=== PATIENT | female | born 1955 | race Caucasian/White ===

== ENCOUNTER 2017-03-05 16:22 | Inpatient (IN) | payer OTHER ==
[~2017-03-05] VITALS: Ht 157.5 cm; Wt 80.4 kg
[2017-03-05] MEDS ORDERED: KETOROLAC TROMETHAMINE 30 MG/ML VIAL IV STA (17:29)
[2017-03-05] MEDS ORDERED: SODIUM CHLORIDE 0.9% 1000ML 1,000 ML IV STA (17:29)
[2017-03-05] MEDS ORDERED: PROMETHAZINE HCL INJ 12.5 MG in SODIUM CHLORIDE 0.9% 50ML 50 ML IV STA (17:32)
[2017-03-05] MEDS ORDERED: TAPE1TAB11 PO (17:42)
[2017-03-05] MEDS ORDERED: TOPI50TA16 PO (17:42)
[2017-03-05] MEDS ORDERED: DULO60CA44 PO (17:42)
[2017-03-05] MEDS ORDERED: CLB/200 PO (17:42)
[2017-03-05] MEDS ORDERED: SIMV20TA2 PO (17:42)
[2017-03-05] MEDS ORDERED: SULF800T23 PO (17:42)
[2017-03-05] MEDS ORDERED: GABA-113 PO (17:42)
[2017-03-05] MEDS ORDERED: NAPR-1169 PO (17:42)
[2017-03-05] MEDS ORDERED: HYDR-3124 PO (17:42)
[2017-03-05] MEDS ORDERED: TAMS0.4C38 PO (17:42)
[2017-03-05] MEDS ORDERED: ZONI100C39 PO (17:42)
[2017-03-05] MEDS ORDERED: TRIATAB3 PO (17:42)
[2017-03-05] MEDS ORDERED: LEVO50TA6 PO (17:42)
[2017-03-05 18:35] LABS: BLOOD UREA NITROGEN 20 mg/dl (7-18); CALCIUM 9.5 mg/dl (8.5-10.1); CARBON DIOXIDE 26 mmol/L (21-32); CHLORIDE 105 mmol/L (98-107); GLUCOSE 139 mg/dl (70-99); POTASSIUM 2.6 mmol/L (3.5-5.1); SODIUM 142 mmol/L (136-145)
[2017-03-05 18:48] LABS: HEMATOCRIT 45.8 % (37-47); MEAN CELL VOLUME 87.9 fL (80-100); MEAN CORPUSCULAR HEMOGLOBIN 29.4 pg (25-34); MEAN CORPUSCULAR HGB CONC 33.4 g/dl (32-36); MEAN PLATELET VOLUME 10.2 fL (7.4-10.4); PLATELET COUNT 231 K/uL (130-400); RED BLOOD COUNT 5.21 M/uL (4.2-5.4); WHITE BLOOD COUNT 10.46 K/uL (4.8-10.8)
[2017-03-05 18:54] LABS: URINE APPEARANCE TURBID (CLEAR); URINE BILIRUBIN NEG (NEG); URINE COLOR DK YELLOW; URINE EPITHELIAL CELL AUTO >30 /lpf (0-5); URINE NITRITE NEG (NEG); URINE PH >= 9.0 (4.5-7.5); URINE SPECIFIC GRAVITY 1.019 (1.000-1.030); UROBILINOGEN NEG (NEG)
[2017-03-05 18:57] LABS: MANUAL MICROSCOPIC REQUIRED? NO; REVIEW REQ? NO
[2017-03-05] MEDS ORDERED: POTASSIUM CHLORIDE 10 MEQ / 100ML WTR IV STA (19:11)
[2017-03-05 19:26] LABS: BASO % 0.1 %; BASO ABS # 0.01 K/uL (0-0.2); COMPLETE YES; IG% 0.5 %; LYMPH % 6.3 %; LYMPH ABS # 0.66 K/uL (1.2-3.4); MONO % 2.5 %; NEUT % 90.6 %
[2017-03-05] MEDS ORDERED: POTASSIUM CHLR 20 MEQ / WTR 20 MEQ in PREMIXED WATER 100 ML IV STA (19:38)
[2017-03-05] MEDS ORDERED: MAGNESIUM HYDROXIDE SUSP 30 ML UDC PO PRN (19:45)
[2017-03-05] MEDS ORDERED: ALUMINUM/MAGNESIUM/SIMETH (MAALOX MAX) 30 ML UDC PO PRN (19:45)
[2017-03-05] MEDS ORDERED: POLYETHYLENE (MIRALAX) 17 GM PACK PO PRN (19:45)
[2017-03-05] MEDS ORDERED: METOCLOPRAMIDE HCL INJ 5 MG/ML 2 ML VIAL IV PRN (19:45)
--- NOTE | 2017-03-05 19:52 | History and Physical ---
History & Physical Date & Time of Service: Mar 05, 2017 at 19:51 Chief Complaint: Severe Pain, Nausea, Vomiting Primary Care Physician: Garett Jimenes DO History of Present Illness Source: patient, spouse Mrs China Santamaria is a 62 yo F with hx of previous L sided kidney stone who presents with intractable vomiting and severe L sided pain. She has a hx of a L sided kidney stone which occurred about 3 years ago and passed on its own after 3 months. She reports she drinks a lot of water and avoids caffeine and dark beverages to prevent further stone formation. She developed sudden onset, R sided lower abdominal pain suddenly yesterday while doing her usual activities. She reports it made her fall to her knees and was associated with vomiting. She called the ambulance and went to [facility]. She had a CT scan which showed the stone to be 2mm at the Right VUJ. She was given antiemetics and discharged home. She was also given IV and PO Potassium replacement for a K+ of 2.7 yesterday. She slept ok, but woke up in the morning with persistent vomiting. She reported severe pain again. She called [facility] and was told to go to a different facility which had Urology services. 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 She feels somewhat better now but has still recently vomited. 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 No pertinent FHx Social History Smoking Status: Never Smoker Smokeless Tobacco Use: No Alcohol Use: none Drug Use: none Marital Status: Housing status: lives with family Immunizations History of Influenza Vaccine: Unknown History of Tetanus Vaccine?: Unknown History of Pneumococcal: Unknown History of Hepatitis B Vaccine: Unknown Multi-Drug Resistant Organisms History of MDRO: No Allergies Coded Allergies: Acetaminophen (Unverified Allergy, Severe, VOMIT,TONGUE SWELLING, 03/05/17) Oxycodone (Unverified Allergy, Severe, VOMIT,TONGUE SWELLING, 03/05/17) Home Medications Scheduled Celecoxib (CeleBREX), 200 MG PO DAILY Duloxetine Hcl (Cymbalta), 60 MG PO DAILY Gabapentin (Neurontin), 600 MG PO QID Hydroxyzine Hcl (Atarax), 25 MG PO BID Levothyroxine Sodium (Levothyroxine Sodium), 50 MCG PO DAILY Naproxen (Naprosyn), 500 MG PO BID Simvastatin (Zocor), 20 MG PO HS Sulfa/Trimethoprim (Bactrim Ds 800MG/160MG), 1 TAB PO BID Tamsulosin Hcl (Flomax), 0.4 MG PO DAILY Tapentadol Hcl (Nucynta Er), 150 MG PO Q12 Topiramate (Topamax), 50 MG PO BID Triamterene/Hctz (Triamterene/Hctz 37.5-25MG), 1 TAB PO QAM Zonisamide (Zonegran), 100 MG PO DAILY Review of Systems See HPI for pertinent positives & negatives. Specifically, she has persistent nausea, vomiting. A total of 10 systems reviewed and were otherwise negative. Physical Exam Vital Signs Date Time Temp Pulse Resp B/P (MAP) Pulse Ox O2 Delivery O2 Flow Rate FiO2 03/05/17 18:57 86 18 130/71 93 Room Air 03/05/17 18:26 72 18 147/100 98 Room Air 03/05/17 16:29 36.8 80 22 144/80 100 Room Air GENERAL: Awake, alert, well-appearing, in mild distress HENT: Normocephalic, atraumatic. Oropharynx dry. EYES: Normal conjunctiva. Sclera non-icteric. NECK: Supple. No nuchal rigidity. FROM. No JVD. RESPIRATORY: Clear to auscultation. CARDIAC: Regular rate, normal rhythm. Extremities warm and well perfused. Pulses equal. ABDOMEN: Soft, non-distended. No tenderness to palpation. No rebound or guarding. No masses. MUSCULOSKELETAL: Chest examination reveals no tenderness. The back is symmetrical on inspection without obvious abnormality. There is no CVA tenderness to palpation. No joint edema. LOWER EXTREMITIES: Calves are equal size bilaterally and non-tender. No edema. No discoloration. NEURO: Normal sensorium. No sensory or motor deficits noted. SKIN: No rash or jaundice noted. Diagnostics Laboratory Results Results Past 24 Hours Test 03/05/17 18:00 03/05/17 18:05 Range/Units Urine Color DK YELLOW Urine Appearance TURBID CLEAR Urine pH >= 9.0 4.5-7.5 Urine Specific [place] 1.019 1.000-1.030 Urine Protein NEG NEG Urine Glucose (UA) NEG NEG Urine Ketones 2+ NEG Urine Occult Blood 2+ NEG Urine Nitrite NEG NEG Urine Bilirubin NEG NEG Urine Urobilinogen NEG NEG Urine Leukocyte Esterase TRACE NEG Urine WBC (Auto) 1-5 0-5 /hpf Urine RBC (Auto) >30 0-4 /hpf Urine Hyaline Casts (Auto) 1-5 0-5 /lpf Urine Epithelial Cells (Auto) >30 0-5 /lpf Urine Bacteria (Auto) NEG NEG White Blood Count 10.46 4.8-10.8 K/uL Red Blood Count 5.21 4.2-5.4 M/uL Hemoglobin 15.3 12.0-16.0 g/dL Hematocrit 45.8 37-47 % Mean Corpuscular Volume 87.9 80-100 fL Mean Corpuscular Hemoglobin 29.4 25-34 pg Mean Corpuscular Hemoglobin Concent 33.4 32-36 g/dl Platelet Count 231 130-400 K/uL Mean Platelet Volume 10.2 7.4-10.4 fL Neutrophils (%) (Auto) 90.6 % Lymphocytes (%) (Auto) 6.3 % Monocytes (%) (Auto) 2.5 % Eosinophils (%) (Auto) 0.0 % Basophils (%) (Auto) 0.1 % Neutrophils # (Auto) 9.48 1.4-6.5 K/uL Lymphocytes # (Auto) 0.66 1.2-3.4 K/uL Monocytes # (Auto) 0.26 0.11-0.59 K/uL Eosinophils # (Auto) 0.00 0-0.5 K/uL Basophils # (Auto) 0.01 0-0.2 K/uL RDW Standard Deviation 42.1 36.4-46.3 fL RDW Coefficient of Variation 13.0 11.5-14.5 % Immature Granulocyte % (Auto) 0.5 % Immature Granulocyte # (Auto) 0.05 0.00-0.02 K/uL Red Blood Cell Morphology Unremarkable Sodium Level 142 136-145 mmol/L Potassium Level 2.6 3.5-5.1 mmol/L Chloride Level 105 98-107 mmol/L Carbon Dioxide Level 26 21-32 mmol/L Anion Gap 11.0 3-11 mmol/L Blood Urea Nitrogen 20 7-18 mg/dl Creatinine 1.00 0.60-1.20 mg/dl Est Creatinine Clear Calc Drug Dose 57.9 ml/min Estimated GFR () 70.9 Estimated GFR (Non- 61.2 BUN/Creatinine Ratio 20.0 10-20 Random Glucose 139 70-99 mg/dl Calcium Level 9.5 8.5-10.1 mg/dl Troponin I < 0.015 0-0.045 ng/ml EKG Vent. rate 74 BPM AL interval 142 ms QRS duration 88 ms QT/QTc 458/508 ms P-R-T axes 93 -18 50 Normal sinus rhythm Prolonged QT Abnormal ECG No previous ECGs available Impression Assessment and Plan 62 yo F with intractable vomiting and moderate pain, likely from R sided kidney stone, contributing to hypokalemia Intractable vomiting - No Zofran due to prolonged QTc - Phenergan and Reglan PRN - IV Fluid rehydration - NPO except ice chips Pain from kidney stone - Toradol PRN - Continue Nucynta if tolerated PO R sided nephrolithiasis, 2mm - Flomax when can take PO - No evidence of sepsis at this time, but monitor for fevers Hypokalemia - Received further NSS in ED. Changed to 1/2 NSS with 20mEq of KCl for maintenance fluids - Further 20 mEq K Riders - Recheck BMP at 1am - Add on Magnesium / Phos Prolonged QTc - Daily EKG until closes Hypothyroidism - Convert to IV Synthroid for now - lower dose than her PO Chronic back pain - Attempt PO Nucynta if able - Hold Naproxen Neuropathy - Hold gabapentin tonight Hx of partial seizures? - Zonisamide - restart when can tolerate PO Code status: Full Dispo: Tele due to prolonged QTc VTE: SCDs Attending Addendum: I have physically seen and examined this patient, have directed the resident's medical activities, and agree with the H&P as noted above with the following exceptions as noted. The patient is awake, alert and oriented 3, well-developed and well-nourished , normocephalic and atraumatic, lying in bed and in mild distress secondary to pain. HEENT--PERRL, EOMI, mucous membranes and oropharynx dry. Neck--supple, no JVD or bruits, thyroid normal, trachea midline, no adenopathy. Heart--normal S1 and S2, no extra beats, no murmurs, rubs or gallops. Lungs--clear bilaterally with good air movement, no respiratory distress, no accessory muscle use. Abdomen--normal bowel sounds and soft, nontender and nondistended, no hernias or masses, no organomegaly. Extremities--no cyanosis, clubbing or edema. There are good distal pulses b/l. Dermatologic--normal skin turgor, normal color, warm and dry, no abnormal lymph nodes, no rash. Neurologic--cranial nerves II through XII grossly intact. Rheumatologic--normal range of motion, nontender, muscles and joints. Psychiatric--normal affect. Assessment and Plan: Intractable vomiting secondary to kidney stone pain-- Phenergan and Reglan IV when necessary. IV fluids. Serial BMP and magnesium levels. Toradol 30 mg IV every 6 hours when necessary. Nothing by mouth except ice chips and essential meds. Flomax 0.4 mg by mouth at bedtime. Consult urology. Hypokalemia-- replete both orally and IV. BMP and magnesium level in the a.m. Chronic pain syndrome-- continue gabapentin and Nucynta ER. Seizure disorder-- Zonegran. Level of Care Telemetry Advanced Directives Existing Advance Directive: No Existing Living Will: No Existing Power of Floor Polisher: No Resuscitation Status FULL RESUSCITATION VTE Prophylaxis VTE Risk Assessment Done? Y/N: Yes Risk Level: Moderate Given or contraindicated: SCD's Social Service Consult None Apply Resident Tracking Resident Involvement: Resident Care Provided Care Provided: Adult Hospital Medicine
[2017-03-05] MEDS ORDERED: METOCLOPRAMIDE HCL INJ 5 MG/ML 2 ML VIAL ONE (19:58)
[2017-03-05 19:59] LABS: MAGNESIUM 1.9 mg/dl (1.8-2.4); PHOSPHORUS 1.7 mg/dl (2.5-4.9)
[2017-03-05] MEDS ORDERED: PROMETHAZINE HCL INJ 25 MG in SODIUM CHLORIDE 0.9% 50ML 50 ML IV PRN (20:15)
[2017-03-05 20:16] VITALS: Ht 157.5 cm; Wt 80.4 kg
[2017-03-05 20:45] VITALS: BP 145/86; PULSE 74; TEMP 37.2; O2SAT 100
[2017-03-05] MEDS: SODIUM CHLOR 0.45% + 20MEQ KCL 1,000 ML IV SCH (20:57)
[2017-03-05] MEDS: POTASSIUM CHLR 10MEQ / WTR IV SCH ×2 (20:57→21:00)
[2017-03-05] MEDS: TAPENTADOL ER 50 MG TABCR PO SCH (21:00)
[2017-03-05] MEDS: ZOLPIDEM TARTRATE 5 MG TAB PO PRN (21:22)
--- NOTE | 2017-03-05 23:27 | EMERGENCY ROOM VISIT NOTE ---
History Report prepared by Jean: Siri Elaine Under the Supervision of: Dr. Ron Jacobo M.D. First contact with patient: 17:17 Chief Complaint: KIDNEY STONE Stated Complaint: SEVERE PAIN, NAUSEA, VOMITING Nursing Triage Summary: Stomach cramping since early this morning on the right side, hx kidney stones. While in triage pt starting having severe stabbing CP 10/10 radiating into her back. Pt verbalizes she was seen at [facility] yesterday for 2mm kidney stone confirmed with CT scan. History of Present Illness The patient is a 62 year old female who presents to the Emergency Room with complaints of an episode of a right sided kidney stone starting yesterday. The patient states that she has a history of kidney stones and that she went to the hospital in [place] yesterday. She states that she was diagnosed with a 2 mm stone there through a CT scan. She reports that they gave her Toradol while there and it provided relief. She states that she was sent home with Naproxen. She notes that they did give her Flomax. She reports that the pain is sharp and similar to those of past kidney stones. The patient states she called [facility] this morning and they told her to go to [facility] since they could not provide anything besides trying to comfort her. She complains of vomiting and states that she has not been able to keep any medicine down. She notes that she cannot keep a sip of water down either. The patient notes that this is the worst she has ever had before. The patient notes that she has chronic back pain and takes Nucynta for it. She notes that she is still urinating, but it is a brownish, milky color. The patient denies chest pain, but notes that she has a burning sensation in her chest from the vomiting. Source of History: patient Onset: yesterday Position: other (global) Quality: sharp, other ("similar to past kidney stones") Timing: other (episode) Modifying Factors (Relieving): other (Toradol) Associated Symptoms: + vomiting, + urinary symptoms, No chest pain Note: The patient complains of a burning sensation in her chest from vomiting. Review of Systems See HPI for pertinent positives & negatives. A total of 10 systems reviewed and were otherwise negative. Past Medical & Surgical Medical Problems: (1) Hx of renal calculi (2) Hypokalemia (3) Intractable vomiting with nausea (4) Right nephrolithiasis Family History Patient reports no known family medical history. Social History Smoking Status: Never Smoker Drug Use: none Marital Status: Housing Status: lives with significant other Current/Historical Medications Scheduled Celecoxib (CeleBREX), 200 MG PO DAILY Duloxetine Hcl (Cymbalta), 60 MG PO DAILY Gabapentin (Neurontin), 600 MG PO QID Hydroxyzine Hcl (Atarax), 25 MG PO BID Levothyroxine Sodium (Levothyroxine Sodium), 50 MCG PO DAILY Naproxen (Naprosyn), 500 MG PO BID Simvastatin (Zocor), 20 MG PO HS Sulfa/Trimethoprim (Bactrim Ds 800MG/160MG), 1 TAB PO BID Tamsulosin Hcl (Flomax), 0.4 MG PO DAILY Tapentadol Hcl (Nucynta Er), 150 MG PO Q12 Topiramate (Topamax), 50 MG PO BID Triamterene/Hctz (Triamterene/Hctz 37.5-25MG), 1 TAB PO QAM Zonisamide (Zonegran), 100 MG PO DAILY Allergies Coded Allergies: Acetaminophen (Unverified Allergy, Severe, VOMIT,TONGUE SWELLING, 03/05/17) Oxycodone (Unverified Allergy, Severe, VOMIT,TONGUE SWELLING, 03/05/17) Physical Exam Vital Signs Date Time Temp Pulse Resp B/P (MAP) Pulse Ox O2 Delivery O2 Flow Rate FiO2 03/05/17 18:57 86 18 130/71 93 Room Air 03/05/17 18:26 72 18 147/100 98 Room Air 03/05/17 16:29 36.8 80 22 144/80 100 Room Air Physical Exam Constitutional: Vital signs reviewed. Eyes: Pupils are equal round reactive to light. Conjunctiva are noninjected. ENT: Pharynx is clear without erythema or exudate. Mucous membranes are dry. Neck supple without meningeal signs. Respiratory: Clear to auscultation bilaterally. Breath sounds are equal bilaterally. Cardiovascular: Regular rate and rhythm. No rubs or gallops. GI: Soft, nondistended and nontender. Bowel sounds are present. Musculoskeletal: No peripheral edema. No CVA tenderness. Integumentary: No cyanosis. Neurological: The patient is awake and alert. No focal deficits. Psychiatric: Normal affect. Anxious. Medical Decision & Procedures Laboratory Results 03/05/17 18:05 Red Blood Count 5.21, Mean Corpuscular Volume 87.9, Mean Corpuscular Hemoglobin 29.4, Mean Corpuscular Hemoglobin Concent 33.4, Mean Platelet Volume 10.2, Neutrophils (%) (Auto) 90.6, Lymphocytes (%) (Auto) 6.3, Monocytes (%) (Auto) 2.5, Eosinophils (%) (Auto) 0.0, Basophils (%) (Auto) 0.1, Neutrophils # (Auto) 9.48, Lymphocytes # (Auto) 0.66, Monocytes # (Auto) 0.26, Eosinophils # (Auto) 0.00, Basophils # (Auto) 0.01 03/05/17 18:05 Test 03/05/17 18:00 03/05/17 18:05 Urine Color DK YELLOW Urine Appearance TURBID (CLEAR) Urine pH >= 9.0 (4.5-7.5) Urine Specific [place] 1.019 (1.000-1.030) Urine Protein NEG (NEG) Urine Glucose (UA) NEG (NEG) Urine Ketones 2+ (NEG) Urine Occult Blood 2+ (NEG) Urine Nitrite NEG (NEG) Urine Bilirubin NEG (NEG) Urine Urobilinogen NEG (NEG) Urine Leukocyte Esterase TRACE (NEG) Urine WBC (Auto) 1-5 /hpf (0-5) Urine RBC (Auto) >30 /hpf (0-4) Urine Hyaline Casts (Auto) 1-5 /lpf (0-5) Urine Epithelial Cells (Auto) >30 /lpf (0-5) Urine Bacteria (Auto) NEG (NEG) White Blood Count 10.46 K/uL (4.8-10.8) Red Blood Count 5.21 M/uL (4.2-5.4) Hemoglobin 15.3 g/dL (12.0-16.0) Hematocrit 45.8 % (37-47) Mean Corpuscular Volume 87.9 fL (80-100) Mean Corpuscular Hemoglobin 29.4 pg (25-34) Mean Corpuscular Hemoglobin Concent 33.4 g/dl (32-36) Platelet Count 231 K/uL (130-400) Mean Platelet Volume 10.2 fL (7.4-10.4) Neutrophils (%) (Auto) 90.6 % Lymphocytes (%) (Auto) 6.3 % Monocytes (%) (Auto) 2.5 % Eosinophils (%) (Auto) 0.0 % Basophils (%) (Auto) 0.1 % Neutrophils # (Auto) 9.48 K/uL (1.4-6.5) Lymphocytes # (Auto) 0.66 K/uL (1.2-3.4) Monocytes # (Auto) 0.26 K/uL (0.11-0.59) Eosinophils # (Auto) 0.00 K/uL (0-0.5) Basophils # (Auto) 0.01 K/uL (0-0.2) RDW Standard Deviation 42.1 fL (36.4-46.3) RDW Coefficient of Variation 13.0 % (11.5-14.5) Immature Granulocyte % (Auto) 0.5 % Immature Granulocyte # (Auto) 0.05 K/uL (0.00-0.02) Red Blood Cell Morphology Unremarkable Anion Gap 11.0 mmol/L (3-11) Est Creatinine Clear Calc Drug Dose 57.9 ml/min Estimated GFR () 70.9 Estimated GFR (Non- 61.2 BUN/Creatinine Ratio 20.0 (10-20) Calcium Level 9.5 mg/dl (8.5-10.1) Phosphorus Level 1.7 mg/dl (2.5-4.9) Magnesium Level 1.9 mg/dl (1.8-2.4) Troponin I < 0.015 ng/ml (0-0.045) Laboratory results as reviewed by me. Medications Administered Medications (Trade) Dose Ordered Sig/Holly Route Start Time Stop Time Status Last Admin Dose Admin Sodium Chloride 1,000 ml @ 999 mls/hr Q1H1M STAT IV 03/05/17 17:29 03/05/17 18:29 DC 03/05/17 18:06 999 MLS/HR Ketorolac Tromethamine (Toradol Inj) 10 mg NOW STAT IV 03/05/17 17:29 03/05/17 17:31 DC 03/05/17 18:07 10 MG Promethazine HCl 12.5 mg/Sodium Chloride 50.5 ml @ 204 mls/hr NOW STAT IV 03/05/17 17:32 03/05/17 17:46 DC 03/05/17 18:06 204 MLS/HR Potassium Chloride (Kcl 10 Meq / Wtr) 10 meq NOW STAT IV 03/05/17 19:11 03/05/17 19:17 DC 03/05/17 19:22 10 MEQ ECG Indication: back/shoulder pain Rate (beats per minute): 74 Rhythm: normal sinus Findings: no acute ischemic change, prolonged QT, no ectopy ED Course 1720: The patient was evaluated in room C9. A complete history and physical exam was performed. 1728: Ordered Toradol Inj 10 mg IV, NSS 1000 ml @ 999 mls/hr IV. 1731: Ordered Promethazine HCl 12.5 mg/Sodium Chloride 50.5 ml @ 204 mls/hr IV. 1910: Ordered Potassium Chloride 10 meq IV. 1915: I reevaluated the patient and she just vomited again. She notes her potassium was low yesterday and they gave her and IV and oral potassium. 1916: I spoke with Dr. Perez. We discussed the patient and her results. The patient will be further evaluated by her. Medical Decision This is a 62-year-old female presents with right-sided flank pain. I did perform a limited focused review of portions of the patient's old chart on the electronic medical record. The patient has had no recent pertinent visits to this hospital. The patient is hypertensive. The report from [facility] states that the patient was found to have mild hydronephrosis with a 2 mm calculus at the right UJV. The patient's urine showed signs of infection. The patient's potassium levels were 2.7 yesterday. I did evaluate the patient as noted above. IV access was established. I did treat the patient with IV Toradol and normal saline. She was also given Phenergan IV. I did order and personally review the patient's urinalysis as described above. Twelve-lead EKG was performed which shows a prolonged QT interval per my interpretation. I did order and review the patient's blood work as noted in the electronic medical record. Her potassium is 2.6. This is decreased from 2.7 yesterday. I did reassess the patient. She is still nauseated. She states that she was given IV potassium and oral potassium yesterday. Her prolonged QT is likely secondary to her hypokalemia. I did treat her with IV KCl. She was nauseated and was given Benadryl IV. I could not give her many antirheumatic agents because of the prolonged QT. She still had a vomiting episode here and so will be admitted to the hospital for further treatment of her nausea and hypokalemia. She states her pain is under control at this time. I did discuss case with the hospitalist and case management assistant. Medication Reconcilliation Current Medication List: was personally reviewed by me Blood Pressure Screening Patient's blood pressure: Elevated blood pressure Will be further monitored by hospitalist. Consults Time Called: 1912 Consulting Physician: Dr. Perez Returned Call: [address] Perez. We discussed the patient and her results. The patient will be further evaluated by her. Impression Primary Impression: Hypokalemia Additional Impressions: Prolonged Q-T interval on ECG Renal colic Intractable vomiting Scribe Attestation The scribe's documentation has been prepared under my direct and personally reviewed by me in its entirety. I confirm that the note above accurately reflects all work, treatment, procedures, and medical decision making performed by me. Departure Information Dispostion Being Evaluated By Hospitalist Referrals Garett Jimenes DO (PCP) Patient Instructions My [facility] Health Problem Qualifiers Additional Impressions: Intractable vomiting Vomiting type: unspecified Nausea presence: with nausea Qualified Codes: R11.2 - Nausea with vomiting, unspecified
[2017-03-06] VITALS (9 sets, daily range): BP systolic 111–140; BP diastolic 64–83; PULSE 69–76; TEMP 36.7–37; O2SAT 96–99
[2017-03-06 03:36] LABS: BUN/CREATININE RATIO 23.1 (10-20); CALCIUM 7.9 mg/dl (8.5-10.1); CREATININE 0.66 mg/dl (0.60-1.20); POTASSIUM 3.2 mmol/L (3.5-5.1)
[2017-03-06] MEDS ORDERED: NURSING VERBAL MED ORDER ONE (03:45)
[2017-03-06] MEDS: SODIUM CHLOR 0.45% + 20MEQ KCL 1,000 ML IV SCH ×2 (03:54→10:37)
[2017-03-06] MEDS: POTASSIUM CHLR 10MEQ / WTR IV SCH ×2 (04:40→05:30)
[2017-03-06 08:10] LABS: BASO % 0.1 %; BASO ABS # 0.01 K/uL (0-0.2); COMPLETE YES; EOS % 0.3 %; HEMATOCRIT 41.4 % (37-47); IG% 0.1 %; LYMPH % 23.2 %; LYMPH ABS # 1.73 K/uL (1.2-3.4); MEAN CELL VOLUME 88.8 fL (80-100); MEAN CORPUSCULAR HEMOGLOBIN 29.2 pg (25-34); MEAN CORPUSCULAR HGB CONC 32.9 g/dl (32-36); MEAN PLATELET VOLUME 9.7 fL (7.4-10.4); MONO % 6.7 %; NEUT % 69.6 %; PLATELET COUNT 212 K/uL (130-400); RED BLOOD COUNT 4.66 M/uL (4.2-5.4); WHITE BLOOD COUNT 7.46 K/uL (4.8-10.8)
[2017-03-06 08:35] LABS: BUN/CREATININE RATIO 17.8 (10-20); CREATININE 0.77 mg/dl (0.60-1.20); MAGNESIUM 1.8 mg/dl (1.8-2.4); POTASSIUM 2.9 mmol/L (3.5-5.1)
[2017-03-06 08:38] LABS: ALB/GLOB RATIO 1.1 (0.9-2)
[2017-03-06] MEDS: TAPENTADOL ER 50 MG TABCR PO SCH ×2 (08:45→20:55)
[2017-03-06] MEDS ORDERED: LEVOTHYROXINE SODIUM INJ 25 MCG in SYRINGE 0 ML IV SCH (09:00)
[2017-03-06] MEDS: KETOROLAC TROMETHAMINE 30 MG/ML VIAL IV PRN (10:38)
[2017-03-06] MEDS ORDERED: POTASSIUM CHLORIDE 10 MEQ TABCR PO STA (10:59)
--- NOTE | 2017-03-06 11:25 | Hospitalist Progress Note ---
Hospitalist Progress Note Date of Service Mar 06, 2017. (Devika Wood ., IVON) Subjective Ms. Santamaria is feeling better today, she has not had vomiting since last night and her right flank pain is under control. She is still experiencing some nausea. She does have some hesitancy with urination but no pain or burning. Constitutional: No fever, No chills Respiratory: No cough, No shortness of breath Abdomen: + see HPI All Other Systems: Reviewed and Negative (Devika Wood CRNP) Medications Medications (Trade) Dose Ordered Sig/Holly Route Start Time Stop Time Status Last Admin Dose Admin Sodium Chloride 1,000 ml @ 999 mls/hr Q1H1M STAT IV 03/05/17 17:29 03/05/17 18:29 DC 03/05/17 18:06 999 MLS/HR Ketorolac Tromethamine (Toradol Inj) 10 mg NOW STAT IV 03/05/17 17:29 03/05/17 17:31 DC 03/05/17 18:07 10 MG Promethazine HCl 12.5 mg/Sodium Chloride 50.5 ml @ 204 mls/hr NOW STAT IV 03/05/17 17:32 03/05/17 17:46 DC 03/05/17 18:06 204 MLS/HR Potassium Chloride (Kcl 10 Meq / Wtr) 10 meq NOW STAT IV 03/05/17 19:11 03/05/17 19:17 DC 03/05/17 19:22 10 MEQ Zolpidem Tartrate (Ambien Tab) 5 mg HSZ PRN PO 03/05/17 19:45 04/04/17 19:44 03/05/17 21:22 5 MG Tapentadol (Nucynta Er Tab) 150 mg Q12H PO 03/05/17 21:00 04/04/17 20:59 03/06/17 08:45 150 MG Ketorolac Tromethamine (Toradol Inj) 30 mg Q6H PRN IV 03/05/17 19:45 03/10/17 19:44 03/06/17 10:38 30 MG Potassium Chloride/Sodium Chloride 1,000 ml @ 150 mls/hr Q6H40M IV 03/05/17 19:45 03/06/17 15:44 03/06/17 10:37 150 MLS/HR Metoclopramide HCl (Reglan Inj) 10 mg STK-MED ONCE .ROUTE 03/05/17 19:58 03/05/17 19:59 DC 03/05/17 20:02 10 MG Potassium Chloride 10 meq/ Prmx 100 ml @ 100 mls/hr 2000,2100 IV 03/05/17 20:00 03/05/17 23:59 DC 03/05/17 21:00 100 MLS/HR Promethazine HCl 25 mg/Sodium Chloride 51 ml @ 204 mls/hr Q6H PRN IV 03/05/17 20:15 04/04/17 20:14 03/05/17 22:00 204 MLS/HR Levothyroxine Sodium 25 mcg/ Syringe 1.25 ml @ 0.625 mls/ min DAILY@09 IV 03/06/17 09:00 04/05/17 08:59 03/06/17 08:45 0.625 MLS/MIN Potassium Chloride 10 meq/ Prmx 100 ml @ 100 mls/hr Q1H IV 03/06/17 04:30 03/06/17 06:29 DC 03/06/17 05:30 100 MLS/HR (Devika Wood, IVON) Objective Vital Signs Date Time Temp Pulse Resp B/P (MAP) Pulse Ox O2 Delivery O2 Flow Rate FiO2 03/06/17 10:53 36.9 75 18 124/75 (91) 99 Room Air 03/06/17 08:00 Room Air 03/06/17 07:38 36.8 72 18 132/71 (91) 98 Room Air 03/06/17 04:00 Room Air 03/06/17 03:55 36.9 73 18 111/64 (80) 96 Room Air 03/06/17 00:17 37.0 76 17 122/68 (86) 98 Room Air 03/05/17 23:59 Room Air 03/05/17 20:45 37.2 74 18 145/86 (105) 100 Room Air 03/05/17 20:34 36.8 72 18 165/79 97 03/05/17 20:30 72 18 165/79 97 Room Air 03/05/17 20:16 Room Air 03/05/17 18:57 86 18 130/71 93 Room Air 03/05/17 18:26 72 18 147/100 98 Room Air 03/05/17 16:29 36.8 80 22 144/80 100 Room Air (Devika Wood CRNP) Physical Exam Notes: General: no distress Eyes: normal inspection, PERLL Respiratory: chest non tender, clear to auscultation, normal breath sounds, no respiratory distress, no accessory muscle use Cardiac: regular rate and rhythm, no rub or gallop, no murmur, no edema, no jvd GI/: active bowel sounds, lower abdominal tenderness, soft, non distended, costovertebral tenderness Extremities: normal range of motion, normal strength, non tender Neuro/Psych: alert and oriented x 3, normal mood and affect Skin: normal color, dry (Devika Wood CRNP) Laboratory Results Last 24 Hours Test 03/05/17 18:00 03/05/17 18:05 03/06/17 02:10 03/06/17 07:43 Urine Color DK YELLOW Urine Appearance TURBID Urine pH >= 9.0 Urine Specific [place] 1.019 Urine Protein NEG Urine Glucose (UA) NEG Urine Ketones 2+ Urine Occult Blood 2+ Urine Nitrite NEG Urine Bilirubin NEG Urine Urobilinogen NEG Urine Leukocyte Esterase TRACE Urine WBC (Auto) 1-5 /hpf Urine RBC (Auto) >30 /hpf Urine Hyaline Casts (Auto) 1-5 /lpf Urine Epithelial Cells (Auto) >30 /lpf Urine Bacteria (Auto) NEG White Blood Count 10.46 K/uL 7.46 K/uL Red Blood Count 5.21 M/uL 4.66 M/uL Hemoglobin 15.3 g/dL 13.6 g/dL Hematocrit 45.8 % 41.4 % Mean Corpuscular Volume 87.9 fL 88.8 fL Mean Corpuscular Hemoglobin 29.4 pg 29.2 pg Mean Corpuscular Hemoglobin Concent 33.4 g/dl 32.9 g/dl Platelet Count 231 K/uL 212 K/uL Mean Platelet Volume 10.2 fL 9.7 fL Neutrophils (%) (Auto) 90.6 % 69.6 % Lymphocytes (%) (Auto) 6.3 % 23.2 % Monocytes (%) (Auto) 2.5 % 6.7 % Eosinophils (%) (Auto) 0.0 % 0.3 % Basophils (%) (Auto) 0.1 % 0.1 % Neutrophils # (Auto) 9.48 K/uL 5.19 K/uL Lymphocytes # (Auto) 0.66 K/uL 1.73 K/uL Monocytes # (Auto) 0.26 K/uL 0.50 K/uL Eosinophils # (Auto) 0.00 K/uL 0.02 K/uL Basophils # (Auto) 0.01 K/uL 0.01 K/uL RDW Standard Deviation 42.1 fL 43.9 fL RDW Coefficient of Variation 13.0 % 13.5 % Immature Granulocyte % (Auto) 0.5 % 0.1 % Immature Granulocyte # (Auto) 0.05 K/uL 0.01 K/uL Red Blood Cell Morphology Unremarkable Sodium Level 142 mmol/L 145 mmol/L 142 mmol/L Potassium Level 2.6 mmol/L 3.2 mmol/L 2.9 mmol/L Chloride Level 105 mmol/L 112 mmol/L 109 mmol/L Carbon Dioxide Level 26 mmol/L 25 mmol/L 23 mmol/L Anion Gap 11.0 mmol/L 8.0 mmol/L 9.0 mmol/L Blood Urea Nitrogen 20 mg/dl 15 mg/dl 14 mg/dl Creatinine 1.00 mg/dl 0.66 mg/dl 0.77 mg/dl Est Creatinine Clear Calc Drug Dose 57.9 ml/min 87.7 ml/min 76.1 ml/min Estimated GFR () 70.9 111.3 97.3 Estimated GFR (Non- 61.2 96.0 83.9 BUN/Creatinine Ratio 20.0 23.1 17.8 Random Glucose 139 mg/dl 103 mg/dl 93 mg/dl Calcium Level 9.5 mg/dl 7.9 mg/dl 8.0 mg/dl Phosphorus Level 1.7 mg/dl Magnesium Level 1.9 mg/dl 1.8 mg/dl Troponin I < 0.015 ng/ml Total Bilirubin 0.5 mg/dl Aspartate Amino Transf (AST/SGOT) 16 U/L Alanine Aminotransferase (ALT/SGPT) 14 U/L Alkaline Phosphatase 53 U/L Total Protein 6.5 gm/dl Albumin 3.4 gm/dl Globulin 3.1 gm/dl Albumin/Globulin Ratio 1.1 (Devika Wood, IVON) Assessment and Plan 62 yo F with intractable vomiting and moderate pain, likely from R sided kidney stone, contributing to hypokalemia Intractable vomiting - No Zofran due to prolonged QTc - Phenergan and Reglan PRN - IV Fluid rehydration - no vomiting since last night - clear liquid diet Pain from kidney stone - Toradol PRN - Continue Nucynta if tolerated PO R sided nephrolithiasis, 2mm - Flomax - No evidence of sepsis at this time, but monitor for fevers - KUB and repeat in the am to assess for stone movement. May need to consult urology. Hypokalemia - Received further NSS in ED. Changed to 05/30 NSS with 20mEq of KCl for maintenance fluids - K+ 2.9 this morning - repleated - bmp in the am Hypophosphatemia -1.7 last evening - repleated Prolonged QTc - Daily EKG until closes - QTc 452 today Hypothyroidism - changed back to po Chronic back pain - Attempt PO Nucynta if able - Hold Naproxen Neuropathy - continue gabapentin Hx of partial seizures? 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 Discussed with Fanny Wood DRAFTING LAYOUT WORKER and agree with findings and plan as documented in the note. Any exceptions or clarifications are listed here: None This patient presented with renal colic vomiting and hypokalemia. This is recurrence of renal colic for her. The stone is small and likely may pass on its own. Potassium is not yet replete with continue intravenous fluids and potassium supplementation watching her EKG for QT prolongation Vital signs are stable heart regular lungs are clear abdomen is soft without tenderness Hypokalemia and mild EKG changes subsequent to renal colic and vomiting supportive care at this time including potassium supplementation surveillance KUB in the morning if stone does not pass consider urology consultation Documented By: Ron Cope (Ron Cope M.D.)
[2017-03-06] MEDS ORDERED: POTASSIUM CHLR 10 MEQ / WTR 10 MEQ in PREMIXED WATER 100 ML IV SCH (11:30)
[2017-03-06] MEDS ORDERED: TAMSULOSIN HCL 0.4 MG CAP PO ONE (12:00)
[2017-03-06] MEDS ORDERED: POTASSIUM CHLORIDE 10 MEQ TABCR PO ONE ×2 (13:00)
[2017-03-06] MEDS: POT PHOSPHATE MONOBASIC W/ SOD TAB PO SCH ×3 (13:21→20:55)
--- NOTE | 2017-03-06 16:46 | DIAGNOSTIC IMAGING REPORT ---
KUB HISTORY: kidney stone COMPARISON: None. FINDINGS: The bowel gas pattern is unremarkable. There are no dilated loops of small bowel to suggest an obstruction. No definite renal calculi. No ureteral calculi. Calcifications in the deep pelvis likely represent phleboliths. The renal shadows are mostly obscured by overlying bowel gas. A few punctate densities near the renal shadows likely reside within the bowel. No pneumoperitoneum or pneumatosis. IMPRESSION: The renal shadows are mostly obscured by overlying bowel gas. No definite renal calculi identified. Electronically signed by: Bhargav Alanis M.D. 03/06/2017 4:45 PM Dictated Date/Time: 03/06/2017 4:42 PM
[2017-03-06] MEDS: GABAPENTIN 600 MG TAB PO SCH ×2 (16:54→20:54)
[2017-03-06] MEDS: ZOLPIDEM TARTRATE 5 MG TAB PO PRN (22:49)
[2017-03-07] VITALS (9 sets, daily range): BP systolic 112–177; BP diastolic 69–101; PULSE 66–84; TEMP 36.5–36.9; O2SAT 95–100
[2017-03-07] MEDS: LEVOTHYROXINE 50 MCG TAB PO SCH (05:48)
[2017-03-07 07:05] LABS: BASO % 0.4 %; BASO ABS # 0.02 K/uL (0-0.2); COMPLETE YES; EOS % 1.7 %; HEMATOCRIT 38.4 % (37-47); IG% 0.4 %; LYMPH % 40.6 %; LYMPH ABS # 2.18 K/uL (1.2-3.4); MEAN CELL VOLUME 89.5 fL (80-100); MEAN CORPUSCULAR HEMOGLOBIN 30.1 pg (25-34); MEAN CORPUSCULAR HGB CONC 33.6 g/dl (32-36); MONO % 6.3 %; NEUT % 50.6 %; PLATELET COUNT 178 K/uL (130-400); RED BLOOD COUNT 4.29 M/uL (4.2-5.4); WHITE BLOOD COUNT 5.37 K/uL (4.8-10.8)
[2017-03-07 07:59] LABS: ALB/GLOB RATIO 1.2 (0.9-2); BUN/CREATININE RATIO 19.1 (10-20); CREATININE 0.52 mg/dl (0.60-1.20); POTASSIUM 3.4 mmol/L (3.5-5.1)
[2017-03-07] MEDS: TAPENTADOL ER 50 MG TABCR PO SCH ×2 (08:02→21:54)
[2017-03-07] MEDS: ZONISAMIDE 100 MG CAP PO SCH (08:02)
[2017-03-07] MEDS: GABAPENTIN 600 MG TAB PO SCH ×4 (08:02→20:04)
[2017-03-07] MEDS: POT PHOSPHATE MONOBASIC W/ SOD TAB PO SCH ×4 (08:02→20:04)
[2017-03-07] MEDS: TAMSULOSIN HCL 0.4 MG CAP PO SCH (08:03)
[2017-03-07] MEDS ORDERED: POTASSIUM CHLORIDE 10 MEQ TABCR PO ONE ×2 (08:10→12:00)
--- NOTE | 2017-03-07 08:37 | DIAGNOSTIC IMAGING REPORT ---
KUB CLINICAL HISTORY: Kidney stones. Vomiting and nausea. COMPARISON STUDY: KUB March 06, 2017. FINDINGS: The bowel gas pattern is normal. A 1 cm round density projecting over the upper pole of the right kidney is indeterminate but unlikely to represent a renal calculus. There are numerous pelvic calcifications which likely reflect phleboliths although make evaluation for ureteral calculi difficult. A 3 mm right pelvic calcification likely reflects a phlebolith although a right ureterovesical junction calculus could appear similar. IMPRESSION: 1. Numerous pelvic calcifications which likely reflect phleboliths although make evaluation for distal ureteral calculi difficult. Equivocal 3 mm distal right ureteral calculus. 2. 1 cm round density projecting over the upper pole of the right kidney which is indeterminate but unlikely to reflect a renal calculus. Electronically signed by: Jose Bravo M.D. 03/07/2017 8:36 AM Dictated Date/Time: 03/07/2017 8:31 AM
[2017-03-07] MEDS ORDERED: DULOXETINE HCL 60 MG CAP PO SCH (09:00)
[2017-03-07] MEDS: TOPIRAMATE 25 MG TAB PO SCH ×2 (11:37→20:06)
[2017-03-07] MEDS: KETOROLAC TROMETHAMINE 30 MG/ML VIAL IV PRN (11:42)
--- NOTE | 2017-03-07 11:52 | Hospitalist Progress Note ---
Hospitalist Progress Note Date of Service Mar 07, 2017. (Devika Wood CRNP) Subjective Pt evaluation today including: conversation w/ patient, physical exam, chart review, lab review, review of studies Voiding: no voiding problems Ms. Santamaria feels much better today, up and moving around the room. She has not vomited for the past two days, tolerating full liquid diet. Flank pain has improved. She does report some dysuria today. Constitutional: No fever, No chills Respiratory: No shortness of breath Cardiovascular: No chest pain Abdomen: No pain, No nausea, No vomiting, No diarrhea Female : + dysuria All Other Systems: Reviewed and Negative (Devika Wood CRNP) Medications Medications (Trade) Dose Ordered Sig/Holly Route Start Time Stop Time Status Last Admin Dose Admin Potassium/ Phosphorus/Sodium (Phospha 250 Neutral 155-852-130 Mg) 2 tab QID PO 03/06/17 13:00 04/05/17 12:59 03/07/17 08:02 2 TAB Tamsulosin HCl (Flomax Cap) 0.4 mg NOW ONCE PO 03/06/17 12:00 03/06/17 12:01 DC 03/06/17 11:45 0.4 MG Zonisamide (Zonegran) 100 mg DAILY PO 03/07/17 09:00 04/06/17 08:59 03/07/17 08:02 100 MG Tamsulosin HCl (Flomax Cap) 0.4 mg DAILY PO 03/07/17 09:00 04/06/17 08:59 03/07/17 08:03 0.4 MG Potassium Chloride (Klor-Con M10) 30 meq ONE ONCE PO 03/06/17 13:00 03/06/17 13:01 DC 03/06/17 13:21 30 MEQ Levothyroxine Sodium (Synthroid Tab) 50 mcg DAILYBB PO 03/07/17 06:00 04/06/17 05:59 03/07/17 05:48 50 MCG Gabapentin (Neurontin Tab) 600 mg QID PO 03/06/17 17:00 04/05/17 16:59 03/07/17 08:02 600 MG Potassium Chloride (Klor-Con M10) 20 meq 0810 ONCE PO 03/07/17 08:10 03/07/17 08:18 DC 03/07/17 10:01 20 MEQ (Devika Wood CRNP) Objective Vital Signs Date Time Temp Pulse Resp B/P (MAP) Pulse Ox O2 Delivery O2 Flow Rate FiO2 03/07/17 08:00 97 Room Air 03/07/17 07:30 36.9 70 16 114/69 (84) 97 Room Air 03/07/17 04:16 36.6 69 17 143/75 (97) 97 Room Air 03/07/17 04:00 Room Air 03/06/17 23:59 Room Air 03/06/17 23:39 36.8 74 19 120/71 (87) 96 Room Air 03/06/17 20:07 36.8 73 18 140/74 (96) 98 Room Air 03/06/17 20:00 98 Room Air 03/06/17 16:42 36.7 69 18 129/83 (98) 99 Room Air 03/06/17 16:00 99 Room Air 03/06/17 12:00 Room Air (Devika Wood CRNP) Physical Exam Notes: General: no distress Eyes: normal inspection, PERLL Respiratory: chest non tender, clear to auscultation, normal breath sounds, no respiratory distress, no accessory muscle use Cardiac: regular rate and rhythm, no rub or gallop, no murmur, no edema, no jvd GI/: active bowel sounds, lower abdominal tenderness to palpation, soft, non distended Extremities: normal range of motion, normal strength, non tender Neuro/Psych: alert and oriented x 3, normal mood and affect Skin: normal color, dry (Devika Wood CRNP) Laboratory Results Last 24 Hours Test 03/07/17 06:21 White Blood Count 5.37 K/uL Red Blood Count 4.29 M/uL Hemoglobin 12.9 g/dL Hematocrit 38.4 % Mean Corpuscular Volume 89.5 fL Mean Corpuscular Hemoglobin 30.1 pg Mean Corpuscular Hemoglobin Concent 33.6 g/dl Platelet Count 178 K/uL Mean Platelet Volume 10.0 fL Neutrophils (%) (Auto) 50.6 % Lymphocytes (%) (Auto) 40.6 % Monocytes (%) (Auto) 6.3 % Eosinophils (%) (Auto) 1.7 % Basophils (%) (Auto) 0.4 % Neutrophils # (Auto) 2.72 K/uL Lymphocytes # (Auto) 2.18 K/uL Monocytes # (Auto) 0.34 K/uL Eosinophils # (Auto) 0.09 K/uL Basophils # (Auto) 0.02 K/uL RDW Standard Deviation 45.0 fL RDW Coefficient of Variation 13.7 % Immature Granulocyte % (Auto) 0.4 % Immature Granulocyte # (Auto) 0.02 K/uL Sodium Level 145 mmol/L Potassium Level 3.4 mmol/L Chloride Level 114 mmol/L Carbon Dioxide Level 23 mmol/L Anion Gap 8.0 mmol/L Blood Urea Nitrogen 10 mg/dl Creatinine 0.52 mg/dl Est Creatinine Clear Calc Drug Dose 113.0 ml/min Estimated GFR () 120.4 Estimated GFR (Non- 103.9 BUN/Creatinine Ratio 19.1 Random Glucose 80 mg/dl Calcium Level 8.0 mg/dl Total Bilirubin 0.5 mg/dl Aspartate Amino Transf (AST/SGOT) 13 U/L Alanine Aminotransferase (ALT/SGPT) 14 U/L Alkaline Phosphatase 47 U/L Total Protein 5.7 gm/dl Albumin 3.1 gm/dl Globulin 2.6 gm/dl Albumin/Globulin Ratio 1.2 (Devika Wood ., IVON) Assessment and Plan 62 yo F with intractable vomiting and moderate pain, likely from R sided kidney stone, contributing to hypokalemia Intractable vomiting - No Zofran due to prolonged QTc - Phenergan and Reglan PRN - IV Fluid rehydration - no vomiting for two days - advanced diet to full liquid - restarted home medications Pain from kidney stone - Toradol PRN - Continue Nucynta if tolerated PO R sided nephrolithiasis, 2mm - Flomax - No evidence of sepsis at this time, but monitor for fevers - KUB was unable to definitively see stone. Renal us ordered. - Consult urology Dysuria - u/a and culture Hypokalemia - Received further NSS in ED. Changed to 1/2 NSS with 20mEq of KCl for maintenance fluids - K+ 3.4 this morning - repleated - bmp in the am Hypophosphatemia - repleated Prolonged QTc - QTc 462 today Hypothyroidism - changed back to po Chronic back pain - Nucynta - Hold Naproxen while receiving Toradol Neuropathy - continue gabapentin Hx of partial seizures? 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 Discussed with Devika Wood SHOE REPAIRER and agree with findings and plan as documented in the note. Any exceptions or clarifications are listed here: None In the morning the patient a good resolution of her pain in the anterior pain became worse. KUB does suggest her stone has not moved her her potassium is much better. We'll obtain a urology consultation Vital signs are stable Her heart is regular lungs are clear abdomen soft in the morning there was no tenderness to exam Renal colic with pain and nausea urology consultation did be considered if the patient needs any intervention and ultrasound will be obtained to determine if she has any obstruction Documented By: Ron Cope (Ron Cope M.D.)
[2017-03-07] MEDS ORDERED: MoRPHine SULFATE 2 MG/ML CARP ONE (13:43)
--- NOTE | 2017-03-07 13:49 | DIAGNOSTIC IMAGING REPORT ---
(RENAL)RETROPERITON COMP CLINICAL HISTORY: 62 years-old Female presenting with kidney stone right side. TECHNIQUE: Real-time grayscale and limited color Doppler ultrasound imaging of the kidneys and bladder was performed. COMPARISON: None. FINDINGS: Right kidney: Normal echogenicity. Right kidney measures 12.0 cm. Mild pelvocaliectasis. 6 mm hyperechoic focus at the upper pole with twinkling artifact suggesting renal calculus. Normal perfusion. Left kidney: Normal echogenicity. Left kidney measures 11.8 cm. No hydronephrosis. No convincing evidence of calculus or mass. Normal perfusion. Bladder: Incompletely distended. Left ureteral jet visualized. Hyperechoic 5 mm focus with twinkling artifact in the region of the right ureterovesical junction suggesting distal right ureteral calculus. This is not mobile with decubitus positioning. Other: None. IMPRESSION: 1. Findings concerning for obstructing 5 mm calculus in the right ureterovesical junction with resultant mild right hydronephrosis. Additional nonobstructing right renal calculus. Electronically signed by: Venkat Mclean M.D. 03/07/2017 1:48 PM Dictated Date/Time: 03/07/2017 1:46 PM
[2017-03-07] MEDS ORDERED: MoRPHine SULFATE 2 MG/ML CARP IV ONE (14:00)
--- NOTE | 2017-03-07 14:35 | Urology Consultation ---
History General Date of Service: Mar 07, 2017. Chief Complaint: right distal ureteral stone Primary Care Physician: Garett Jimenes DO Pt seen a urologist before?: Yes (kidney stones) History of Present Illness 62y/o female w/ symptomatic right ureteral stone - admitted through the ER for intractable pain and hypokalemia - no fevers, chills, rigors - no hematuria/dysuria -severe vomiting/nausea prior to admission - prior L sided kidney stones (passed spontaneously) - on HCTZ - on Topamax - reports she has had numerous UTIs in the past 6 mos (was briefly on abx ppx) Imaging Imaging: KUB, Ultrasound Laboratory Labs were reviewed and are within normal limits unless listed below. Labs are available in the chart and at [facility] Problem List Medical Problems: (1) Intractable vomiting Status: Acute (2) Prolonged Q-T interval on ECG Status: Acute (3) Renal colic Status: Acute Past History high cholesterol, kidney stones, migraines, other (neuropathic pain; Meniere's disease) Past Surgical History: , hysterectomy, spinal surgery (5 - cervical spine surgeries) Family History Patient reports no known family medical history. no fam hx of stones Social History Marital status: Housing status: lives with family Immunizations History of Influenza Vaccine: Unknown History of Tetanus Vaccine?: Unknown History of Pneumococcal: Unknown History of Hepatitis B Vaccine: Unknown History of MDRO No Allergies Coded Allergies: Acetaminophen (Unverified Allergy, Severe, VOMIT,TONGUE SWELLING, 03/05/17) Oxycodone (Unverified Allergy, Severe, VOMIT,TONGUE SWELLING, 03/05/17) Medications Home Medications: Home Meds and Scripts Medications Dose Route/Sig Max Daily Dose Days Date Category Triamterene/Hctz 37.5-25MG (Triamterene/HCTZ) 1 Tab Tab 1 Tab PO QAM 03/05/17 Reported Levothyroxine Sodium 50 Mcg Tab 50 Mcg PO DAILY 03/05/17 Reported Neurontin (Gabapentin) 300 Mg Cap 600 Mg PO QID 03/05/17 Reported Topamax (Topiramate) 50 Mg Tab 50 Mg PO BID 03/05/17 Reported Cymbalta (Duloxetine Hcl) 60 Mg Cap 60 Mg PO DAILY 03/05/17 Reported Atarax (Hydroxyzine Hcl) 25 Mg Tab 25 Mg PO BID 03/05/17 Reported CeleBREX (Celecoxib) 200 Mg Cap 200 Mg PO DAILY 03/05/17 Reported Zocor (Simvastatin) 20 Mg Tab 20 Mg PO HS 03/05/17 Reported Nucynta Er (Tapentadol Hcl) 150 Mg Tab 150 Mg PO Q12 03/05/17 Reported Zonegran (Zonisamide) 100 Mg Cap 100 Mg PO DAILY 03/05/17 Reported Bactrim Ds 800MG/160MG (Trimethoprim/Sulfamethoxazole) Tab 1 Tab PO BID 03/05/17 Reported Naprosyn (Naproxen) 500 Mg Tab 500 Mg PO BID 03/05/17 Reported Flomax (Tamsulosin Hcl) 0.4 Mg Cap 0.4 Mg PO DAILY 03/05/17 Reported Inpatient Medications: Current Inpatient Medications Medications (Trade) Dose Ordered Sig/Holly Route Start Time Stop Time Status Last Admin Dose Admin Al Hydrox/Mg Hydrox/Simethicone (Maalox Max Susp) 15 ml Q4H PRN PO 03/05/17 19:45 04/04/17 19:44 Magnesium Hydroxide (Milk Of Magnesia Susp) 30 ml Q12H PRN PO 03/05/17 19:45 04/04/17 19:44 Zolpidem Tartrate (Ambien Tab) 5 mg HSZ PRN PO 03/05/17 19:45 04/04/17 19:44 03/06/17 22:49 5 MG Polyethylene (Miralax Powder Packet) 17 gm DAILY PRN PO 03/05/17 19:45 04/04/17 19:44 Tapentadol (Nucynta Er Tab) 150 mg Q12H PO 03/05/17 21:00 04/04/17 20:59 03/07/17 08:02 150 MG Ketorolac Tromethamine (Toradol Inj) 30 mg Q6H PRN IV 03/05/17 19:45 03/10/17 19:44 03/07/17 11:42 30 MG Metoclopramide HCl (Reglan Inj) 10 mg Q6H PRN IV 03/05/17 19:45 04/04/17 19:44 Promethazine HCl 25 mg/Sodium Chloride 51 ml @ 204 mls/hr Q6H PRN IV 03/05/17 20:15 04/04/17 20:14 03/05/17 22:00 204 MLS/HR Potassium/ Phosphorus/Sodium (Phospha 250 Neutral 155-852-130 Mg) 2 tab QID PO 03/06/17 13:00 04/05/17 12:59 03/07/17 11:37 2 TAB Zonisamide (Zonegran) 100 mg DAILY PO 03/07/17 09:00 04/06/17 08:59 03/07/17 08:02 100 MG Tamsulosin HCl (Flomax Cap) 0.4 mg DAILY PO 03/07/17 09:00 04/06/17 08:59 03/07/17 08:03 0.4 MG Levothyroxine Sodium (Synthroid Tab) 50 mcg DAILYBB PO 03/07/17 06:00 04/06/17 05:59 03/07/17 05:48 50 MCG Gabapentin (Neurontin Tab) 600 mg QID PO 03/06/17 17:00 04/05/17 16:59 03/07/17 11:37 600 MG Simvastatin (Zocor Tab) 20 mg HS PO 03/07/17 21:00 04/06/17 20:59 Topiramate (Topamax Tab) 50 mg BID PO 03/07/17 09:00 04/06/17 08:59 03/07/17 11:37 50 MG Duloxetine HCl (Cymbalta Cap) 40 mg DAILY PO 03/08/17 08:00 04/07/17 08:59 Review of Systems Review of Systems Constitutional: No see HPI, No fever, No chills, No frequent headaches, No weight loss, No problem reported Eyes: No see HPI, No blurred vision, No double vision, No eye pain, No loss of night vision, No problem reported Neurological: No see HPI, No dizzy, No passing out, No numbness/tingling, No seizures, No problem reported Gastrointestinal: + abdominal pain, + nausea, + vomiting Cardiovascular: No see HPI, No heart murmur, No chest pain, No angina, No irregular heartbeat, No palpitations, No swelling ankles/feet, No problem reported Respiratory: No see HPI, No shortness of breath, No wheezing, No coughing up blood, No chronic cough, No problem reported Skin: No see HPI, No rash, No boils, No dry skin, No problem reported Musculoskeletal: + back pain, No joint pain, No neck pain, No arthritis, No problem reported Blood / Lymphatic: No see HPI, No bleed easily, No bruise easily, No swollen glands, No problem reported Ears / Nose / Throat: No see HPI, No hearing loss, No sinus, No hoarse voice, No sore throat, No problem reported Psychologic / Mental: + nervous (anxiety) Female : + kidney stones All Other Systems: Reviewed and Negative Physical Exam Vital Signs: Vital Signs Past 12 Hours Date Time Temp Pulse Resp B/P (MAP) Pulse Ox O2 Delivery O2 Flow Rate FiO2 03/07/17 14:00 Room Air 03/07/17 14:00 36.5 68 18 125/77 (93) 100 Room Air 03/07/17 12:16 36.7 77 16 112/75 (87) 98 Room Air 03/07/17 12:00 95 Room Air 03/07/17 08:00 97 Room Air 03/07/17 07:30 36.9 70 16 114/69 (84) 97 Room Air 03/07/17 04:16 36.6 69 17 143/75 (97) 97 Room Air 03/07/17 04:00 Room Air Physical Exam: General Appearance: no apparent distress Eyes: bilateral eyes normal inspection ENT: hearing grossly normal Neck: supple Respiratory/Chest: no respiratory distress Cardiovascular: regular rate, rhythm Gastrointestinal: Abdomen: normal abdomen (mildly tender in the RLQ and the R CVA) Bladder: normal bladder Neurologic/Psychiatric: alert, normal mood/affect, oriented x 3 Skin: warm/dry Lymphatic: no adenopathy Assessment & Plan Assessment & Plan 3mm R distal ureteral calc (3mm) - also with renal calcs (right - nearly 1cm) - hypokalemia secondary to intractable nausea/vomiting - given the size, she has a high probability of passage - continue MET overnight - resume IVF (off now), cont tamsulosin and pain/ nausea control - if no passage, we will have to consider ureteroscopy in the not too distant future (may be best to attempt to clear her full right side in a single setting)
[2017-03-07] MEDS ORDERED: LACTATED RINGER'S 1000ML 1,000 ML IV SCH (15:00)
[2017-03-07] MEDS ORDERED: NURSING VERBAL MED ORDER ONE ×2 (15:30→21:00)
[2017-03-07 15:42] LABS: URINE APPEARANCE CLEAR (CLEAR); URINE BILIRUBIN NEG (NEG); URINE COLOR YELLOW; URINE NITRITE NEG (NEG); URINE SPECIFIC GRAVITY 1.014 (1.000-1.030); UROBILINOGEN NEG (NEG)
[2017-03-07 15:45] LABS: MANUAL MICROSCOPIC REQUIRED? NO; REVIEW REQ? NO
[2017-03-07] MEDS ORDERED: BISMUTH SUBSALICYLATE SUSP PO SCH (21:15)
[2017-03-07] MEDS: SIMVASTATIN 20 MG TAB PO SCH (21:54)
[2017-03-07] MEDS: NITROGLYCERIN OINT 2% 1GM PACKET EXT SCH (23:00)
[2017-03-08 00:30] VITALS: BP 139/78; PULSE 67; TEMP 36.7; O2SAT 98
[2017-03-08 01:58] LABS: BLOOD UREA NITROGEN 7 mg/dl (7-18); BUN/CREATININE RATIO 12.4 (10-20); CALCIUM 8.2 mg/dl (8.5-10.1); CARBON DIOXIDE 25 mmol/L (21-32); CHLORIDE 113 mmol/L (98-107); CREATININE 0.53 mg/dl (0.60-1.20); GLUCOSE 114 mg/dl (70-99); POTASSIUM 3.3 mmol/L (3.5-5.1); SODIUM 146 mmol/L (136-145)
[2017-03-08] MEDS: NITROGLYCERIN OINT 2% 1GM PACKET EXT SCH ×4 (04:53→20:22)
[2017-03-08 06:03] LABS: BASO % 0.4 %; BASO ABS # 0.02 K/uL (0-0.2); COMPLETE YES; EOS % 1.9 %; HEMATOCRIT 40.1 % (37-47); IG% 0.4 %; LYMPH % 34.2 %; MEAN CELL VOLUME 89.3 fL (80-100); MEAN CORPUSCULAR HEMOGLOBIN 30.1 pg (25-34); MEAN CORPUSCULAR HGB CONC 33.7 g/dl (32-36); MEAN PLATELET VOLUME 9.4 fL (7.4-10.4); MONO % 6.8 %; NEUT % 56.3 %; PLATELET COUNT 174 K/uL (130-400); RED BLOOD COUNT 4.49 M/uL (4.2-5.4); WHITE BLOOD COUNT 4.68 K/uL (4.8-10.8)
[2017-03-08 06:37] LABS: CALCIUM 8.2 mg/dl (8.5-10.1); CREATININE 0.5 mg/dl (0.60-1.20); POTASSIUM 3.2 mmol/L (3.5-5.1)
[2017-03-08 06:40] LABS: ALB/GLOB RATIO 1.1 (0.9-2)
[2017-03-08] MEDS: LEVOTHYROXINE 50 MCG TAB PO SCH (07:13)
[2017-03-08 07:41] VITALS: BP 130/76; PULSE 67; TEMP 36.5; O2SAT 96
[2017-03-08] MEDS ORDERED: POTASSIUM CHLORIDE 10 MEQ TABCR PO ONE ×2 (08:00→12:00)
--- NOTE | 2017-03-08 08:05 | Progress Note ---
Subjective Date of Service: Mar 08, 2017. Subjective Pt evaluation today including: conversation w/ patient, chart review, lab review Voiding: no voiding problems 62 yo female with 3mm right UVJ stone. The pt reports passing a stone after seeing Dr. Garcia yesterday. Pain and symptoms improved after passing stone. The stone has been sent for analysis. Denies pain, n/v, dysuria, or hematuria today. She does report an episode of chest pain overnight. Normal ECG and troponins noted. Pain has improved, and she feels it was r/t indigestion. Problem List Medical Problems: (1) Intractable vomiting Status: Acute (2) Prolonged Q-T interval on ECG Status: Acute (3) Renal colic Status: Acute Review of Systems Constitutional: No fever, No chills Respiratory: No shortness of breath Cardiac: No chest pain Abdomen: No pain, No nausea, No vomiting Female : No dysuria, No hematuria Heme: No abnormal bleeding/bruising Objective Vital Signs Date Time Temp Pulse Resp B/P (MAP) Pulse Ox O2 Delivery O2 Flow Rate FiO2 03/08/17 07:41 36.5 67 16 130/76 (94) 96 Room Air 03/08/17 00:50 Room Air 03/08/17 00:30 36.7 67 18 139/78 (98) 98 Room Air 03/07/17 22:40 84 20 177/101 (126) 100 Room Air 166/69 (101) 03/07/17 16:30 99 Room Air 03/07/17 15:41 36.5 66 16 140/82 (101) 99 Room Air 03/07/17 14:00 Room Air 03/07/17 14:00 36.5 68 18 125/77 (93) 100 Room Air 03/07/17 12:16 36.7 77 16 112/75 (87) 98 Room Air 03/07/17 12:00 95 Room Air Physical Exam General Appearance: no apparent distress Eyes: normal inspection ENT: hearing grossly normal Neck: no JVD Respiratory/Chest: no respiratory distress, no accessory muscle use Cardiovascular: no JVD Extremities: normal inspection Neurologic/Psychiatric: alert, normal mood/affect, oriented x 3 Skin: normal color Laboratory Results Last 24 Hours Test 03/07/17 15:20 03/08/17 00:58 03/08/17 05:50 Urine Color YELLOW Urine Appearance CLEAR Urine pH 6.0 Urine Specific [place] 1.014 Urine Protein NEG Urine Glucose (UA) NEG Urine Ketones NEG Urine Occult Blood 2+ Urine Nitrite NEG Urine Bilirubin NEG Urine Urobilinogen NEG Urine Leukocyte Esterase TRACE Urine WBC (Auto) 1-5 /hpf Urine RBC (Auto) 0-4 /hpf Urine Hyaline Casts (Auto) 1-5 /lpf Urine Epithelial Cells (Auto) 10-20 /lpf Urine Bacteria (Auto) NEG Sodium Level 146 mmol/L 147 mmol/L Potassium Level 3.3 mmol/L 3.2 mmol/L Chloride Level 113 mmol/L 116 mmol/L Carbon Dioxide Level 25 mmol/L 23 mmol/L Anion Gap 8.0 mmol/L 8.0 mmol/L Blood Urea Nitrogen 7 mg/dl 5 mg/dl Creatinine 0.53 mg/dl 0.50 mg/dl Est Creatinine Clear Calc Drug Dose 110.9 ml/min 117.5 ml/min Estimated GFR () 119.6 121.9 Estimated GFR (Non- 103.2 105.2 BUN/Creatinine Ratio 12.4 11.0 Random Glucose 114 mg/dl 97 mg/dl Calcium Level 8.2 mg/dl 8.2 mg/dl Troponin I < 0.015 ng/ml White Blood Count 4.68 K/uL Red Blood Count 4.49 M/uL Hemoglobin 13.5 g/dL Hematocrit 40.1 % Mean Corpuscular Volume 89.3 fL Mean Corpuscular Hemoglobin 30.1 pg Mean Corpuscular Hemoglobin Concent 33.7 g/dl Platelet Count 174 K/uL Mean Platelet Volume 9.4 fL Neutrophils (%) (Auto) 56.3 % Lymphocytes (%) (Auto) 34.2 % Monocytes (%) (Auto) 6.8 % Eosinophils (%) (Auto) 1.9 % Basophils (%) (Auto) 0.4 % Neutrophils # (Auto) 2.63 K/uL Lymphocytes # (Auto) 1.60 K/uL Monocytes # (Auto) 0.32 K/uL Eosinophils # (Auto) 0.09 K/uL Basophils # (Auto) 0.02 K/uL RDW Standard Deviation 44.2 fL RDW Coefficient of Variation 13.5 % Immature Granulocyte % (Auto) 0.4 % Immature Granulocyte # (Auto) 0.02 K/uL Total Bilirubin 0.5 mg/dl Aspartate Amino Transf (AST/SGOT) 10 U/L Alanine Aminotransferase (ALT/SGPT) 14 U/L Alkaline Phosphatase 50 U/L Total Protein 5.8 gm/dl Albumin 3.0 gm/dl Globulin 2.8 gm/dl Albumin/Globulin Ratio 1.1 Assessment and Plan A/P: 3mm right UVJ stone AFVSS. Pain improved since passing stone fragment. Will check a KUB this morning. Avoid any surgical interventions for now. Plan for f/u as an outpatient to discuss management of 1cm right renal stone with ESWL vs URS. Will arrange for f/u with Dr. Garcia. No further management at this time. Pt OK for d/c home from [facility]. Discharge planning: home
--- NOTE | 2017-03-08 08:23 | DIAGNOSTIC IMAGING REPORT ---
KUB HISTORY: right ureteral stone COMPARISON: KUB 03/07/2017. FINDINGS: The bowel gas pattern is unremarkable. There are no dilated loops of small bowel to suggest an obstruction. There are few punctate densities overlying the renal shadows which favor overlying bowel contents. No definite renal calculi identified. Multiple stable calcifications within the deep pelvis which are nonspecific but favor phleboliths. No definite ureteral calculi. No pneumoperitoneum or pneumatosis. IMPRESSION: No change compared to the prior studies. No definite renal or ureteral calculi identified. Multiple calcifications in the deep pelvis remain stable. These favor phleboliths. However, a distal ureteral stone could also have a similar appearance. Electronically signed by: Bhargav Alanis M.D. 03/08/2017 8:22 AM Dictated Date/Time: 03/08/2017 8:19 AM
--- NOTE | 2017-03-08 08:23 | DIAGNOSTIC IMAGING REPORT ---
TWO VIEW CHEST CLINICAL HISTORY: Preoperative examination. FINDINGS: PA and lateral chest radiographs are obtained. No prior studies are available for comparison at the time of dictation. The cardiomediastinal silhouette is unremarkable. There is mild atherosclerotic calcification of the thoracic aorta. Nonspecific interstitial thickening is noted. There is minimal bibasilar atelectasis. No airspace consolidation or pleural effusion is seen. There is no pneumothorax. The skeletal structures are osteopenic. Mild degenerative change is noted throughout the thoracic spine. IMPRESSION: No active disease in the chest. Electronically signed by: Eddie Dumont M.D. 03/08/2017 8:22 AM Dictated Date/Time: 03/08/2017 8:21 AM
[2017-03-08] MEDS ORDERED: D5W AND 1/4NSS + 20MEQ KCL 1,000 ML IV SCH (09:00)
[2017-03-08] MEDS ORDERED: DULOXETINE HCL 60 MG CAP PO SCH (09:00)
[2017-03-08] MEDS: DULOXETINE HCL 20 MG CAP PO SCH (09:09)
[2017-03-08] MEDS: TAMSULOSIN HCL 0.4 MG CAP PO SCH (09:09)
[2017-03-08] MEDS: ZONISAMIDE 100 MG CAP PO SCH (09:10)
[2017-03-08] MEDS: POT PHOSPHATE MONOBASIC W/ SOD TAB PO SCH ×4 (09:10→20:24)
[2017-03-08] MEDS: GABAPENTIN 600 MG TAB PO SCH ×4 (09:10→20:24)
[2017-03-08] MEDS: TOPIRAMATE 25 MG TAB PO SCH ×2 (09:10→20:23)
[2017-03-08] MEDS: TAPENTADOL ER 50 MG TABCR PO SCH ×2 (09:10→20:22)
--- NOTE | 2017-03-08 15:17 | Hospitalist Progress Note ---
Hospitalist Progress Note Date of Service Mar 08, 2017. (Devika Wood CRNP) Subjective Pt evaluation today including: conversation w/ patient, physical exam Voiding: no voiding problems Ms. Santamaria is feeling much better today since passing her kidney stone yesterday. She did have an episode overnight of chest pain that appears to have been reflux. Constitutional: No fever, No chills Abdomen: No pain, No nausea, No vomiting Female : No dysuria All Other Systems: Reviewed and Negative (Devika Wood CRNP) Objective Vital Signs Date Time Temp Pulse Resp B/P (MAP) Pulse Ox O2 Delivery O2 Flow Rate FiO2 03/08/17 10:43 Room Air 03/08/17 07:41 36.5 67 16 130/76 (94) 96 Room Air 03/08/17 00:50 Room Air 03/08/17 00:30 36.7 67 18 139/78 (98) 98 Room Air 03/07/17 22:40 84 20 177/101 (126) 100 Room Air 166/69 (101) 03/07/17 16:30 99 Room Air 03/07/17 15:41 36.5 66 16 140/82 (101) 99 Room Air (Devika Wood CRNP) Physical Exam Notes: General: no distress Eyes: normal inspection, PERLL Respiratory: chest non tender, clear to auscultation, normal breath sounds, no respiratory distress, no accessory muscle use Cardiac: regular rate and rhythm, no rub or gallop, no murmur, no edema, no jvd GI/: active bowel sounds, no abd pain or tenderness, soft, non distended Extremities: normal range of motion, normal strength, non tender Neuro/Psych: alert and oriented x 3, normal mood and affect Skin: normal color, dry (Devika Wood CRNP) Laboratory Results Last 24 Hours Test 03/07/17 15:20 03/08/17 00:58 03/08/17 05:50 Urine Color YELLOW Urine Appearance CLEAR Urine pH 6.0 Urine Specific [place] 1.014 Urine Protein NEG Urine Glucose (UA) NEG Urine Ketones NEG Urine Occult Blood 2+ Urine Nitrite NEG Urine Bilirubin NEG Urine Urobilinogen NEG Urine Leukocyte Esterase TRACE Urine WBC (Auto) 1-5 /hpf Urine RBC (Auto) 0-4 /hpf Urine Hyaline Casts (Auto) 1-5 /lpf Urine Epithelial Cells (Auto) 10-20 /lpf Urine Bacteria (Auto) NEG Sodium Level 146 mmol/L 147 mmol/L Potassium Level 3.3 mmol/L 3.2 mmol/L Chloride Level 113 mmol/L 116 mmol/L Carbon Dioxide Level 25 mmol/L 23 mmol/L Anion Gap 8.0 mmol/L 8.0 mmol/L Blood Urea Nitrogen 7 mg/dl 5 mg/dl Creatinine 0.53 mg/dl 0.50 mg/dl Est Creatinine Clear Calc Drug Dose 110.9 ml/min 117.5 ml/min Estimated GFR () 119.6 121.9 Estimated GFR (Non- 103.2 105.2 BUN/Creatinine Ratio 12.4 11.0 Random Glucose 114 mg/dl 97 mg/dl Calcium Level 8.2 mg/dl 8.2 mg/dl Troponin I < 0.015 ng/ml White Blood Count 4.68 K/uL Red Blood Count 4.49 M/uL Hemoglobin 13.5 g/dL Hematocrit 40.1 % Mean Corpuscular Volume 89.3 fL Mean Corpuscular Hemoglobin 30.1 pg Mean Corpuscular Hemoglobin Concent 33.7 g/dl Platelet Count 174 K/uL Mean Platelet Volume 9.4 fL Neutrophils (%) (Auto) 56.3 % Lymphocytes (%) (Auto) 34.2 % Monocytes (%) (Auto) 6.8 % Eosinophils (%) (Auto) 1.9 % Basophils (%) (Auto) 0.4 % Neutrophils # (Auto) 2.63 K/uL Lymphocytes # (Auto) 1.60 K/uL Monocytes # (Auto) 0.32 K/uL Eosinophils # (Auto) 0.09 K/uL Basophils # (Auto) 0.02 K/uL RDW Standard Deviation 44.2 fL RDW Coefficient of Variation 13.5 % Immature Granulocyte % (Auto) 0.4 % Immature Granulocyte # (Auto) 0.02 K/uL Total Bilirubin 0.5 mg/dl Aspartate Amino Transf (AST/SGOT) 10 U/L Alanine Aminotransferase (ALT/SGPT) 14 U/L Alkaline Phosphatase 50 U/L Total Protein 5.8 gm/dl Albumin 3.0 gm/dl Globulin 2.8 gm/dl Albumin/Globulin Ratio 1.1 (Devika Wood ., IVON) Assessment and Plan 62 yo F with intractable vomiting and moderate pain, likely from R sided kidney stone, contributing to hypokalemia Intractable vomiting - No Zofran due to prolonged QTc - Phenergan and Reglan PRN - IV Fluid rehydration - no vomiting for days - advanced diet to regular diet which she is tolerating well - restarted home medications Pain from kidney stone - Toradol PRN - Continue Nucynta if tolerated PO R sided nephrolithiasis, 2mm - Flomax - No evidence of sepsis at this time, but monitor for fevers - Consult urology Dysuria - u/a and culture Hypokalemia - Received further NSS in ED. Changed to / NSS with 20mEq of KCl for maintenance fluids - K+ 3.2 this morning - repleated - bmp in the am Hypophosphatemia - repleated Prolonged QTc - QTc 442 today Hypothyroidism - changed back to po Chronic back pain - Nucynta - Hold Naproxen while receiving Toradol Neuropathy - continue gabapentin Hx of partial seizures? - Continue home seizure meds Disposition - likely able to DC tomorrow. DVT prophylaxis - SCDS, ambulation Resuscitation status - full resuscitation (Devika Wood ., IVON) Attending Attestation: Pt seen/examined, chart reviewed, care plan d/w DICTATING [employer]ACH[employer]CH[employer]IC Devika Wood. I agree w/ the calderon components of her documentation. Pt w/o abd pain, nausea, emesis. Eating well. VSS no fever gen - nad heart - RRR lungs - CTA b/l abd - soft, NT, ND, BS+ ext - no edema A/P: 1. right-sided 3mm kidney stone - resolved, has passed successfully; stone sent for analysis. Has a 2nd stone in the renal pelvis - will need outpatient elective litho in future 2. hypernatremia - hypotonic fluids, repeat BMP am. 3. hypokalemia - due to vomiting, HCTZ use at home, poor oral intake. replete , BMP am. anticipate d/c tomorrow am Manan Gonzalez mD (Manan Gonzalez MD)
[2017-03-08 16:11] VITALS: BP 111/78; PULSE 74; TEMP 36.4; O2SAT 99
[2017-03-08] MEDS: SIMVASTATIN 20 MG TAB PO SCH (20:25)
[2017-03-09 00:45] VITALS: BP 132/76; PULSE 79; TEMP 36.7; O2SAT 98
[2017-03-09] MEDS: NITROGLYCERIN OINT 2% 1GM PACKET EXT SCH ×2 (04:53→11:00)
[2017-03-09] MEDS: LEVOTHYROXINE 50 MCG TAB PO SCH (05:18)
[2017-03-09 07:47] VITALS: BP 119/73; PULSE 72; TEMP 36.8; O2SAT 99
--- NOTE | 2017-03-09 07:58 | Progress Note ---
Subjective Date of Service: Mar 09, 2017. (Lelo Ch CRNP) Subjective Pt evaluation today including: conversation w/ patient, chart review, lab review Voiding: no voiding problems 62 yo female with distal right ureteral stone. Pt passed stone 2 days ago. No longer having pain. Reviewed KUB from yesterday. I no longer see the distal stone present on previous KUB. Denies dysuria or hematuria. She remains admitted for hypokalemia. Potassium pending this morning. (Lelo Ch CRNP) Problem List Medical Problems: (1) Intractable vomiting Status: Acute (2) Prolonged Q-T interval on ECG Status: Acute (3) Renal colic Status: Acute (Lelo Ch CRNP) Review of Systems Constitutional: No fever, No chills Respiratory: No shortness of breath Cardiac: No chest pain Abdomen: No pain, No nausea, No vomiting Female : No dysuria, No hematuria Heme: No abnormal bleeding/bruising (Lelo Ch CRNP) Objective Vital Signs Date Time Temp Pulse Resp B/P (MAP) Pulse Ox O2 Delivery O2 Flow Rate FiO2 03/09/17 07:47 36.8 72 16 119/73 (88) 99 03/09/17 00:45 36.7 79 20 132/76 (94) 98 Room Air 03/09/17 00:00 Room Air 03/08/17 16:11 36.4 74 18 111/78 (89) 99 03/08/17 16:00 Room Air 03/08/17 10:43 Room Air (Lelo Ch CRNP) Physical Exam General Appearance: no apparent distress Eyes: normal inspection ENT: hearing grossly normal Neck: no JVD Respiratory/Chest: no respiratory distress, no accessory muscle use Cardiovascular: no JVD Extremities: normal inspection Neurologic/Psychiatric: alert, normal mood/affect, oriented x 3 Skin: normal color (Lelo Ch CRNP) Laboratory Results Last 24 Hours Test 03/09/17 07:25 (Lelo Ch CRNP) Assessment and Plan A/P: 3mm right UVJ stone AFVSS. Pain improved since passing stone fragment. Stone no longer visible on KUB. Avoid any surgical interventions for now. Plan for f/u as an outpatient to discuss management of 1cm right renal stone with ESWL vs URS. Will arrange for f/u with Dr. Garcia. No further management at this time. Pt OK for [facility] from [facility]. Thanks for allowing us to participate in this pt's care. Discharge planning: home (Lelo Ch CRNP) agree w plan cdalton (Kerwin Dooley M.D.)
[2017-03-09 08:03] LABS: HEMATOCRIT 44.1 % (37-47); MEAN CELL VOLUME 90.9 fL (80-100); MEAN CORPUSCULAR HEMOGLOBIN 29.9 pg (25-34); MEAN CORPUSCULAR HGB CONC 32.9 g/dl (32-36); MEAN PLATELET VOLUME 10.4 fL (7.4-10.4); PLATELET COUNT 215 K/uL (130-400); RED BLOOD COUNT 4.85 M/uL (4.2-5.4); WHITE BLOOD COUNT 5.26 K/uL (4.8-10.8)
[2017-03-09 08:28] LABS: BUN/CREATININE RATIO 12.6 (10-20); CALCIUM 8.9 mg/dl (8.5-10.1); CREATININE 0.61 mg/dl (0.60-1.20); POTASSIUM 3.7 mmol/L (3.5-5.1)
[2017-03-09] MEDS: GABAPENTIN 600 MG TAB PO SCH ×2 (08:45→11:32)
[2017-03-09] MEDS: TOPIRAMATE 25 MG TAB PO SCH (08:46)
[2017-03-09] MEDS: POT PHOSPHATE MONOBASIC W/ SOD TAB PO SCH ×2 (08:47→11:32)
[2017-03-09] MEDS: ZONISAMIDE 100 MG CAP PO SCH (08:48)
[2017-03-09] MEDS: DULOXETINE HCL 20 MG CAP PO SCH (08:50)
[2017-03-09] MEDS: TAPENTADOL ER 50 MG TABCR PO SCH (08:59)
[2017-03-09] MEDS ORDERED: POTA10CA28 PO (09:19)
[2017-03-09] MEDS ORDERED: DULO-24 PO (09:19)
--- NOTE | 2017-03-09 09:22 | Discharge Instructions ---
Discharge Instructions Date of Service Mar 09, 2017. Admission Reason for Admission: Hypokalemia, Intractable Vomiting With Nausea Discharge Discharge Diagnosis / Problem: renal calculi, hypokalemia Discharge Goals Goal(s): Improve disease control Activity Recommendations Activity Limitations: resume your previous activity . Instructions / Follow-Up Instructions / Follow-Up Please follow up with urology per their appointment. Have your potassium level drawn in one week. Results will be sent to your primary care provider. Current Hospital Diet Patient's current hospital diet: Regular Diet Discharge Diet Recommended Diet: Regular Diet Pending Studies Studies pending at discharge: yes List of pending studies: stone composition study Medical Emergencies . Who to Call and When: Medical Emergencies: If at any time you feel your situation is an emergency, please call 911 immediately. . Non-Emergent Contact Non-Emergency issues call your: Primary Care Provider Call Non-Emergent contact if: you have a fever, your pain is not controlled, you have any medication questions . Past History Medical & Surgical History: (1) Right nephrolithiasis (2) Intractable vomiting with nausea (3) Prolonged Q-T interval on ECG (4) Hypokalemia . "Provider Documentation" section prepared by Devika Wood. . VTE Core Measure Inpt VTE Proph given/why not?: SCD's
[2017-03-09 11:20] VITALS: BP 119/73; PULSE 72; TEMP 36.8; O2SAT 99
--- NOTE | 2017-03-09 12:50 | Discharge Summary ---
Discharge Summary Date of Service Mar 09, 2017. Discharge Summary Admission Date: Mar 05, 2017 at 19:44 Discharge Date: Mar 09, 2017 Discharge Disposition: Home Principal Diagnosis: renal calculi Immunizations: Have You Had Influenza Vaccine: Unknown History of Tetanus Vaccine?: Unknown History of Pneumococcal: Unknown History of Hepatitis B Vaccine: Unknown Procedures: CXR IMPRESSION: No active disease in the chest. KUB IMPRESSION: No change compared to the prior studies. No definite renal or ureteral calculi identified. Multiple calcifications in the deep pelvis remain stable. These favor phleboliths. However, a distal ureteral stone could also have a similar appearance. Renal US IMPRESSION: Findings concerning for obstructing 5 mm calculus in the right ureterovesical junction with resultant mild right hydronephrosis. Additional nonobstructing right renal calculus. Medication Reconciliation New Medications: Duloxetine HCl (Cymbalta) 20 Mg Cap 2 CAP PO DAILY for 30 Days, #42 CAP 2 Refills Take 2 capsules a day for 2 weeks and then 1 capsule a day for 2 weeks then discontinue Potassium Chloride (Micro-K Ext Rel) 10 Meq Capcr 10 MEQ PO DAILY for 8 Days, #8 CAP Continued Medications: Celecoxib (CeleBREX) 200 Mg Cap 200 MG PO DAILY Gabapentin (Neurontin) 300 Mg Cap 600 MG PO QID Hydroxyzine Hcl (Atarax) 25 Mg Tab 25 MG PO BID Levothyroxine Sodium (Levothyroxine Sodium) 50 Mcg Tab 50 MCG PO DAILY Simvastatin (Zocor) 20 Mg Tab 20 MG PO HS Tamsulosin Hcl (Flomax) 0.4 Mg Cap 0.4 MG PO DAILY Tapentadol Hcl (Nucynta Er) 150 Mg Tab 150 MG PO Q12 Topiramate (Topamax) 50 Mg Tab 50 MG PO BID Triamterene/Hctz (Triamterene/Hctz 37.5-25MG) 1 Tab Tab 1 TAB PO QAM Zonisamide (Zonegran) 100 Mg Cap 100 MG PO DAILY Discontinued Medications: Duloxetine Hcl (Cymbalta) 60 Mg Cap 60 MG PO DAILY Naproxen (Naprosyn) 500 Mg Tab 500 MG PO BID Sulfa/Trimethoprim (Bactrim Ds 800MG/160MG) Tab 1 TAB PO BID Discharge Exam Review of Systems: Constitutional: No fever, No chills Respiratory: No cough Cardiovascular: No chest pain Abdomen: No pain, No nausea, No vomiting Genitourinary - Female: No dysuria Physical Exam: General Appearance: WD/WN, no apparent distress Respiratory/Chest: chest non-tender, lungs clear, normal breath sounds, no respiratory distress, no accessory muscle use Cardiovascular: regular rate, rhythm, no murmur Abdomen / GI: normal bowel sounds, non tender, soft Neurologic/Psychiatric: alert, normal mood/affect, oriented x 3 Skin: normal color, warm/dry Hospital Course 62 yo F with intractable vomiting and moderate pain, likely from R sided kidney stone, contributing to hypokalemia Intractable vomiting - No Zofran due to prolonged QTc - Phenergan and Reglan PRN - IV Fluid rehydration - no vomiting for days - advanced diet to regular diet which she is tolerating well - restarted home medications Pain from kidney stone - Toradol PRN - Continue Nucynta if tolerated PO R sided nephrolithiasis, 2mm - Flomax - No evidence of sepsis at this time, but monitor for fevers - Consult urology - stone passed 03/08 Dysuria - u/a and culture - no apparent infection Hypokalemia - Received further NSS in ED. Changed to / NSS with 20mEq of KCl for maintenance fluids - K+ 3.7 this morning - bmp in the am Hypophosphatemia - repleated Prolonged QTc - QTc 442 03/08 Hypothyroidism - changed back to po Chronic back pain - Nucynta - Hold Naproxen while receiving Toradol Neuropathy - continue gabapentin Hx of partial seizures? - Continue home seizure meds DVT prophylaxis - SCDS, ambulation Resuscitation status - full resuscitation Total Time Spent: Less than 30 minutes This includes examination of the patient, discharge planning, medication reconciliation, and communication with other providers. Discharge Instructions Please refer to the electronic Patient Visit Report (Discharge Instructions) for additional information.
== END 2017-03-09 13:21 | disposition home or self-care (01) | DRG 694 ==
LOC: C.EDB 16:24 → C.2E 19:44 → ENRESERV 20:16 → C.4E 03-07 13:37
PROVIDERS: ADMIT Hospitalist; ATTEND Internal Medicine
DX: N20.2 Calculus of kidney with calculus of ureter (principal); E87.0 Hyperosmolality and hypernatremia; E87.6 Hypokalemia; R11.2 Nausea with vomiting, unspecified; G62.9 Polyneuropathy, unspecified; E03.9 Hypothyroidism, unspecified; G40.909 Epilepsy, unspecified, not intractable, without status epilepticus; E83.39 Other disorders of phosphorus metabolism; G89.29 Other chronic pain; M54.9 Dorsalgia, unspecified; Z79.899 Other long term (current) drug therapy

== ENCOUNTER → 2017-03-15 | Outpatient (CLI) | payer OTHER ==
[~2017-03-15] MED LIST: CIPR-255 PO; CLB/200 PO; DULO-24 PO; GABA-113 PO; HYDR-3124 PO; LEVO50TA6 PO; POTA10CA28 PO; SIMV20TA2 PO; TAMS0.4C38 PO; TAPE1TAB11 PO; TOPI50TA16 PO; TRAM-10 PO; TRIATAB3 PO; ZONI100C39 PO
--- NOTE | 2017-03-15 14:53 | DIAGNOSTIC IMAGING REPORT ---
CT SCAN OF THE ABDOMEN AND PELVIS WITHOUT CONTRAST CLINICAL HISTORY: Right flank pain. Nephrolithiasis. COMPARISON STUDY: Supine abdomen dated 03/08/2017 TECHNIQUE: CT scan of the abdomen and pelvis was performed from the lung bases to the proximal femurs. Images are reviewed in the axial, sagittal, and coronal planes. IV contrast was not administered for this examination. A dose lowering technique was utilized adhering to the principles of ALARA. CT DOSE: 431.56 mGy.cm FINDINGS: Lower chest: The heart is normal in size and configuration, without pericardial effusion. The lung bases and pleural spaces are clear. Liver: The unenhanced liver is normal in size, contour, and attenuation. There is no intrahepatic biliary ductal dilatation. Gallbladder: The gallbladder is mildly distended. No calculi are visualized. Spleen: Normal in size and attenuation. Pancreas: Unremarkable. Adrenal glands: Unremarkable. Kidneys: There are punctate nonobstructing right renal calculi. There is no hydronephrosis. There is an 8 mm right renal hypodensity, likely representing a cyst. No ureteral or bladder calculi are visualized. Bowel: There are no transition zones indicate bowel obstruction. There is no evidence of acute appendicitis. There is no evidence of acute diverticulitis. Peritoneum: There is no intraperitoneal free air or abdominal ascites. Vasculature: The abdominal aorta is normal in course and caliber. Adenopathy: None. Pelvic viscera: The uterus is surgically absent Skeletal structures: No destructive osseous lesions are seen. IMPRESSION: 1. Right-sided nephrolithiasis 2. No ureteral or bladder calculi identified 3. No evidence of bowel obstruction. No evidence of free air 4. No evidence of acute appendicitis. There is of acute diverticulitis 5. Gallbladder distention (11 cm) Electronically signed by: Cyrus Lind M.D. 03/15/2017 2:51 PM Dictated Date/Time: 03/15/2017 2:47 PM
== END | disposition home or self-care (01) ==
LOC: C.CTS 14:36
PROVIDERS: ATTEND Urology
DX: N20.0 Calculus of kidney (principal); K82.8 Other specified diseases of gallbladder

== ENCOUNTER → 2017-03-20 | Day surgery (SDC) | payer OTHER ==
[~2017-03-20] VITALS: Ht 160 cm; Wt 77.3 kg
[~2017-03-20] MED LIST changes: +ACETAMINOPHEN 325 MG TAB PO PRN; +ATROPINE SULFATE 0.1 MG/ML 5ML SYR IV PRN; +CHECK SCOPOLAMINE PATCH PLACEMENT SCH; +CIPROFLOXACIN / D5W 400 MG IV SCH; +CONRAY 30% 150ML BOTTLE ONE; +DEXAMETHASONE SOD INJ 4 MG/ML VIAL ONE; +EpHEDrine SULFATE INJ 50 MG/ML AMP IV PRN; +FENTANYL CITRATE INJ 50 MCG/1 ML 2 ML VIAL IV PRN; +FENTANYL CITRATE INJ 50 MCG/1 ML 2 ML VIAL ONE; +FLUMAZENIL 0.1 MG/1 ML 10 ML VIAL IV PRN; +HYDROCODONE/ACETAMOPHEN 5/325MG TAB PO PRN; +HYDROmorphone INJ 2 MG/ML SYR/VIAL IV PRN; +LABETALOL HCL IV 5 MG/ML 20ML IV PRN; +LACTATED RINGER'S 1000ML 1,000 ML IV SCH; +LIDOCAINE HCL 2% 2 ML VIAL (20MG/ML) ONE; +MEPERIDINE HCL 25 MG/ML CARP IV PRN; +MIDAZOLAM HCL 1 MG/ML 2ML VIAL ONE; +NALOXONE HCL 0.4 MG/1 ML VIAL/CARP IV PRN; +ONDANSETRON INJ 2 MG/ML 2 ML VIAL IV PRN; +ONDANSETRON INJ 2 MG/ML 2 ML VIAL ONE; +PHENYLEPHRINE 100MCG/ML 5ML SYR IV PRN; +PROPOFOL IV EMULSION 10 MG/ML 20 ML VIAL IV ONE; +SCOPOLAMINE 1.5 MG TDSY TD SCH; +SODIUM CHLORIDE 0.9% 1000ML 1,000 ML IV SCH; +TRAMADOL HCL 50 MG TAB PO PRN
[2017-03-20 10:34] VITALS: BP 140/74; PULSE 80; TEMP 36.6; O2SAT 96; Ht 160 cm; Wt 77.3 kg
--- NOTE | 2017-03-20 11:20 | History & Physical Bridge Note ---
H&P Re-Evaluation Bridge Note: I have examined the patient, reviewed the History & Physical and in the interval since the performance of the History & Physical I have noted the following changes of clinical significance: No changes noted
--- NOTE | 2017-03-20 12:44 | Discharge Instructions ---
Discharge Instructions Date of Service Mar 20, 2017. Admission Reason for Admission: Stones Discharge Discharge Diagnosis / Problem: stones Discharge Goals Goal(s): Decrease discomfort, Improve function, Prevent Disease Progression Activity Recommendations Activity Limitations: resume your previous activity Lifting Limitations: none Exercise/Sports Limitations: none May Resume Sexual Activity: when tolerated Shower/Bathe: no limitations Driving or Machine Use: no limitations . Instructions / Follow-Up Instructions / Follow-Up Please keep your previously scheduled follow up appointment for stent removal. Discharge Diet Recommended Diet: Regular Diet Procedures Procedures Performed: Cystoscopy, Right Ureteroscopy, Laser Lithotripsy; Stent placement Pending Studies Studies pending at discharge: no Medical Emergencies . Who to Call and When: Medical Emergencies: If at any time you feel your situation is an emergency, please call 911 immediately. . Non-Emergent Contact Non-Emergency issues call your: Urologist Call Non-Emergent contact if: you have a fever, temperature is above 101.5, your pain is not controlled, your pain is worsening . . "Provider Documentation" section prepared by Rustam Taylor. . VTE Core Measure Inpt VTE Proph given/why not?: Treatment not indicated [place] Drug Monitoring Program Search Results: patient reviewed within database Drug Monitoring Findings: Numerous nucynta rxs
--- NOTE | 2017-03-20 12:54 | [facility] Operative Report ---
Operative Report Operative Date Mar 20, 2017. Pre-Operative Diagnosis Right Nephrolithiasis Post-Operative Diagnosis Right Nephrolithiasis Procedure(s) Performed Cystoscopy, Right Ureteroscopy, Laser Lithotripsy; Stent placement ([id number]) Surgeon Dr. Enedelia Garcia Range Mechanic Surgeon(s) none Estimated Blood Loss 0mL Findings Right renal stones Specimens none per surgeon Drains 6 Sudanese by 24 cm stent Anesthesia Gen. Complication(s) None Disposition Recovery Room / PACU (stable) Indications Right renal stones Description of Procedure The patient was identified in the preoperative holding area, appropriate informed consents were reviewed and completed, and the patient was transported to the operating suite. Upon arrival, she received appropriate preoperative antibiotics in the form of ciprofloxacin. Adequate general anesthesia was achieved, and she was placed in dorsal lithotomy position where she was sterilely prepped and draped in standard fashion. To begin the case, I passed a 22 Sudanese cystoscope with 30 lens. Inspection of the bladder revealed a healthy-appearing bladder with ureteral orifices in orthotopic position. I turned my attention to the right ureteral orifice and cannulated it with a sensor wire and a 5 Sudanese open-ended catheter. I then proceeded to place a second wire alongside the first. Utilizing one of these as a working wire while reserving others a safety wire, I passed a flexible ureteroscope to the level of the kidney. Full renoscopy was completed. There were 3 notable fragments encountered. There was one in the upper pole, 1 in the midpole, and one in the lower pole. None of these were free floating, but rather essentially Torey's plaques. I freed each of these fragments from its area of the kidney and fragmented them into pieces deemed safe for spontaneous passage. I then reinspected the entire kidney. There were no other large retained fragments appreciated. I performed a very careful exit ureteroscopy prior to placing a 6 Sudanese by 24 cm double-J ureteral stent. Her bladder was decompressed, and the case concluded. She was subsequently extubated and taken to the PACU in stable condition. I attest to the content of the Intraoperative Record and any orders documented therein. Any exceptions are noted below.
[2017-03-20 13:26] VITALS: BP 120/73; PULSE 71; TEMP 36.6; O2SAT 100
--- NOTE | 2017-03-20 13:43 | Anesthesiology Progress Note ---
Anesthesia Post Op Note Date & Time Mar 20, 2017 at 13:43 Vital Signs Pain Intensity: 0 Vital Signs Past 12 Hours Date Time Temp Pulse Resp B/P (MAP) Pulse Ox O2 Delivery O2 Flow Rate FiO2 03/20/17 13:26 36.6 71 16 120/73 100 Room Air 03/20/17 13:00 36.4 71 16 128/66 99 Room Air 03/20/17 12:50 72 16 140/76 99 Room Air 03/20/17 12:40 73 14 127/72 100 Oxymask 8 03/20/17 12:31 36.8 72 16 134/73 100 Oxymask 8 03/20/17 10:34 36.6 80 20 140/74 (96) 96 Room Air Notes Mental Status: alert / awake / arousable, participated in evaluation Pt Amnestic to Procedure: Yes Nausea / Vomiting: adequately controlled Pain: adequately controlled Airway Patency, RR, SpO2: stable & adequate BP & HR: stable & adequate Hydration State: stable & adequate Anesthetic Complications: no major complications apparent
[2017-03-20 13:50] VITALS: BP 138/74; PULSE 76; O2SAT 99
[2017-03-20 14:20] VITALS: BP 140/76; PULSE 72; TEMP 36.9; O2SAT 99
== END | disposition home or self-care (01) ==
LOC: C.ACU 10:03
PROVIDERS: ATTEND Urology
DX: N20.0 Calculus of kidney (principal)

== ENCOUNTER → 2017-03-27 | Outpatient (CLI) | payer OTHER ==
[~2017-03-27] MED LIST changes: -ACETAMINOPHEN 325 MG TAB PO PRN; -ATROPINE SULFATE 0.1 MG/ML 5ML SYR IV PRN; -CHECK SCOPOLAMINE PATCH PLACEMENT SCH; -CIPROFLOXACIN / D5W 400 MG IV SCH; -CONRAY 30% 150ML BOTTLE ONE; -DEXAMETHASONE SOD INJ 4 MG/ML VIAL ONE; -EpHEDrine SULFATE INJ 50 MG/ML AMP IV PRN; -FENTANYL CITRATE INJ 50 MCG/1 ML 2 ML VIAL IV PRN; -FENTANYL CITRATE INJ 50 MCG/1 ML 2 ML VIAL ONE; -FLUMAZENIL 0.1 MG/1 ML 10 ML VIAL IV PRN; -HYDROCODONE/ACETAMOPHEN 5/325MG TAB PO PRN; -HYDROmorphone INJ 2 MG/ML SYR/VIAL IV PRN; -LABETALOL HCL IV 5 MG/ML 20ML IV PRN; -LACTATED RINGER'S 1000ML 1,000 ML IV SCH; -LIDOCAINE HCL 2% 2 ML VIAL (20MG/ML) ONE; -MEPERIDINE HCL 25 MG/ML CARP IV PRN; -MIDAZOLAM HCL 1 MG/ML 2ML VIAL ONE; -NALOXONE HCL 0.4 MG/1 ML VIAL/CARP IV PRN; -ONDANSETRON INJ 2 MG/ML 2 ML VIAL IV PRN; -ONDANSETRON INJ 2 MG/ML 2 ML VIAL ONE; -PHENYLEPHRINE 100MCG/ML 5ML SYR IV PRN; -POTA10CA28 PO; -PROPOFOL IV EMULSION 10 MG/ML 20 ML VIAL IV ONE; -SCOPOLAMINE 1.5 MG TDSY TD SCH; -SODIUM CHLORIDE 0.9% 1000ML 1,000 ML IV SCH; -TRAMADOL HCL 50 MG TAB PO PRN
--- NOTE | 2017-03-27 11:43 | DIAGNOSTIC IMAGING REPORT ---
[facility] CLINICAL HISTORY: Nephrolithiasis. FINDINGS: An AP supine abdominal radiograph is correlated with abdominal CT dated 03/15/2017. There is a nonobstructed abdominal bowel gas pattern noting moderate constipation. A right ureteral stent has been placed. No calcifications are identified along the course of the stent. No calcifications project over either kidney. Numerous pelvic phleboliths are observed. The skeletal structures are osteopenic. There is mild lumbosacral spondylosis. IMPRESSION: 1. A right ureteral stent is new from previous. No calcifications project along the course of the stent. 2. No calcifications project over either kidney. Electronically signed by: Eddie Dumont M.D. 03/27/2017 11:41 AM Dictated Date/Time: 03/27/2017 11:40 AM
== END | disposition home or self-care (01) ==
LOC: C.RAD 10:53
PROVIDERS: ATTEND Urology
DX: N20.0 Calculus of kidney (principal)

== ENCOUNTER 2023-09-01 08:02 | Inpatient (IN) ==
--- NOTE | 2023-08-09 16:14 | PAT Medication Instructions ---
Medication Instructions Date of Service August 09, 2023 Home Medications celecoxib 200 mg capsule (Celebrex) 200 mg PO QPM dicyclomine 10 mg capsule 10 mg PO BID duloxetine 20 mg capsule,delayed release (Cymbalta) 20 mg PO QAM gabapentin 300 mg capsule 300 mg PO BID levothyroxine 50 mcg tablet 50 mcg PO QAM nitrofurantoin macrocrystal 25 mg capsule (Macrodantin) 25 mg PO QAM simvastatin 20 mg tablet 20 mg PO HS tapentadol 150 mg tablet,extended release,12 hr 150 mg PO Q12H tapentadol 50 mg tablet 50 mg PO QDL triamterene 37.5 mg-hydrochlorothiazide 25 mg tablet 1 tab PO QAM zonisamide 100 mg capsule (Zonegran) 100 mg PO HS cannabidiol (CBD) extract 750 mg/ml sublingual HS pantoprazole 20 mg tablet,delayed release (Protonix) 20 mg PO BID baclofen 10 mg tablet 10 mg PO TID PRN cholecalciferol (vitamin D3) 50 mcg (2,000 unit) capsule (Vitamin D3) 50 mcg PO QAM cyanocobalamin (vitamin B-12) 1,000 mcg tablet (Vitamin B-12) 1,000 mcg PO QAM fluconazole 150 mg tablet 150 mg PO Q7D lubiprostone 8 mcg capsule 8 mcg PO BID lorazepam 0.5 mg tablet 0.5 mg PO DAILY PRN acetaminophen 650 mg tablet,extended release (Tylenol Arthritis Pain) 650 mg PO Q12H PRN melatonin 1 tab PO HS PRN Continue as directed fluconazole 150 mg tablet 150 mg PO Q7D lorazepam 0.5 mg tablet 0.5 mg PO DAILY PRN(if needed) ASK your surgeon for instructions celecoxib 200 mg capsule (Celebrex) 200 mg PO QPM DO NOT take the morning of surgery dicyclomine 10 mg capsule 10 mg PO BID triamterene 37.5 mg-hydrochlorothiazide 25 mg tablet 1 tab PO QAM cholecalciferol (vitamin D3) 50 mcg (2,000 unit) capsule (Vitamin D3) 50 mcg PO QAM cyanocobalamin (vitamin B-12) 1,000 mcg tablet (Vitamin B-12) 1,000 mcg PO QAM lubiprostone 8 mcg capsule 8 mcg PO BID Take morning of surgery With a small sip of water, OTHERWISE NOTHING TO EAT OR DRINK AFTER MIDNIGHT: duloxetine 20 mg capsule,delayed release (Cymbalta) 20 mg PO QAM gabapentin 300 mg capsule 300 mg PO BID levothyroxine 50 mcg tablet 50 mcg PO QAM nitrofurantoin macrocrystal 25 mg capsule (Macrodantin) 25 mg PO QAM tapentadol 150 mg tablet,extended release,12 hr 150 mg PO Q12H tapentadol 50 mg tablet 50 mg PO QDL pantoprazole 20 mg tablet,delayed release (Protonix) 20 mg PO BID baclofen 10 mg tablet 10 mg PO TID PRN(if needed) acetaminophen 650 mg tablet,extended release (Tylenol Arthritis Pain) 650 mg PO Q12H PRN(if needed) Take evening before surgery dicyclomine 10 mg capsule 10 mg PO BID gabapentin 300 mg capsule 300 mg PO BID simvastatin 20 mg tablet 20 mg PO HS tapentadol 150 mg tablet,extended release,12 hr 150 mg PO Q12H zonisamide 100 mg capsule (Zonegran) 100 mg PO HS cannabidiol (CBD) extract 750 mg/ml sublingual HS pantoprazole 20 mg tablet,delayed release (Protonix) 20 mg PO BID baclofen 10 mg tablet 10 mg PO TID PRN(if needed) lubiprostone 8 mcg capsule 8 mcg PO BID acetaminophen 650 mg tablet,extended release (Tylenol Arthritis Pain) 650 mg PO Q12H PRN(if needed) melatonin 1 tab PO HS PRN(if needed) Other Notes If you have any questions please call us at [phone] or [phone] or [phone] or [phone]
--- NOTE | 2023-08-14 13:43 | Anesthesiology Consultation ---
Date of Service August 14, 2023 Assessment & Plan (1) Encounter for pre-operative examination: - medical clearance 08/11/23: "...moderate risk...cleared for scheduled surgery..." Chart Review Chart Review: Acceptable Risk for Surgery and Patient seen in Pre Admission Testing Teaching & Discussion Pre-Anesthesia Teaching/Discussion Notes: Instructed NPO after midnight before surgery, except medications with 15 cc of water. Medication instructions provided according to the PAT guidelines. History Surgery Operation Date: 09/01/23 10:35 Proposed Procedures p L4-L5 Decompression and Fusion with Spinal Cord Monitoring - Garett Garg DO Height/Weight Height: 5 ft 3 in Weight: 79.8 kg Allergies Allergy/AdvReac Type Severity Reaction Status Date / Time oxycodone Allergy Severe anaphylaxis Verified 04/24/23 11:41 aspirin Allergy Intermediate "stomach Verified 04/24/23 11:41 burning" Medications Home Medications Medication Instructions Recorded Confirmed Last Taken celecoxib 200 mg capsule (Celebrex) 200 mg PO QPM 03/22/18 08/08/23 11/14/22 17:30 dicyclomine 10 mg capsule 10 mg PO BID 03/22/18 08/08/23 11/14/22 21:00 duloxetine 20 mg capsule,delayed 20 mg PO QAM 03/22/18 08/08/23 11/15/22 08:30 release (Cymbalta) gabapentin 300 mg capsule 300 mg PO BID 03/22/18 08/08/23 11/15/22 08:30 levothyroxine 50 mcg tablet 50 mcg PO QAM 03/22/18 08/08/23 11/14/22 17:30 nitrofurantoin macrocrystal 25 mg 25 mg PO QAM CHRONIC UTI 03/22/18 08/08/23 11/15/22 08:30 capsule (Macrodantin) simvastatin 20 mg tablet 20 mg PO HS 03/22/18 08/08/23 11/14/22 21:00 tapentadol 150 mg tablet,extended 150 mg PO Q12H 03/22/18 08/08/23 11/15/22 08:30 release,12 hr tapentadol 50 mg tablet 50 mg PO QDL 03/22/18 08/08/23 11/14/22 21:00 triamterene 37.5 1 tab PO QAM 03/22/18 08/08/23 11/14/22 08:30 mg-hydrochlorothiazide 25 mg tablet zonisamide 100 mg capsule 100 mg PO HS 03/22/18 08/08/23 11/14/22 21:00 (Zonegran) cannabidiol (CBD) extract 750 mg/ml sublingual HS 04/10/18 08/08/23 11/14/22 21:00 pantoprazole 20 mg tablet,delayed 20 mg PO BID 04/10/18 08/08/23 11/15/22 08:30 release (Protonix) baclofen 10 mg tablet 10 mg PO TID PRN muscle spasms 10/28/22 08/08/23 11/14/22 21:00 cholecalciferol (vitamin D3) 50 50 mcg PO QAM 10/28/22 08/08/23 11/14/22 09:00 mcg (2,000 unit) capsule (Vitamin D3) cyanocobalamin (vitamin B-12) 1,000 mcg PO QAM 10/28/22 08/08/23 11/14/22 09:00 1,000 mcg tablet (Vitamin B-12) fluconazole 150 mg tablet 150 mg PO Q7D 10/28/22 08/08/23 11/13/22 lubiprostone 8 mcg capsule 8 mcg PO BID 10/28/22 08/08/23 11/15/22 08:30 lorazepam 0.5 mg tablet 0.5 mg PO DAILY PRN Anxiety 11/15/22 08/08/23 11/15/22 08:30 acetaminophen 650 mg 650 mg PO Q12H PRN Pain 08/08/23 08/08/23 Unknown tablet,extended release (Tylenol Arthritis Pain) melatonin 1 tab PO HS PRN Sleep 08/08/23 08/08/23 Unknown Past Medical History Medical History Anxiety Cervicalgia + LUE radiculopathy, hx multiple cervical surgeries Chronic back pain Degenerative disc disease Depression GERD (gastroesophageal reflux disease) controlled, stable per pt Hiatal hernia History of COVID-19 03/2020- nausea, diarrhea, no appetite, headache > resolved (lost 18 lbs) Spring 2020 (home test)- similar symptoms as first time but "not as severe" History of Meniere's disease taking the triamterine-hctz for this Hx of sepsis admit to [facility] on 11/04/22 for sepsis due to kidney stone; d/c 11/07/22 Hyperlipidemia Hypothyroidism IBS (irritable bowel syndrome) Kidney stones hx Migraine hx Urinary tract infection Chronic daily abx Patient denies h/o stroke, seizures, heart attack, heart failure, DM, HTN, blood clots/DVTs or blood transfusions. Exercise / Class Metabolic Activity II 4-5 Yardwork/Stairs/Walk up hill (mild SOB with 1 FOS ongoing x several yrs; denies change or worsening; denies chest discomfort) Past Family History Family History Grandfather Family hx of colon cancer Grandmother Family hx of colon cancer Family/Other Family history of esophageal cancer Mother Tongue cancer Past Surgical History Surgical History Fusion of spine C2-C7, subsequent hardware removal "d/t rejection" H/O cervical discectomy H/O lithotripsy x2 History of section History of cholecystectomy Lap History of colonoscopy History of ear surgery Endolymphatic sac reconstruction (Meniere's disease) History of esophagogastroduodenoscopy (EGD) History of repair of rotator cuff Left Hx of bladder repair surgery bladder tack during MARY Hx of tubal ligation Nausea and vomiting after administration of anesthetic agent S/P cystoscopy with ureteral stent placement 10/2022 @ [facility] S/P total abdominal hysterectomy Past Anesthesia History No Hx of Anesthesia Complications and No Family Hx of Anesthesia Complications History of PONV History of PONV (denies needing scop patch) and Hx of Motion Sickness Social History Smoking Status: Never smoker Do You Dip or Chew Tobacco: No Hx Alcohol Use: No Hx Substance Use: Yes (cannabis oil) substance use type: does not use (-advised) and other Review of Systems Patient denies chest pain, shortness of breath, snoring, witnessed apneas, fever, chills, cough, wheezing, or palpitations. Physical Exam Vital Signs Vitals BP 109/72 P 72 TEMP 98.4 SP02 95% on RA RESP 18 Physical Patient resting comfortably in chair in no acute distress, alert and oriented, responding appropriately throughout visit Full cervical extension range of motion without pain TMD 3.5 finger breadths Mallampati Score 2 Dentition: intact, denies chipped or loose teeth, caps/crowns, implants or bridges Lungs: normal respiratory effort. Good air movement, clear throughout to auscultation, no adventitious breath sounds Cardiac: regular rate and rhythm, no murmurs noted Carotid arteries: negative bruit bilat Lab Results Anesthesia Preop Results Results Anesthesia Widget: WBC 5.85 K/ul (4.8-10.8) 08/14/23 Hgb 15.3 g/dl (12.0-16.0) 08/14/23 Hct 46.7 % (37.0-47.0) 08/14/23 Plt 240 K/uL (130-400) 08/14/23 Na 141 mmol/L (136-145) 08/14/23 K 3.6 mmol/L (3.5-5.1) 08/14/23 Cl 106 mmol/L (98-107) 08/14/23 CO2 30 mmol/L (21-32) 08/14/23 BUN 21 mg/dl (6-23) 08/14/23 Creat 0.85 mg/dl (0.6-1.2) 08/14/23 Glucose Level 127 mg/dl (70-99(Fasting)) H 08/14/23 PT 10.5 Seconds (9.0-12.0) 08/14/23 PTT 29 Seconds (21-31) 08/14/23 INR 1.0 (0.9-1.1) 08/14/23 Urine Color Yellow 08/14/23 Urine Appearance Cloudy (Clear) A 08/14/23 Urine pH 5.5 (4.5-7.5) 08/14/23 Urine Specific [place] 1.019 (1.000-1.030) 08/14/23 Urine Protein Negative (Negative) 08/14/23 Urine Glucose (UA) Negative (Negative) 08/14/23 Urine Ketones Negative (Negative) 08/14/23 Urine Blood Negative (Negative) 08/14/23 Urine Nitrite Negative (Negative) 08/14/23 Urine Bilirubin Negative (Negative) 08/14/23 Urine Urobilinogen Negative (Negative) 08/14/23 Urine Leukocyte Esterase 1+ (Negative) H 08/14/23 Urine WBC (Auto) 5-10 /hpf (0-5) H 08/14/23 Urine RBC (Auto) 0-4 /hpf (0-4) 08/14/23 Urine Hyaline Casts (Auto) 1-5 /lpf (0-5) 08/14/23 Urine Epithelial Cells (Auto) >30 /lpf (0-5) H 08/14/23 Urine Bacteria (Auto) Negative (Negative) 08/14/23 Blood Type O Positive 08/14/23 Antibody Screen NEGATIVE 08/14/23 Testing Electrocardiogram Date: 11/10/22 NSR, rate 68 bpm Left axis deviation Low voltage QRS Poor R wave progression, consider anterior AL vs lead placement vs LVH No significant change vs 03/26/18 EKG Chest X-Ray Date: 11/10/22 No acute chest disease.
--- NOTE | 2023-09-01 08:55 | History & Physical Bridge Note ---
Date of Service September 01, 2023 History & Physical Bridge Note I have examined the patient, reviewed the History & Physical and in the interval since the performance of the History & Physical I have noted the following changes of clinical significance: no changes noted
--- NOTE | 2023-09-01 08:56 | History & Physical Report ---
Date of Service September 01, 2023 Assessment & Plan (1) Neurogenic claudication due to lumbar spinal stenosis: Plan: L4-L5 decompression and fusion History of Present Illness Chief Complaint: Back and leg pain Primary Care Provider: Garett Jimenes DO This is a 68-year-old female who presents with chronic back and leg pain and failing course of nonoperative care is here for surgical invention. Allergies Allergy/AdvReac Type Severity Reaction Status Date / Time oxycodone Allergy Severe anaphylaxis Verified 09/01/23 08:39 aspirin Allergy Intermediate "stomach Verified 09/01/23 08:39 burning" Home Medications Medication Instructions Recorded Confirmed Type celecoxib 200 mg capsule (Celebrex) 200 mg PO QPM 03/22/18 09/01/23 History dicyclomine 10 mg capsule 10 mg PO BID 03/22/18 09/01/23 History duloxetine 20 mg capsule,delayed 20 mg PO QAM 03/22/18 09/01/23 History release (Cymbalta) gabapentin 300 mg capsule 300 mg PO BID 03/22/18 09/01/23 History levothyroxine 50 mcg tablet 50 mcg PO QAM 03/22/18 09/01/23 History nitrofurantoin macrocrystal 25 mg 25 mg PO QAM CHRONIC UTI 03/22/18 09/01/23 History capsule (Macrodantin) simvastatin 20 mg tablet 20 mg PO HS 03/22/18 09/01/23 History tapentadol 150 mg tablet,extended 150 mg PO Q12H 03/22/18 09/01/23 History release,12 hr tapentadol 50 mg tablet 50 mg PO QDL 03/22/18 09/01/23 History triamterene 37.5 1 tab PO QAM 03/22/18 09/01/23 History mg-hydrochlorothiazide 25 mg tablet zonisamide 100 mg capsule 100 mg PO HS 03/22/18 09/01/23 History (Zonegran) cannabidiol (CBD) extract 750 mg/ml sublingual HS 04/10/18 09/01/23 History pantoprazole 20 mg tablet,delayed 20 mg PO BID 04/10/18 09/01/23 History release (Protonix) baclofen 10 mg tablet 10 mg PO TID PRN muscle spasms 10/28/22 09/01/23 History cholecalciferol (vitamin D3) 50 50 mcg PO QAM 10/28/22 09/01/23 History mcg (2,000 unit) capsule (Vitamin D3) cyanocobalamin (vitamin B-12) 1,000 mcg PO QAM 10/28/22 09/01/23 History 1,000 mcg tablet (Vitamin B-12) fluconazole 150 mg tablet 150 mg PO Q7D 10/28/22 09/01/23 History lubiprostone 8 mcg capsule 8 mcg PO BID 10/28/22 09/01/23 History lorazepam 0.5 mg tablet 0.5 mg PO DAILY PRN Anxiety 11/15/22 09/01/23 History acetaminophen 650 mg 650 mg PO Q12H PRN Pain 08/08/23 09/01/23 History tablet,extended release (Tylenol Arthritis Pain) melatonin 1 tab PO HS PRN Sleep 08/08/23 09/01/23 History Past Med/Surg History Medical History Anxiety Cervicalgia + LUE radiculopathy, hx multiple cervical surgeries Chronic back pain Degenerative disc disease Depression GERD (gastroesophageal reflux disease) controlled, stable per pt Hiatal hernia History of COVID-19 03/2020- nausea, diarrhea, no appetite, headache > resolved (lost 18 lbs) Spring 2020 (home test)- similar symptoms as first time but "not as severe" History of Meniere's disease taking the triamterine-hctz for this Hx of sepsis admit to [facility] on 11/04/22 for sepsis due to kidney stone; d/c 11/07/22 Hyperlipidemia Hypothyroidism IBS (irritable bowel syndrome) Kidney stones hx Migraine hx Urinary tract infection Chronic daily abx Surgical History Fusion of spine C2-C7, subsequent hardware removal "d/t rejection" H/O cervical discectomy H/O lithotripsy x2 History of section History of cholecystectomy Lap History of colonoscopy History of ear surgery Endolymphatic sac reconstruction (Meniere's disease) History of esophagogastroduodenoscopy (EGD) History of repair of rotator cuff Left Hx of bladder repair surgery bladder tack during MARY Hx of tubal ligation Nausea and vomiting after administration of anesthetic agent S/P cystoscopy with ureteral stent placement 10/2022 @ [facility] S/P total abdominal hysterectomy Family History Grandfather Family hx of colon cancer Grandmother Family hx of colon cancer Family/Other Family history of esophageal cancer Mother Tongue cancer Social History Smoking Status: Never smoker Second Hand Exposure: Yes (hx growing up); Do You Dip or Chew Tobacco: No; Tobacco Cessation Education Requested by Patient: No Hx Alcohol Use: No Hx Substance Use: Yes (cannabis oil) Preferred Language: Portuguese Communication Ability: Effective Mechanical Research Engineer Required: No Beliefs That Will Affect Care: None Current Living Situation: Spouse and Family Other Information That Helps Us Care for You: No Feels Safe at Home: Yes Safety Concerns: Feels Safe At This Time Assistive Devices: Cane and Glasses Assistive Devices Comment: cane prn Physical Exam Physical Exam: Patient is alert and oriented Heart regular and rhythm Lungs clear Results & Data Results & Data Vital Signs (Past 12 Hours) Vital Signs Temp Pulse Resp BP Pulse Ox O2 Del Method 09/01/23 08:22 36.6 C 69 16 136/74 96 Room Air
[2023-09-01] MEDS ORDERED: ePHEDrine sulfate 50 MG/ML AMP IV PRN (08:59)
[2023-09-01] MEDS ORDERED: ONDANSETRON INJ 2 MG/ML 2 ML VIAL IV PRN ×2 (08:59→13:32)
[2023-09-01] MEDS ORDERED: ATROPINE SULFATE 0.1 MG/ML 10ML SYR IV PRN (08:59)
[2023-09-01] MEDS: LR 15ML/HR IV SCH (09:07)
[2023-09-01] MEDS: CeleBREX 200 MG CAP PO SCH (09:08)
[2023-09-01] MEDS: LR 60ML/HR IV SCH (09:09)
[2023-09-01] MEDS ORDERED: MIDAZOLAM HCL 1 MG/ML 2ML VIAL ONE (09:31)
[2023-09-01] MEDS ORDERED: fentaNYL citrate PF 100 MCG/2 ML VIAL ONE ×2 (09:31→10:36)
[2023-09-01] MEDS ORDERED: SCOPOLAMINE 1 MG TDSY TD ONE (09:39)
[2023-09-01] MEDS: ceFAZolin 2000MG 2,000 MG/15 ML SYR IV SCH ×2 (09:42→18:15)
[2023-09-01] MEDS: GABAPENTIN 300 MG CAP PO SCH ×2 (09:43→21:06)
[2023-09-01] MEDS: BUPIVACAINE/EPINEPHRINE 0.25% 1:200,000 30 ML VIAL ONE (10:07)
[2023-09-01] MEDS ORDERED: LIDOCAINE 2% 2 ML VIAL/AMP(20MG/ML) INFIL ONE (10:11)
[2023-09-01] MEDS ORDERED: DEXAMETHASONE SOD INJ 4 MG/ML VIAL ONE ×2 (10:11→10:54)
[2023-09-01] MEDS ORDERED: ROCURONIUM BROMIDE 10 MG/ML 5 ML VIAL IV ONE (10:11)
[2023-09-01] MEDS ORDERED: PROPOFOL IV EMULSION 10 MG/ML 20 ML VIAL IV ONE (10:11)
[2023-09-01] MEDS ORDERED: diphenhydrAMINE 50 MG/ML VIAL ONE (10:16)
[2023-09-01] MEDS ORDERED: GLYCOPYRROLATE 0.2 MG/ML VIAL ONE (10:20)
[2023-09-01] MEDS ORDERED: SUGAMMADEX SODIUM 200 MG/2 ML VIAL IV ONE (10:20)
[2023-09-01] MEDS: FLOSEAL HEMOSTATIC MATRIX 10ML TOP ONE (11:08)
[2023-09-01] MEDS: ceFAZolin 330 MG/ML 1 GM VIAL ONE (11:08)
--- NOTE | 2023-09-01 11:18 | Operative Report ---
Post Operative Report Pre & Post Diagnosis Operation Date: 09/01/23 09:25 Pre-Op Diagnosis: Neurogenic claudication due to lumbar spinal stenosis Lumbar radiculopathy Post-Op Diagnosis: Same I identified the patient and participated in the time-out.: Yes Procedure Operation Date: 09/01/23 09:25 Actual Procedures #1 lumbar decompression bilaterally facetectomies and foraminotomies L3-L4 L4-5 #2 posterior spinal fusion L4-5. #3 placed posterior instrumentation L4-5 per #4 interbody fusion L4-5 and #5 placement Spira 13 x 26 mm x 2 at L4-5 and #6 placement locally harvested morselized autograft in the posterior gutters. #7 placement of infuse collagen sponge combined with Koros in the posterior lateral gutters and Morpheus bone graft interbody space. Surgeon Garett Garg, DO Platform Loader Jp Ruiz Estimated Blood Loss 100 Findings Consistent with Post-Op Diagnosis Specimens None Indications This is a 68-year-old female who presents above-mentioned diagnosis after failed course of nonoperative care she is here for surgical invention. Description of Procedure Patient was met with identified informed consent obtained. Patient was then taken to the operative suite underwent patient placed in a prone position on the Paul table on top of the Sedrick frame. All bony prominences well-padded eyes inspected to ensure no external pressure placed upon them. This point the lumbar spine was prepped and draped in a sterile fashion. Sharp dissection with assistance of Bovie cautery was performed down to and exposing the lamina transverse processes of L4-5 bilaterally. From caudal cephalad fashion complete laminectomy of L4 was performed including bilateral medial facetectomies and foraminotomies followed by partial laminectomy of L3 including bilateral medial facetectomies and foraminotomies addressing all stenosis. Pedicle screws were then placed at L4-5 bilaterally with assistance of fluoroscopy and appropriate sized jalil placed. By way of transforaminal approach on the right discectomy was performed endplates guided to subcortical bleeding bone and a 13 x 26 mm Spira cage filled with Morpheus bone graft tapped in position. Then proceeded to the left transforaminal region at L4-L5. Again discectomy performed endplates guided to subcortical mean bone and the second 13 x 26 mm Spira cage filled with Morpheus bone graft tapped in position. The rods were then compressed locked into final position bilaterally. The transverse processes of L4-5 burred to subcortically and bone. Infuse collagen sponge combined with Koros bone graft and locally harvested morselized graft placed in posterior gutters. 15 round YURIY inserted. The incision was then closed with 1 Vicryl the fascia 2-0 Vicryl subcutaneously and 4 Monocryl for final skin closure. Steri-Strips dressings placed. Patient waken taken to PACU stable condition. Please note spinal cord monitoring was utilized at the procedure no changes noted. Lastly Jp Ruiz was present at the entire surgeon while the patient positioning complex portion of the surgery and final skin closure. I attest to the content of the Intraoperative Record and any orders documented therein. Any exceptions are noted below.
[2023-09-01] MEDS: fentaNYL citrate PF 100 MCG/2 ML VIAL IV PRN (12:10)
--- NOTE | 2023-09-01 13:03 | Anesthesiology Progress Note ---
Date of Service September 01, 2023 Anesthesia Post Procedure Vital Signs Vital Signs: Temp Pulse Resp BP BP Pulse Ox O2 Del Method 09/01/23 12:40 36.4 C L 09/01/23 12:30 66 16 114/68 98 Nasal Cannula 09/01/23 12:20 65 15 130/68 100 Nasal Cannula 09/01/23 12:10 71 15 147/83 H 100 Oxymask 09/01/23 12:00 69 13 149/75 H 100 Oxymask 09/01/23 11:50 75 14 137/81 100 Oxymask 09/01/23 11:42 36.1 C L 82 14 148/81 H 100 Oxymask 09/01/23 08:22 36.6 C 69 16 136/74 96 Room Air O2 Flow Rate 09/01/23 12:40 09/01/23 12:30 2 09/01/23 12:20 4 09/01/23 12:10 5 09/01/23 12:00 5 09/01/23 11:50 5 09/01/23 11:42 5 09/01/23 08:22 Pain Intensity Lower Back: Pain Intensity: 7 Transfer of Care Handoff Completed per policy Notes Mental Status: alert / awake / arousable and participated in evaluation Patient Amnestic to Procedure: Yes Nausea / Vomiting: adequately controlled Pain: adequately controlled Airway Patency, RR, SpO2: stable & adequate BP & HR: stable & adequate Hydration State: stable & adequate Anesthetic Complications: no major complications apparent and Pt Satisfied with anesthetic care
[2023-09-01] MEDS ORDERED: METOCLOPRAMIDE HCL INJ 5 MG/ML 2 ML VIAL IV PRN (13:32)
[2023-09-01] MEDS ORDERED: PROMETHAZINE HCL 12.5 MG in SODIUM CHLORIDE 0.9% 50 ML IV PRN (13:32)
[2023-09-01] MEDS ORDERED: DO NOT ADMINISTER PNEUMOCOCCAL VACCINE PRN (13:32)
[2023-09-01] MEDS ORDERED: hydrOXYzine HCl 25 MG TAB PO PRN (13:32)
[2023-09-01] MEDS ORDERED: HYDROmorphone INJ 0.5 MG/0.5 ML SYR IV PRN (13:32)
[2023-09-01] MEDS ORDERED: HYDROmorphone INJ 1 MG/ML SYRINGE IV PRN (13:32)
[2023-09-01] MEDS ORDERED: MAGNESIUM HYDROXIDE SUSP 30 ML UDC PO PRN (13:32)
[2023-09-01] MEDS ORDERED: HYDROCODONE/ACETAMOPHEN 5/325MG TAB PO PRN (13:32)
[2023-09-01] MEDS ORDERED: bisacodyL 10 MG SUPP PR PRN (13:32)
[2023-09-01] MEDS ORDERED: ONDANSETRON 4 MG OD TAB PO PRN (13:32)
[2023-09-01] MEDS ORDERED: diphenhydrAMINE Capsule 25 MG CAP PO PRN (13:32)
[2023-09-01] MEDS ORDERED: NALOXONE HCL 0.4 MG/1 ML VIAL/CARP IV PRN (13:32)
[2023-09-01] MEDS ORDERED: ACETAMINOPHEN 500 MG TAB PO PRN (13:32)
[2023-09-01] MEDS ORDERED: DO NOT ADMINISTER FLU VACCINE PRN (13:32)
[2023-09-01] MEDS ORDERED: FAMOTIDINE 20 MG TAB PO PRN (13:32)
[2023-09-01] MEDS ORDERED: SOD PHOSPHATE/SOD BIPHOSPHATE ENEMA 132 ML BTL PR PRN (13:32)
[2023-09-01] MEDS ORDERED: ACETAMINOPHEN 1,000 MG/100 ML VIAL IV PRN (13:32)
[2023-09-01] MEDS ORDERED: LORazepam 0.5 MG TAB PO PRN (13:32)
[2023-09-01] MEDS ORDERED: ALUMINUM/MAGNESIUM SUSP 30 ML UDC PO PRN (13:32)
[2023-09-01] MEDS ORDERED: LORazepam 0.5 MG in SYRINGE 0.25 ML IV PRN (13:32)
[2023-09-01] MEDS: DROPERIDOL 5 MG/2 ML VIAL ONE (13:39)
--- NOTE | 2023-09-01 13:53 | Fluoroscopy Report ---
FL lumbar spine 2-3V CLINICAL HISTORY: L4-L5 DECOMP/FUSION COMPARISON STUDY: None. FLUOROSCOPY TIME: 14 seconds. Ka, r: 11.92 mGy FLUOROSCOPIC IMAGES: 2 FINDINGS: Fluoroscopy was provided during L4-L5 discectomy, decompression and fusion. There are bilat eral pedicle screws at the L4 and L5 levels. Hardware is intact. IMPRESSION: Fluoroscopy provided during L4-L5 decompression and fusion. ACT 112: Negative or not required by law. Electronically signed by: Jose Bravo M.D. 09/01/2023 1:52 PM
--- NOTE | 2023-09-01 14:29 | Consultation ---
Date of Consultation September 01, 2023 Assessment & Plan (1) S/P spinal surgery: (2) Neurogenic claudication due to lumbar spinal stenosis: Post op day# 0 S/P decompression and fusion L3-L5 by Dr Garg EBL#100ml Pain management per ortho Wound management per ortho PT/OT as appropriate DVT prophylaxis per ortho Incentive spirometry Monitor H&H for acute blood loss anemia, pre-op Hgb: 15 (3) Meniere disease: Hold HCTZ/Triamterene and reconsider tomorrow if BP allows (4) Hyperlipidemia: Continue simvastatin (5) Chronic pain: History of chronic neck and back pain On gabapentin, CBD extract and Nucynta CBD held Gabapentin and Nucynta continued by orthospine (6) IBS (irritable bowel syndrome): Continue to dicyclomine, lubiprostone (7) Hypothyroidism: Continue levothyroxine (8) Depression: (9) Anxiety: Continue duloxetine (10) Migraine: History migraine headache Denies current headache Continue topiramate (11) GERD (gastroesophageal reflux disease): Continue PPI (12) Chronic UTI: On chronic suppression with nitrofurantoin DVT Prophylaxis SCDs Disposition per primary service Follows with Dr Gartet Jimenes in [place] for routine care Pt was seen and care coordinated with Dr Amato. See addendum Thank you for this consultation. We will follow the patient with you during their hospital stay. You can [facility] via [facility] Supervising Physician Co-Signing Physician Notes Patient was seen and examined independently at bedside. Chart reviewed. Case discussed with and agree Alessia DAVIS with the documentation above. In summary, this is a 68 year old female with lumbar spinal stenosis with neurogenic claudication who underwent decompression and fusion L3-L5 by Dr Garg today. Vitals stable. Patient stable. Meds reviewed. Labs for am. Pain management, DVT ppx, activities and disposition per primary team. On exam- General: Lying comfortably in bed, not in distress HEENT: VALERIO, MMM Chest: Clear breath sounds bilaterally, no wheezes or crackles CVS: Regular rate and rhythm, normal heart sounds, no murmur Abdomen: Soft, non tender, not distended, normal bowel sounds Neuro: Awake, alert, oriented, conversing well, non focal Extremities: No cyanosis, clubbing or edema Surgical dressing noted, YURIY drain with serosanguineous output Rest as per the note above. History of Present Illness Requesting Physician: Dr Garg Reason for Consultation: Post op medical management Attending Physician: Garett Garg, History of Present Illness Patient is 68-year-old female with PMH dyslipidemia, Mnire's disease, history migraine headache, GERD, chronic UTI, hypothyroidism, depression, anxiety, IBS, chronic pain, DDD seen in medical consultation s/p decompression and fusion L3- L5 today by Dr Garg. Post op patient reports some back pain. Denies nausea or vomiting. Was able to have liquid diet for lunch without problems. States last BM yesterday. Denies fever/chills, MISHRA, dizziness, neck pain, CP, SOB, palpitations, cough, rhinorrhea, abdominal pain, extremity weakness, extremity edema, rashes, urinary symptoms. Allergies Allergy/AdvReac Type Severity Reaction Status Date / Time oxycodone Allergy Severe anaphylaxis Verified 09/01/23 08:39 aspirin Allergy Intermediate "stomach Verified 09/01/23 08:39 burning" Home Medications Medication Instructions Recorded Confirmed Type celecoxib 200 mg capsule (Celebrex) 200 mg PO QPM 03/22/18 09/01/23 History dicyclomine 10 mg capsule 10 mg PO BID 03/22/18 09/01/23 History duloxetine 20 mg capsule,delayed 20 mg PO QAM 03/22/18 09/01/23 History release (Cymbalta) gabapentin 300 mg capsule 300 mg PO BID 03/22/18 09/01/23 History levothyroxine 50 mcg tablet 50 mcg PO QAM 03/22/18 09/01/23 History nitrofurantoin macrocrystal 25 mg 25 mg PO QAM CHRONIC UTI 03/22/18 09/01/23 History capsule (Macrodantin) simvastatin 20 mg tablet 20 mg PO HS 03/22/18 09/01/23 History tapentadol 150 mg tablet,extended 150 mg PO Q12H 03/22/18 09/01/23 History release,12 hr tapentadol 50 mg tablet 50 mg PO QDL 03/22/18 09/01/23 History triamterene 37.5 1 tab PO QAM 03/22/18 09/01/23 History mg-hydrochlorothiazide 25 mg tablet zonisamide 100 mg capsule 100 mg PO HS 03/22/18 09/01/23 History (Zonegran) cannabidiol (CBD) extract 750 mg/ml sublingual HS 04/10/18 09/01/23 History pantoprazole 20 mg tablet,delayed 20 mg PO BID 04/10/18 09/01/23 History release (Protonix) baclofen 10 mg tablet 10 mg PO TID PRN muscle spasms 10/28/22 09/01/23 History cholecalciferol (vitamin D3) 50 50 mcg PO QAM 10/28/22 09/01/23 History mcg (2,000 unit) capsule (Vitamin D3) cyanocobalamin (vitamin B-12) 1,000 mcg PO QAM 10/28/22 09/01/23 History 1,000 mcg tablet (Vitamin B-12) fluconazole 150 mg tablet 150 mg PO Q7D 10/28/22 09/01/23 History lubiprostone 8 mcg capsule 8 mcg PO BID 10/28/22 09/01/23 History lorazepam 0.5 mg tablet 0.5 mg PO DAILY PRN Anxiety 11/15/22 09/01/23 History acetaminophen 650 mg 650 mg PO Q12H PRN Pain 08/08/23 09/01/23 History tablet,extended release (Tylenol Arthritis Pain) melatonin 1 tab PO HS PRN Sleep 08/08/23 09/01/23 History potassium chloride 20 mEq 20 meq PO DAILY 09/01/23 09/01/23 History tablet,extended release topiramate 50 mg tablet 50 mg PO BID 09/01/23 09/01/23 History Patient History Medical History (Updated 09/01/23 @ 16:17 by Alessia Michel PA-C) Chronic UTI Meniere disease Hx of sepsis admit to [facility] on 11/04/22 for sepsis due to kidney stone; d/c 11/07/22 History of COVID-19 03/2020- nausea, diarrhea, no appetite, headache > resolved (lost 18 lbs) Spring 2020 (home test)- similar symptoms as first time but "not as severe" History of Meniere's disease taking the triamterine-hctz for this IBS (irritable bowel syndrome) Cervicalgia + LUE radiculopathy, hx multiple cervical surgeries Degenerative disc disease Chronic back pain Urinary tract infection Chronic daily abx Kidney stones hx Hiatal hernia GERD (gastroesophageal reflux disease) controlled, stable per pt Hypothyroidism Depression Anxiety Migraine hx Hyperlipidemia Surgical History (Updated 09/01/23 @ 16:17 by Alessia Michel PA-C) S/P cystoscopy with ureteral stent placement 10/2022 @ [facility] Hx of bladder repair surgery bladder tack during [facility]ARY Hx of tubal ligation H/O lithotripsy x2 History of ear surgery Endolymphatic sac reconstruction (Meniere's disease) Nausea and vomiting after administration of anesthetic agent History of section S/P total abdominal hysterectomy Fusion of spine C2-C7, subsequent hardware removal "d/t rejection" H/O cervical discectomy History of repair of rotator cuff Left History of colonoscopy History of esophagogastroduodenoscopy (EGD) History of cholecystectomy Lap Family History Grandfather Family hx of colon cancer Grandmother Family hx of colon cancer Family/Other Family history of esophageal cancer Mother Tongue cancer Social History Smoking Status: Never smoker Second Hand Exposure: Yes (hx growing up); Do You Dip or Chew Tobacco: No; Tobacco Cessation Education Requested by Patient: No Hx Alcohol Use: No Hx Substance Use: Yes (cannabis oil) Preferred Language: Azerbaijani Communication Ability: Effective Nut Cracker Required: No Beliefs That Will Affect Care: None Current Living Situation: Spouse and Family Other Information That Helps Us Care for You: No Feels Safe at Home: Yes Safety Concerns: Feels Safe At This Time Assistive Devices: Cane and Walker Assistive Devices Comment: cane prn Review of Systems Review of Systems: All systems reviewed & are unremarkable except as noted in HPI & below Physical Exam Physical Exam: General: no distress, obese Head: normocephalic, atraumatic Eyes: conjunctiva non-injected, anicteric ENT: normal inspection external ears, nose, mucous membranes moist Neck: supple, trachea midline Lungs: clear, no respiratory distress, no wheezing/rhonchi/rales CV: RRR, no murmur, no pretibial edema Abd: normal BS, soft, non-tender Back: surgical dressing in place. +YURIY drain with serosanguineous drainage Ext: no cyanosis, no calf tenderness, pedal pushes and pulls intact bilaterally, sensation to light touch intact Neuro: +drowsy, but awakens to voice and oriented x 3, normal affect Skin: warm, dry Results & Data Vital Signs (Past 12 Hours) Vital Signs Temp Pulse Pulse Resp BP BP Pulse Ox 09/01/23 13:56 36.4 C L 65 16 109/73 96 09/01/23 13:30 36.5 C 67 18 104/70 93 09/01/23 12:55 36.3 C L 74 16 117/79 94 09/01/23 12:40 36.4 C L 09/01/23 12:30 66 16 114/68 98 09/01/23 12:20 65 15 130/68 100 09/01/23 12:10 71 15 147/83 H 100 09/01/23 12:00 69 13 149/75 H 100 09/01/23 11:50 75 14 137/81 100 09/01/23 11:42 36.1 C L 82 14 148/81 H 100 09/01/23 08:22 36.6 C 69 16 136/74 96 O2 Del Method O2 Flow Rate 09/01/23 13:56 Room Air 09/01/23 13:30 Room Air 09/01/23 12:55 Room Air 09/01/23 12:40 09/01/23 12:30 Nasal Cannula 2 09/01/23 12:20 Nasal Cannula 4 09/01/23 12:10 Oxymask 5 09/01/23 12:00 Oxymask 5 09/01/23 11:50 Oxymask 5 09/01/23 11:42 Oxymask 5 09/01/23 08:22 Room Air
--- OUTSIDE RECORDS SUMMARY | 2023-09-01 15:10 | External Medical Summary | Summary of Care ---
Author Name Unknown Organization [facility] Address [address] [facility] ([facility] [place] [address] Phone [phone] Care Team Providers Care Risk Manager Name Role Phone Garett Jimenes Primary Care Provider + Encounter Details Date Type Department Care Team (Late st Contact Info) Description 08/24/2023 12:30 PM EDT Telemedicine Orthopaedics [facility] [address] [place] [address] Selwyn Hilraio PA-C [address] [place] [address] Pain of right upper arm* Allergies Active Allergy Reactions Criticality Noted Date Comments Aspirin Other (Please comment) 04/10/2017 Stomach burning Oxycodone-Acetaminoph en Edema face/lips/tongue,Hives, Nausea/vomiting High 04/10/2017 documented as of this encounter (statuses as of 08/24/2023) Medications Medication Sig Dispensed Refills Start Date End Date Status triamterene-hctz 37.5-25 mg per tab (,MAXZIDE-25,) 37.5-25 MG per tablet Take 1 Tablet by mouth in the morning. 0 Active Zonisamide 100 MG Oral Capsule Take 1 Capsule by mouth at bedtime. 0 Active celecoxib (CELEBREX) 200 MG Capsule Take 1 Capsule by mouth in the morning. 0 Active DULoxetine (CYMBALTA) 20 MG CPEP Take 1 Capsule by mouth in the morning. 0 Active Gabapentin 300 MG Oral Capsule Take 1 Capsule by mouth in the morning and 1 Capsule in the evening. 0 Active hydrOXYzine HCl 25 MG tablet Take 1 Tablet by mouth 2 times a day as needed for Anxiety. 0 Active levothyroxine (LEVOXYL) 50 MCG Tablet Take 1 Tablet by mouth daily first thing in the morning. 0 Active Simvastatin 20 MG Oral Tablet Take 1 Tablet by mouth at bedtime. 0 Active NUCYNTA ER 150 MG TB12 Take 150 mg by mouth every 12 hours. 0 06/16/2017 Active NUCYNTA 50 MG Tablet Take 1 Tablet by mouth every 12 hours as needed for Pain, Severe. 0 06/16/2017 Active LORAzepam (ATIVAN) 0.5 MG Tablet Take 1 Tablet by mouth every 6 hours as needed for Anxiety. 0 Active Topiramate (TOPAMAX) 50 MG Tablet Take 1 Tablet by mouth in the morning. 1 12/15/2017 Active dicyclomine (BENTYL) 10 MG CapsuleIndications: Abdominal pain, RUQ (right upper quadrant) TAKE 1 CAPSULE BY MOUTH 2 TIMES A DAY 180 Cap 0 12/25/2018 Active amitriptyline (ELAVIL) 50 MG Tablet Take 1 Tablet by mouth daily as needed. 0 Active Cholecalciferol (VITAMIN D3) 125 MCG (5000 UT) Tablet Take by mouth 2,000 Units . 0 Active Potassium Chloride Rosalia ER 20 MEQ Oral Tablet Extended Release Take 2 Tablets by mouth in the morning. 0 09/03/2021 Active Baclofen 10 MG Oral Tablet (Lioresal) TAKE 1 TABLET BY MOUTH UP to 3 TIMES A DAY NEEDED 0 08/05/2021 Active Fluconazole 150 MG Oral Tablet (Diflucan) 1 by mouth weekly for 6 months 0 09/03/2021 Active B-12 1000 MCG Oral Tablet Take by mouth . 0 Active PNV-Ridgely 28-0.6-0.4-340 MG Oral Capsule Take by mouth . 0 Active Garlic 1000 MG Oral Capsule Take 1 Capsule by mouth in the morning. 0 Active Melatonin 10 MG Oral Tablet Take 1 Tablet by mouth at bedtime. 0 Active Pantoprazole Sodium 40 MG Oral Tablet Delayed Release (Protonix) Take by mouth 1 Tablet in the morning AND 1 Tablet before bedtime. 60 Tablet 3 03/29/2022 Active Acetaminophen ER 650 MG Oral Tablet Extended Release Take 1 Tablet by mouth every 8 hours as needed. 0 Active Loperamide HCl 2 MG Oral Tablet Take 1 Tablet by mouth 4 times a day as needed for Diarrhea. 0 Active traMADol HCl 50 MG Oral Tablet Take 1 Tablet by mouth every 6 hours as needed for Pain, Severe. 24 Tablet 0 08/15/2022 Active Align Prebiotic-Probiotic 5-1.25 MG-GM Oral Tablet Chewable Take by mouth. 0 Activ e Lidocaine 5 % External Patch (Lidoderm) Place 1 Patch topically on the skin daily. 30 Patch 0 08/20/2022 Active Ascorbic Acid 1000 MG Oral Tablet 0 Active Cephalexin 500 MG Oral Capsule (Keflex) 1 Capsule. 0 11/11/2022 Active traMADol HCl 50 MG Oral Tablet (Ultram)Indications :Closed displaced spiral fracture of shaft of right humerus, initial encounter Take 1 Tablet by mouth every 12 hours as needed for Pain, Severe. Okay to take 1/2 tab every 12 hours as needed for pain 10 Tablet 0 12/20/2022 Active predniSONE 20 MG Oral Tablet (Deltasone)Indicati ons:Pain of right upper arm Take 1 Tablet by mouth in the morning. in the morning with food.. 7 Tablet 0 03/07/2023 Active Lubiprostone 8 MCG Oral Capsule (Amitiza) Take 1 Capsule by mouth 2 times a day with morning and evening meals. 180 Capsule 3 03/20/2023 Active documented as of this encounter (statuses as of 08/24/2023) Active Problems Problem Noted Date Diagnosed Date Complicated UTI (urinary tract infection) 2022 Severe sepsis with acute organ dysfunction 11/04 Hydroureteronephrosis 11/04/2022 Kidney stone on left side 11/04/2022 Essential hypertension 11/04/2022 Acute low back pain with right-sided sciatica Chronic pain syndrome 08/17/2022 GERD (gastroesophageal reflux disease) Hypothyroidism 08/17/2022 Abdominal pain, RUQ (right upper quadrant) 04/10 documented as of this encounter (statuses as of 08/24/2023) Immunizations Name Administration Dates Next Due Pneumococcal Conjugate Vacci ne, 20-valent ([id number]) 11/07/2022(Deferred: Patient Refused - Pt does not want this vaccine) Seasonal Influenza, Mary shen, No Preserve, IM 03/29/2022 documented as of this encounter Social History Tobacco Use Types Packs/Day Years Used Date Smoking Tobacco: Never Smokeless Tobacco: Never Alcohol Use Standard Drinks/Week Comments No 0 (1 standard drink = 0.6 oz pur e alcohol) Sex and Gender Information Value Date Recorded Sex Assigned at Not on file Gender Identity Not on file Sexual Orientation Not on file Job Start Date Occupation Industry Not on file Not on file Not on file documented as of this encounter Functional Status Functional Status Response Date of Assess ment Are you deaf or do you have serious difficulty h earing? No 11/04/2022 Are you blind or do you have serious difficulty seeing, even when wearing glasses? No 11/04/2022 Do you have serious difficul ty walking or climbing stairs? (5 years old or older) No 11/04/2022 Do you have difficulty dress ing or bathing? (5 years old or older) No 11/04/2022 Because of a physical, menta l, or emotional condition, do you have difficulty doing errands alone such as visiting a doctor s office or shopping? (15 years old or older) No 11/05/19 Cognitive Status Response Date of Assessm ent Because of a physical, menta l, or emotional condition, do you have serious difficulty concentrating, remembering, or making decisions? (5 years old or older) No 11/04/2022 documented as of this encounter Progress Notes * Selwyn Hilario PA-C - 08/24/2023 11:10 AM EDT ORTHOPAEDIC SURGERY - Telephonic Note After connecting to the patient via telephone, the patient was identified by name and date of . Patient was then informed that this was a telephone call only visit. The patient agreed to participate. Visit Disposition: Routine follow-up Total call duration was 5 minutes. SUBJECTIVE: China Santamaria is a 68 year old female. No chief complaint on file. HPI: China is a very pleasant 68-year-old female who presents via telephonic visit today to discuss right upper arm symptoms roughly 9 months removed from an injury resulting in a right humerus fracture. Patient had previously experienced drastic improvement in her adhesive capsulitis symptoms with PT, unfortunately she was experiencing some pain over the anterior aspect of her fracture site. Reduction in her physical therapy and exacerbating factors was recommended, and patient states that since that time her symptoms have significantly improved. She reports pain is greatly decreased, and that she is able to go without her topical treatment she was previously employing. She is quite pleasedwith her symptom relief at this point. No other issues reported. Review of Systems: Constitutional ROS: No fevers, sweats, or chills Cardiovascular ROS: No chest pain Gastrointestinal ROS: No abdominal pain Musculoskeletal/Extremities ROS: Trace right upper arm pain. Neurologic ROS: No numbness or tingling Review of patient's allergies indicates: Allergen Reactions Percocet [Oxycodone-Acetaminophen] Edema face/lips/tongue, Hives and Nausea/vomiting Aspirin Other (Please comment) Stomach burning Current Outpatient Medications Medication Sig Dispense Refill triamterene-hctz 37.5-25 mg per tab (,MAXZIDE-25,) 37.5-25 MG per tablet Take 1 Tablet by mouth in the morning. Zonisamide 100 MG Oral Capsule Take 1 Capsule by mouth at bedtime. celecoxib (CELEBREX) 200 MG Capsule Take 1 Capsule by mouth in the morning. DULoxetine (CYMBALTA) 20 MG CPEP Take 1 Capsule by mouth in the morning. Gabapentin 300 MG Oral Capsule Take 1 Capsule by mouth in the morning and 1 Capsule in the evening. hydrOXYzine HCl 25 MG tablet Take 1 Tablet by mouth 2 times a day as needed for Anxiety. levothyroxine (LEVOXYL) 50 MCG Tablet Take 1 Tablet by mouth daily first thing in the morning. Simvastatin 20 MG Oral Tablet Take 1 Tablet by mouth at bedtime. NUCYNTA ER 150 MG TB12 Take 150 mg by mouth every 12 hours. 0 NUCYNTA 50 MG Tablet Take 1 Tablet by mouth every 12 hours as needed for Pain, Severe. 0 LORAzepam (ATIVAN) 0.5 MG Tablet Take 1 Tablet by mouth every 6 hours as needed for Anxiety. Topiramate (TOPAMAX) 50 MG Tablet Take 1 Tablet by mouth in the morning. 1 dicyclomine (BENTYL) 10 MG Capsule TAKE 1 CAPSULE BY MOUTH 2 TIMES A DAY 180 Cap 0 amitriptyline (ELAVIL) 50 MG Tablet Take 1 Tablet by mouth daily as needed. Cholecalciferol (VITAMIN D3) 125 MCG (5000 UT) Tablet Take by mouth 2,000 Units . Potassium Chloride Rosalia ER 20 MEQ Oral Tablet Extended Release Take 2 Tablets by mouth in the morning. Baclofen 10 MG Oral Tablet (Lioresal) TAKE 1 TABLET BY MOUTH UP to 3 TIMES A DAY NEEDED Fluconazole 150 MG Oral Tablet (Diflucan) 1 by mouth weekly for 6 months B-12 1000 MCG Oral Tablet Take by mouth . PNV-Ridgely 28-0.6-0.4-340 MG Oral Capsule Take by mouth . Garlic 1000 MG Oral Capsule Take 1 Capsule by mouth in the morning. Melatonin 10 MG Oral Tablet Take 1 Tablet by mouth at bedtime. Pantoprazole Sodium 40 MG Oral Tablet Delayed Release (Protonix) Take by mouth 1 Tablet in the morning AND 1 Tablet before bedtime. 60 Tablet 3 Acetaminophen ER 650 MG Oral Tablet Extended Release Take 1 Tablet by mouth every 8 hours as needed. Loperamide HCl 2 MG Oral Tablet Take 1 Tablet by mouth 4 times a day as needed for Diarrhea. traMADol HCl 50 MG Oral Tablet Take 1 Tablet by mouth every 6 hours as needed for Pain, Severe. 24 Tablet 0 Align Prebiotic-Probiotic 5-1.25 MG-GM Oral Tablet Chewable Take by mouth. Lidocaine 5 % External Patch (Lidoderm) Place 1 Patch topically on the skin daily. 30 Patch 0 Ascorbic Acid 1000 MG Oral Tablet Cephalexin 500 MG Oral Capsule (Keflex) 1 Capsule. traMADol HCl 50 MG Oral Tablet (Ultram) Take 1 Tablet by mouth every 12 hours as needed for Pain, Severe. Okay to take 1/2 tab every 12 hours as needed for pain 10 Tablet 0 predniSONE 20 MG Oral Tablet (Deltasone) Take 1 Tablet by mouth in the morning. in the morning withfood.. 7 Tablet 0 Lubiprostone 8 MCG Oral Capsule (Amitiza) Take 1 Capsule by mouth 2 times a day with morning and evening meals. 180 Capsule 3 No current facility-administered medications for this visit. Patient Active Problem List Diagnosis Code Abdominal pain, RUQ (right upper quadrant) R10.11 Acute low back pain with right-sided sciatica M54.41 Chronic pain syndrome G89.4 GERD (gastroesophageal reflux disease) K21.9 Hypothyroidism E03.9 Complicated UTI (urinary tract infection) N39.0 Severe sepsis with acute organ dysfunction (HCC) A41.9, R65.20 Hydroureteronephrosis N13.30 Kidney stone on left side N20.0 Essential hypertension I10 Past Medical History: Diagnosis Date Acid reflux Chronic back pain High cholesterol Hypothyroid Meniere disease Past Surgical History: Procedure Laterality Date DELIVERY 1980 COLONOSCOPY, DIAGNOSTIC (RECTUM) 06/16/2022 internal hemorrhoids/biopsies show tubulovillous adenoma/recall 3 years/COLONOSCOPY FLEXIBLE PROXIMAL DIAGNOSTIC performed by Wilfredo Curtis DO at ENDOSCOPY [facility] CYSTOSCOPY/INSERTION OF STENT Left 11/04/2022 CYSTOURETHROSCOPY WITH INSERTION URETERAL STENT performed by Jaswant Rosas MD at OR [facility] EGD, FLEXIBLE, DIAGNOSTIC N/A 01/09/2018 cueva's esophagus/recall 3 years/ESOPHAGOGASTRODUODENOSCOPY (EGD), FLEXIBLE, TRANSORAL, DIAGNOSTIC performed by Wilfredo Curtis DO at ENDOSCOPY [facility] EGD, FLEXIBLE, DIAGNOSTIC 06/16/2022 small hiatal hernia/gastritis/biopsies normal/ESOPHAGOGASTRODUODENOSCOPY (EGD), FLEXIBLE, TRANSORAL, DIAGNOSTIC performed by Wilfredo Curtis DO at ENDOSCOPY [facility] EGD, W/ENDOSCOPIC US N/A 01/09/2018 mild inflammation of stomach/biopsy confirm Barretts esophagus/recall 3 years/ESOPHAGOGASTRODUODENOSCOPY (EGD), FLEXIBLE, TRANSORAL, ENDOSCOPIC ULTRASOUND performed by Wilfredo Curtis DO at ENDOSCOPY [facility] EGD, W/ENDOSCOPIC US N/A 10/20/2022 sludge CBD/fatty liver/hiatal hernia/non-bleeding duodenal diverticulujm/biopsies normal/ESOPHAGOGASTRODUODENOSCOPY (EGD), FLEXIBLE, TRANSORAL, ENDOSCOPIC ULTRASOUND performed by Wilfredo Curtis DO at OR [facility] ERCP W/ STENT EXCHANGE N/A 07/06/2017 one occluded stent from biliary tree seen in major papilla/biliary papillary stenosis, benign/entire main bile duct dilated/1 stent removed from biliary tree/ENDOSCOPIC RETROGRADE CHOLANGIOPANCREATOGRAPHY (ERCP) W/STENT REMOVAL AND EXCHANGE; INC DILATION, GUIDE WIRE AND SPHINCTEROTOMY performed by Wilfredo Curtis DO at [facility] ERCP, DIAGNOSTIC, SPECIMEN COLLECTION N/A 04/11/2017 biliary papillary stenosis/segmental biliary stricture/entire main bile duct dilated/1 biliary stent placed in CBD/1 pancreatic stent placed in ventral pancreatic duct/repeat ERCP 6 wks/ENDOSCOPIC RETROGRADE CHOLANGIOPANCREATOGRAPHY (ERCP) DIAGNOSTIC performed by Wilfredo Curtis DO at OR [facility] ERCP, DIAGNOSTIC, SPECIMEN COLLECTION N/A 01/11/2018 bubbles found in biliary tract/biliary tree swept and small amount of sludge found/ENDOSCOPIC RETROGRADE CHOLANGIOPANCREATOGRAPHY (ERCP) DIAGNOSTIC performed by Wilfredo Curtis DO at OR [facility] ERCP, DIAGNOSTIC, SPECIMEN COLLECTION N/A 10/20/2022 entire main duct moderately dilated/sludge biliary tree/ENDOSCOPIC RETROGRADE CHOLANGIOPANCREATOGRAPHY (ERCP) DIAGNOSTIC performed by Wilfredo Curtis DO at OR [facility] LAP;W/HYSTERECTOMY 1989 heavy bleeding LAPAROSCOPY; CHOLECYSTECTOMY N/A 04/12/2017 LAPAROSCOPIC CHOLECYSTECTOMY performed by Yamilet Call DO at OR [facility] OTHER several cervical spine surgeries SHOULDER SURGERY PROCEDURE NEC Left Social History Tobacco Use Smoking status: Never Smokeless tobacco: Never Vaping Use Vaping Use: Never used Substance Use Topics Alcohol use: No Drug use: No Family history: Noncontributory OBJECTIVE: Diagnostic Testing: None today Vital Signs: Unable to obtain There were no vitals taken for this visit. Physical Exam: Unable to obtain ASSESSMENT: Pain of right upper arm (Primary) Follow Up: Return if symptoms worsen or fail to improve. PLAN: We discussed her significant improvement in her upper arm symptoms with reduction in offending activities likely due to some aspect of her physical therapy regimen. She has maintained some of the stretching and other beneficial modalities she learned at physical therapy, however has discontinued performing the most exacerbating activities. Given her drastic improvement in symptoms, I recommended continuation of her activity level with progression only as tolerated and as is comfortable. Patientmay follow up p.r.n. from this 0.4 any continuing issues with the right upper arm. Patient was certainly urged to contact clinic otherwise with any questions, concerns, or worsening of symptoms. Patient is comfortable with the plan, is again quite pleased with her symptom relief, and all questions were answered. This chart was completed in part utilizing [employer] Speech Voice Recognition Software. Grammatical errors, random word insertions, pronoun errors, and incomplete sentences are an occasional consequence of this system due to software limitations, ambient noise, and hardware issues. Any formal questions or concerns about the content, text, or information contained within the body of this dictation should be directly addressed to the provider for clarification. Selwyn Hilario PA-C 08/24/2023 11:10 AM documented in this encounter Plan of Treatment Scheduled Procedures Name Priority Associated Diagnoses Date/Ti me COLONOSCOPY FLEXIBLE PROXIMA L DIAGNOSTIC Recall History of colonic polyps Health Maintenance Due Date Last Done Comments DXA Scan 1957 Lipid Panel 1957 Depression Screening 1969 Albumin/Creatinine Ratio 1975 Hepatitis C Screening 1975 DTaP,Tdap,and Td Vaccines (1 - Tdap) 01/20/1976 Mammogram 04/14/2016 04/14/2015 Zoster Vaccines (2 of 3) 06/02/2016 04/07/2016 Pneumococcal Vaccine: 65+ Years (1 of 1 - PCV) 2022 COVID-19 Vaccine (1 - 2022- season) 2023 Influenza Vaccine (FLU shot) (#1) 2023 03/29/2022, 03/07/2018, 03/10/2014 TSH 08/18/2023 08/17/2022, 09/25/2021 GFR 11/22/2023 11/21/2022, 10/27, 11/06/2022, Additional history exists COLONOSCOPY-EVERY 3 YRS AGES 18-100 06/16/2025 06/16/2022, 06/16/2022 Diabetes Screening 11/21/2025 11/21/2022, 0 11/07/2022, 11/06/2022, Additional history exists Colonoscopy Discontinued 06/16/2022, 06/16/2022 Colorectal Cancer Screening Discontinued Cologuard Discontinued Fecal Occult Blood Test Discontinued GARDASIL-HPV IMMUNIZATION SERIES Aged Out No longer eligible based on patient's age to complete this topic Hepatitis B Aged Out No longer eligi ble based on patient's age to complete this topic MENINGOCOCCAL (MENACTRA/MENVEO) Aged Out No longer eligible based on patient's age to complete this topic Sigmoidoscopy Discontinued documented as of this encounter Medical Devices Implanted Type Area Entry Level Marketing Representative Device Identifier Shelf Expiration Date Model / Serial / Lot Clip Quick 2.8mm 230cm - [id number] Implanted:Qty: 1 on 06/16/2022 by Wilfredo Curtis DO at ENDOSCOPY [facility] Colon [employer] 05/28/2024 [id number] / [id number] documented as of this encounter Visit Diagnoses Diagnosis Pain of right upper arm- Primary Pain in limb documented in this encounter Advance Directives Latest Code Status on File Code Status Date Activated Date Inactivated Comments Full Code 11/04/2022 3:00 PM 11/07/2022 2:31 PM This o rder reflects the patients wishes and were consensually agreed upon. Question Answer Comments Discussion of Advance Directives occurred with: Patient Code Status History Code Status Date Activated Date Inactivated Comments Full Code 10/20/2022 2:03 PM 10/20/2022 7:19 PM This order reflects the patients wishes and were consensually agreed upon. Question Answer Comments Discussion of Advance Directives occurred with: Not Discussed due to patient's condition Full Code 08/17/2022 8:02 PM 08/20/2022 5:31 PM This order reflects the patients wishes and were consensually agreed upon. Question Answer Comments Discussion of Advance Directives occurred with: Patient Full Code 01/11/2018 1:34 PM 01/11/2018 7:46 PM This order reflects the patients wishes and were consensually agreed upon. Question Answer Comments Discussion of Advance Directives occurred with: Not Discussed Full Code 07/06/2017 10:53 AM 07/06/2017 5:43 PM This o rder reflects the patients wishes and were consensually agreed upon. Question Answer Comments Discussion of Advance Directives occurred with: Not Discussed Care Teams Risk Manager Relationship Specialty Start Date End Date Garett Jimenes DO [address] [facility] [place] [address] PCP - General Family Medicine 04/11/17 documented as of this encounter
--- OUTSIDE RECORDS SUMMARY | 2023-09-01 15:10 | External Medical Summary | Summary of Care ---
Author Name Unknown Organization [facility] Address [address] [facility] [place] [address] Phone [phone] Care Team Providers Care Hat Model Name Role Phone Garett Jimenes Primary Care Provider + Reason for Visit * Reason Onset Date Comments FYI 08/16/2023 Encounter Details Date Type Department Care Team (Late st Contact Info) Description 08/16/[address], [place] [address] [place] [id number] [place], [address] [place] [address] FY Allergies Active Allergy Reactions Criticality Noted Date Comments Aspirin Other (Please comment) 04/10/2017 Stomach burning Oxycodone-Acetaminoph en Edema face/lips/tongue,Hives, Nausea/vomiting High 04/10/2017 documented as of this encounter (statuses as of 08/16/2023) Medications Medication Sig Dispensed Refills Start Date [...] Tablet Take by mouth . 0 Active PNV-Buena 28-0.6-0.4-340 MG Oral Capsule Take by mouth [...] as of this encounter (statuses as of 08/16/2023) Active Problems Problem Noted Date Diagnosed Date Complicated UTI (urinary tract infection) 2022 Severe sepsis with acute organ dysfunction 11/04 Hydroureteronephrosis 11/04/2022 Kidney stone on left side 11/04/2022 Essential hypertension 11/04/2022 Acute low back pain with right-sided sciatica Chronic pain syndrome 08/17/2022 GERD (gastroesophageal reflux disease) Hypothyroidism 08/17/2022 Abdominal pain, RUQ (right upper quadrant) 04/10 documented as of this encounter (statuses as of 08/16/2023) Immunizations Name Administration Dates Next Due Pneumococcal Conjugate Vacci ne, 20-valent ([id number]) 11/07/2022(Deferred: Patient Refused - Pt does not want this vaccine) Seasonal Influenza, Quadriva torrest, No Preserve, IM 03/29/2022 documented as of [...] No 11/04/2022 documented as of this encounter Miscellaneous Notes * Telephone Encounter - Yasmeen Lynne OSA - 08/16/2023 2:03 PM EDT Called patient to tell her that the form is done and the office mailed the hard copy to patient. documented in this encounter Plan of Treatment Upcoming Encounters Date Type Department Care Team (Late st Contact Info) Description 08/24/2023 12:30 PM EDT Telemedicine Orthopaedics [facility] [address] [facility] [place] [address] Selwyn Hilario PA-C [address] [place] [address] Scheduled Procedures Name Priority Associated Diagnoses Date/Ti [...] this encounter Medical Devices Implanted Type Area Maintenance Technician 2Nd Shift Device Identifier Shelf Expiration Date Model / Serial / Lot Clip Quick 2.8mm 230cm - [id number] Implanted:Qty: 1 on 06/16/2022 by Wilfredo Curtis DO at ENDOSCOPY [facility] Colon [employer] 05/28/2024 [id number] / [id number] documented as of this encounter Advance Directives Latest Code Status [...] Directives occurred with: Not Discussed Care Teams Hat Model Relationship Specialty Start Date End Date Garett Jimenes DO [address] [facility] [place] [address] PCP - General Family Medicine 04/11/17 documented as of this encounter
[2023-09-01] MEDS: LACTATED RINGER'S 1,000 ML IV SCH (15:27)
[2023-09-01] MEDS: TAPENTADOL HCL 50 MG TAB PO SCH (16:04)
[2023-09-01] MEDS: TAPENTADOL HCL ER 50 MG TABCR PO SCH (18:16)
[2023-09-01] MEDS: traMADol HCL 50 MG TABLET PO PRN (19:45)
[2023-09-01] MEDS ORDERED: CANNABIDIOL SL SCH (21:00)
[2023-09-01] MEDS: SIMVASTATIN 20 MG TAB PO SCH (21:05)
[2023-09-01] MEDS: TOPIRAMATE 50 MG TAB PO SCH (21:05)
[2023-09-01] MEDS: PANTOprazole 40 MG TAB PO SCH (21:05)
[2023-09-01] MEDS: DICYCLOMINE HCL 10 MG CAP PO SCH (21:06)
[2023-09-01] MEDS: ZONISAMIDE 100 MG CAPSULE PO SCH (21:06)
[2023-09-01] MEDS: LUBIPROSTONE 8 MCG CAP PO SCH (21:06)
[2023-09-01] MEDS: DOCUSATE SODIUM/SENNA 50/8.6MG TAB PO SCH (21:07)
[2023-09-02] MEDS: POLYETHYLENE (MIRALAX) 17 GM PACK PO SCH (05:56)
[2023-09-02] MEDS: LEVOTHYROXINE SODIUM 50 MCG TABLET PO SCH (05:56)
--- NOTE | 2023-09-02 07:37 | Hospitalist Progress Note ---
Date of Service September 02, 2023 Assessment & Plan (1) S/P spinal surgery: (2) Neurogenic claudication due to lumbar spinal stenosis: (3) Meniere disease: (4) Hyperlipidemia: (5) Chronic pain: (6) IBS (irritable bowel syndrome): (7) Hypothyroidism: (8) Depression: (9) Anxiety: (10) Migraine: (11) GERD (gastroesophageal reflux disease): (12) Chronic UTI: Plan Patient is a 68-year-old female with PMHx significant for dyslipidemia, Mnire's disease, history of migraine headache, GERD, chronic UTI, hypothyroidism, depression, anxiety, IBS, chronic pain, DDD who was seen in medical consultation s/p decompression and fusion L3-L5 today by ortho/spine. Neurogenic claudication due to lumbar spinal stenosis Post op day# 1 s/p decompression and fusion L3-L5 by Dr Britany ROBERTSON#100ml Pain management per ortho Wound management per ortho PT/OT as appropriate DVT prophylaxis per ortho Incentive spirometry Monitor H&H for acute blood loss anemia, pre-op Hgb: 15, currently stable HTN Holding home HCTZ/Triamterene as BP on lower end Resume as able Hyperlipidemia Continue simvastatin Chronic pain History of chronic neck and back pain On gabapentin, CBD extract and Nucynta CBD held Gabapentin and Nucynta continued by orthospine IBS (irritable bowel syndrome) Continue to dicyclomine, lubiprostone Hypothyroidism Continue levothyroxine Depression Anxiety Continue duloxetine Migraine History migraine headache Denies current headache Continue topiramate GERD (gastroesophageal reflux disease) Continue PPI Chronic UTI On chronic suppression with nitrofurantoin Diet: Advance as tolerated DVT Prophylaxis: per primary Disposition per primary service Thank you for this consultation. We will follow the patient with you during their hospital stay. You can [facility] a [facility] via [employer] Admission and Anticipated Discharge Date Admission Date: September 01, 2023 Subjective pt seen while laying in bed. Denied acute concerns. Review of Systems Review of Systems: All systems reviewed & are unremarkable except as noted in Subjective Physical Exam Physical Exam: General: Alert, oriented. No acute distress Skin: No noted rashes or bruises Psych: Appropriate mood and affect Neuro: difficulty with movements in the bed HEENT: NC/AT Chest: Nontender to palpation. CV: RRR Resp: Breath sounds clear bilaterally, no increased effort of breathing. Abdomen: Soft, nontender, nondistended Extremities: SCDs on lower extremities bilaterally. Results & Data Results & Data Vital Signs (Past 12 Hours) Vital Signs Temp Pulse Resp BP Pulse Ox O2 Del Method 09/02/23 07:13 36.5 C 66 16 109/70 98 Room Air 09/02/23 03:07 36.7 C 72 18 110/72 94 Room Air 09/01/23 22:54 36.5 C 69 18 110/72 96 Room Air 09/01/23 19:38 36.3 C L 74 16 134/75 95 Room Air
[2023-09-02 07:48] LABS: BUN Creatinine Ratio 26.2 (10-20); Calcium 8.5 mg/dl (8.6-10.3); Creatinine Clr Calc Pharmacy 85.3 ml/min; Est GFR (African American) 107.2 ml/min; Est GFR (Non-African American) 92.5 ml/min; Potassium 3.2 mmol/L (3.5-5.1)
[2023-09-02 07:54] LABS: Basophils # (auto) 0.01 K/uL (0.00-0.20); Basophils % (auto) 0.1 %; Hematocrit (blood only) 34.9 % (37.0-47.0); Hemoglobin 11.5 g/dl (12.0-16.0); Immature Granulocytes # (auto) 0.04 K/uL (0.01-0.20); Immature Granulocytes % (auto) 0.4 %; Lymphocytes # (auto) 1.39 K/uL (1.20-3.40); Lymphocytes % (auto) 14.9 %; Mean Corpuscular Hemoglobin 30.7 pg (25.0-34.0); Mean Corpuscular Volume 93.3 fL (80.0-100.0); Mean Platelet Volume 10.1 fL (9.4-12.4); Monocytes # (auto) 0.62 K/uL (0.11-0.59); Monocytes % (auto) 6.6 %; Neutrophils # (auto) 7.28 K/uL (1.40-6.50); Platelet Count 199 K/uL (130-400); RDW Standard Deviation 44.2 fL (36.4-46.3); Red Blood Count 3.74 M/uL (4.20-5.40); White Blood Count 9.34 K/ul (4.8-10.8)
[2023-09-02] MEDS: POTASSIUM CHLORIDE CRTAB 20 MEQ TABCR PO SCH (08:16)
[2023-09-02] MEDS: DULoxetine HCL 20 MG CAP PO SCH (08:16)
[2023-09-02] MEDS: CHOLECALCIFEROL 25 MCG (1000 UNITS) TAB PO SCH (08:16)
[2023-09-02] MEDS: CYANOCOBALAMIN (B-12) 500 MCG TABLET PO SCH (08:16)
[2023-09-02] MEDS: dexAMETHasone 6 MG in SYRINGE 0 ML IV SCH (08:21)
[2023-09-02] MEDS ORDERED: TRIAMTERENE/HCTZ 37.5/25MG TAB PO SCH (09:00)
--- NOTE | 2023-09-02 09:43 | Orthopedic Progress Note ---
Date of Service September 02, 2023 Assessment & Plan (1) Neurogenic claudication due to lumbar spinal stenosis: Plan: This time initiate physical therapy monitor YURIY operatively discharge home the next few days. Admission and Anticipated Discharge Date Admission Date: September 01, 2023 Subjective Back pain controlled leg pain improved Physical Exam Physical Exam: Patient is up and ambulating. Results & Data Vital Signs (Past 12 Hours) Vital Signs Temp Pulse Resp BP Pulse Ox O2 Del Method 09/02/23 07:13 36.5 C 66 16 109/70 98 Room Air 09/02/23 03:07 36.7 C 72 18 110/72 94 Room Air 09/01/23 22:54 36.5 C 69 18 110/72 96 Room Air Queries Orthopedic Spine Obesity: Yes
[2023-09-02] MEDS: POTASSIUM CHLORIDE CRTAB 20 MEQ TABCR PO STA (10:36)
[2023-09-02] MEDS: MELATONIN 3 MG TAB PO PRN (21:59)
[2023-09-03 06:57] LABS: Basophils # (auto) 0.01 K/uL (0.00-0.20); Basophils % (auto) 0.1 %; Eosinophils # (auto) 0.02 K/uL (0.00-0.50); Eosinophils % (auto) 0.2 %; Hematocrit (blood only) 35.9 % (37.0-47.0); Hemoglobin 11.1 g/dl (12.0-16.0); Immature Granulocytes # (auto) 0.08 K/uL (0.01-0.20); Immature Granulocytes % (auto) 0.9 %; Lymphocytes # (auto) 1.88 K/uL (1.20-3.40); Lymphocytes % (auto) 21.5 %; Mean Corpuscular Hemoglobin 29.9 pg (25.0-34.0); Mean Corpuscular Hgb Conc 30.9 g/dL (32.0-36.0); Mean Corpuscular Volume 96.8 fL (80.0-100.0); Monocytes # (auto) 0.77 K/uL (0.11-0.59); Monocytes % (auto) 8.8 %; Neutrophils % (auto) 68.5 %; Platelet Count 185 K/uL (130-400); RDW Coefficient of Variation 13.3 % (11.5-14.5); RDW Standard Deviation 47.8 fL (36.4-46.3); Red Blood Count 3.71 M/uL (4.20-5.40); White Blood Count 8.76 K/ul (4.8-10.8)
[2023-09-03 07:19] LABS: BUN Creatinine Ratio 36.2 (10-20); Calcium 8.7 mg/dl (8.6-10.3); Creatinine Clr Calc Pharmacy 95.6 ml/min; Est GFR (African American) 111.3 ml/min; Est GFR (Non-African American) 96.1 ml/min; Potassium 4.1 mmol/L (3.5-5.1)
[2023-09-03] MEDS ORDERED: POTASSIUM PHOS 3 MMOL/1 ML INFUSION IV STA (07:57)
[2023-09-03] MEDS: FLUCONAZOLE 50 MG TAB PO SCH (10:05)
[2023-09-03] MEDS: POTASSIUM PHOSPHATE 21 MMOL in SODIUM CHLORIDE 0.9% 500 ML IV ONE (10:34)
--- NOTE | 2023-09-03 10:44 | Orthopedic Progress Note ---
Date of Service September 03, 2023 Assessment & Plan (1) Neurogenic claudication due to lumbar spinal stenosis: Plan: This time continue physical therapy monitor YURIY output anticipate discharge home early next week and possibly to rehab. Admission and Anticipated Discharge Date Admission Date: September 01, 2023 Subjective Back pain is controlled leg pain markedly improved Physical Exam Physical Exam: Patient is up and ambulating. Dressings in place. YURIY drain functioning. Good strength testing. Results & Data Vital Signs (Past 12 Hours) Vital Signs Temp Pulse Resp BP Pulse Ox O2 Del Method 09/03/23 09:11 36.3 C L 72 15 110/69 98 Room Air Queries Orthopedic Spine Obesity: Yes
--- NOTE | 2023-09-03 12:59 | Hospitalist Progress Note ---
Date of Service September 03, 2023 Assessment & Plan (1) S/P spinal surgery: (2) Neurogenic claudication due to lumbar spinal stenosis: (3) Meniere disease: (4) Hyperlipidemia: (5) Chronic pain: (6) IBS (irritable bowel syndrome): (7) Hypothyroidism: (8) Depression: (9) Anxiety: (10) Migraine: (11) GERD (gastroesophageal reflux disease): (12) Chronic UTI: Plan Patient is a 68-year-old female with PMHx significant for dyslipidemia, Mnire's disease, history of migraine headache, GERD, chronic UTI, hypothyroidism, depression, anxiety, IBS, chronic pain, DDD who was seen in medical consultation s/p decompression and fusion L3-L5 today by ortho/spine. Neurogenic claudication due to lumbar spinal stenosis Post op day# 1 s/p decompression and fusion L3-L5 by Dr Britany ROBERTSON#100ml Pain management per ortho Wound management per ortho PT/OT as appropriate DVT prophylaxis per ortho Incentive spirometry Monitor H&H for acute blood loss anemia, pre-op Hgb: 15, currently stable HTN Holding home HCTZ/Triamterene as BP on lower end Resume as able Hyperlipidemia Continue simvastatin Chronic pain History of chronic neck and back pain On gabapentin, CBD extract and Nucynta CBD held Gabapentin and Nucynta continued by orthospine IBS (irritable bowel syndrome) Continue to dicyclomine, lubiprostone Hypothyroidism Continue levothyroxine Depression Anxiety Continue duloxetine Migraine History migraine headache Denies current headache Continue topiramate GERD (gastroesophageal reflux disease) Continue PPI Chronic UTI On chronic suppression with nitrofurantoin Diet: Advance as tolerated DVT Prophylaxis: per primary Disposition per primary service Thank you for this consultation. We will follow the patient with you during their hospital stay. You can reach a [facility] of [facility] via [employer] Admission and Anticipated Discharge Date Admission Date: September 01, 2023 Subjective pt seen sitting in chair at bedside. States she would like to go to acute rehab. Review of Systems Review of Systems: All systems reviewed & are unremarkable except as noted in Subjective Physical Exam Physical Exam: General: Alert, oriented. No acute distress Skin: No noted rashes or bruises Psych: Appropriate mood and affect Neuro: difficulty with movements in the bed HEENT: NC/AT Chest: Nontender to palpation. CV: RRR Resp: Breath sounds clear bilaterally, no increased effort of breathing. Abdomen: Soft, nontender, nondistended Extremities: SCDs on lower extremities bilaterally. Results & Data Results & Data Vital Signs (Past 12 Hours) Vital Signs Temp Pulse Resp BP Pulse Ox O2 Del Method 09/03/23 09:11 36.3 C L 72 15 110/69 98 Room Air
[2023-09-04 06:52] LABS: Basophils # (auto) 0.01 K/uL (0.00-0.20); Basophils % (auto) 0.1 %; Hematocrit (blood only) 35.5 % (37.0-47.0); Hemoglobin 11.4 g/dl (12.0-16.0); Immature Granulocytes % (auto) 1.2 %; Lymphocytes # (auto) 1.58 K/uL (1.20-3.40); Lymphocytes % (auto) 18.9 %; Mean Corpuscular Hemoglobin 30.6 pg (25.0-34.0); Mean Corpuscular Hgb Conc 32.1 g/dL (32.0-36.0); Mean Corpuscular Volume 95.4 fL (80.0-100.0); Mean Platelet Volume 9.9 fL (9.4-12.4); Monocytes # (auto) 0.68 K/uL (0.11-0.59); Monocytes % (auto) 8.2 %; Neutrophils # (auto) 5.97 K/uL (1.40-6.50); Neutrophils % (auto) 71.6 %; Platelet Count 193 K/uL (130-400); RDW Coefficient of Variation 13.2 % (11.5-14.5); RDW Standard Deviation 45.8 fL (36.4-46.3); Red Blood Count 3.72 M/uL (4.20-5.40); White Blood Count 8.34 K/ul (4.8-10.8)
[2023-09-04 07:13] LABS: BUN Creatinine Ratio 28.6 (10-20); Calcium 8.9 mg/dl (8.6-10.3); Est GFR (African American) 108.3 ml/min; Est GFR (Non-African American) 93.5 ml/min; Magnesium 2.1 mg/dl (1.7-2.4); Phosphorus 2.4 mg/dl (2.5-4.9); Potassium 4.4 mmol/L (3.5-5.1)
--- NOTE | 2023-09-04 07:53 | Hospitalist Progress Note ---
Date of Service September 04, 2023 Assessment & Plan (1) S/P spinal surgery: (2) Neurogenic claudication due to lumbar spinal stenosis: (3) Meniere disease: (4) Hyperlipidemia: (5) Chronic pain: (6) IBS (irritable bowel syndrome): (7) Hypothyroidism: (8) Depression: (9) Anxiety: (10) Migraine: (11) GERD (gastroesophageal reflux disease): (12) Chronic UTI: Plan Patient is a 68-year-old female with PMHx significant for dyslipidemia, Mnire's disease, history of migraine headache, GERD, chronic UTI, hypothyroidism, depression, anxiety, IBS, chronic pain, DDD who was seen in medical consultation s/p decompression and fusion L3-L5 today by ortho/spine. Neurogenic claudication due to lumbar spinal stenosis Post op day# 1 s/p decompression and fusion L3-L5 by Dr Britany ROBERTSON#100ml Pain management per ortho Wound management per ortho PT/OT as appropriate DVT prophylaxis per ortho Incentive spirometry Monitor H&H for acute blood loss anemia, pre-op Hgb: 15, currently stable Acute Blood loss Anemia Hgb drop from 15 to ~11 currently Monitor with AM labes transfuse as needed HTN Holding home HCTZ/Triamterene as BP on lower end Pt declining fluid bolus for hypotension Resume as able Hyperlipidemia Continue simvastatin Chronic pain History of chronic neck and back pain On gabapentin, CBD extract and Nucynta CBD held Gabapentin and Nucynta continued by orthospine IBS (irritable bowel syndrome) Continue to dicyclomine, lubiprostone Hypothyroidism Continue levothyroxine Depression Anxiety Continue duloxetine Migraine History migraine headache Denies current headache Continue topiramate GERD (gastroesophageal reflux disease) Continue PPI Chronic UTI On chronic suppression with nitrofurantoin Diet: Advance as tolerated DVT Prophylaxis: per primary Disposition per primary service Thank you for this consultation. We will follow the patient with you during their hospital stay. You can [facility] via [employer] Admission and Anticipated Discharge Date Admission Date: September 01, 2023 Subjective Pt seen sitting in chair. Denied acute concerns. Later notified by nursing, pt's BP on lower side. Ordered fluid bolus and pt declined. Review of Systems Review of Systems: All systems reviewed & are unremarkable except as noted in Subjective Physical Exam Physical Exam: General: Alert, oriented. No acute distress Skin: No noted rashes or bruises Psych: Appropriate mood and affect Neuro: difficulty with movements in the bed HEENT: NC/AT Chest: Nontender to palpation. CV: RRR Resp: Breath sounds clear bilaterally, no increased effort of breathing. Abdomen: Soft, nontender, nondistended Extremities: SCDs on lower extremities bilaterally. Results & Data Results & Data Vital Signs (Past 12 Hours) Vital Signs Temp Pulse Resp BP Pulse Ox O2 Del Method 09/04/23 07:29 36.5 C 64 16 122/68 99 Room Air
[2023-09-04] MEDS ORDERED: POTASSIUM PHOS 3 MMOL/1 ML INFUSION IV STA (10:10)
[2023-09-04] MEDS: POTASSIUM PHOSPHATE 15 MMOL in SODIUM CHLORIDE 0.9% 250 ML IV ONE (11:36)
--- NOTE | 2023-09-04 16:00 | Orthopedic Progress Note ---
Date of Service September 04, 2023 Assessment & Plan (1) Neurogenic claudication due to lumbar spinal stenosis: Plan: At this time continue physical therapy discontinue her drain today and transferred to rehab when bed available. Admission and Anticipated Discharge Date Admission Date: September 01, 2023 Subjective Back pain controlled leg symptoms improved Physical Exam Physical Exam: Patient is in the chair at the bedside. Distracted testing. Peers comfortable. Results & Data Vital Signs (Past 12 Hours) Vital Signs Temp Pulse Resp BP BP Pulse Ox O2 Del Method 09/04/23 15:52 36.4 C L 74 16 98/60 L 92 Room Air 09/04/23 07:29 36.5 C 64 16 122/68 99 Room Air Queries Orthopedic Spine Obesity: Yes
[2023-09-04] MEDS: SODIUM CHLORIDE 0.9% 500 ML IV ONE (18:14)
[2023-09-05 07:02] LABS: Basophils # (auto) 0.03 K/uL (0.00-0.20); Basophils % (auto) 0.4 %; Eosinophils # (auto) 0.02 K/uL (0.00-0.50); Eosinophils % (auto) 0.2 %; Hematocrit (blood only) 35.6 % (37.0-47.0); Hemoglobin 11.5 g/dl (12.0-16.0); Immature Granulocytes # (auto) 0.14 K/uL (0.01-0.20); Immature Granulocytes % (auto) 1.7 %; Lymphocytes # (auto) 2.18 K/uL (1.20-3.40); Lymphocytes % (auto) 26.1 %; Mean Corpuscular Hemoglobin 30.4 pg (25.0-34.0); Mean Corpuscular Hgb Conc 32.3 g/dL (32.0-36.0); Mean Corpuscular Volume 94.2 fL (80.0-100.0); Mean Platelet Volume 10.2 fL (9.4-12.4); Monocytes # (auto) 0.63 K/uL (0.11-0.59); Monocytes % (auto) 7.5 %; Neutrophils # (auto) 5.35 K/uL (1.40-6.50); Neutrophils % (auto) 64.1 %; Platelet Count 239 K/uL (130-400); Red Blood Count 3.78 M/uL (4.20-5.40); White Blood Count 8.35 K/ul (4.8-10.8)
[2023-09-05 07:16] LABS: BUN Creatinine Ratio 32.8 (10-20); Calcium 8.8 mg/dl (8.6-10.3); Creatinine Clr Calc Pharmacy 95.6 ml/min; Est GFR (African American) 111.3 ml/min; Est GFR (Non-African American) 96.1 ml/min; Potassium 3.7 mmol/L (3.5-5.1)
--- NOTE | 2023-09-05 12:48 | Hospitalist Progress Note ---
Date of Service September 05, 2023 Assessment & Plan (1) S/P spinal surgery: (2) Neurogenic claudication due to lumbar spinal stenosis: (3) Meniere disease: (4) Hyperlipidemia: (5) Chronic pain: (6) IBS (irritable bowel syndrome): (7) Hypothyroidism: (8) Depression: (9) Anxiety: (10) Migraine: (11) GERD (gastroesophageal reflux disease): (12) Chronic UTI: Plan Patient is a 68-year-old female with PMHx significant for dyslipidemia, Mnire's disease, history of migraine headache, GERD, chronic UTI, hypothyroidism, depression, anxiety, IBS, chronic pain, DDD who was seen in medical consultation s/p decompression and fusion L3-L5 today by ortho/spine. Neurogenic claudication due to lumbar spinal stenosis s/p decompression and fusion L3-L5 by Dr Garg on 08/31 EBL#100ml Pain management per ortho Wound management per ortho PT/OT as appropriate DVT prophylaxis per ortho Incentive spirometry Monitor H&H for acute blood loss anemia, pre-op Hgb: 15, currently stable Acute Blood loss Anemia Hgb drop from 15 to ~11 currently Stable on discharge Hypophosphatemia Repleted as needed Phosphorus 2.0 on day of discharge, pt supplemented on day of discharge and discharged with 2 days of supplements PCP followup for continued monitoring and supplementation as needed HTN Held home HCTZ/Triamterene as BP on lower end Resume on discharge Hyperlipidemia Continue simvastatin Chronic pain History of chronic neck and back pain On gabapentin, CBD extract and Nucynta CBD held Gabapentin and Nucynta continued by orthospine IBS (irritable bowel syndrome) Continue to dicyclomine, lubiprostone Hypothyroidism Continue levothyroxine Depression Anxiety Continue duloxetine Migraine History migraine headache Denies current headache Continue topiramate GERD (gastroesophageal reflux disease) Continue PPI Chronic UTI On chronic suppression with nitrofurantoin Diet: Advance as tolerated DVT Prophylaxis: per primary Disposition per primary service Admission and Anticipated Discharge Date Admission Date: September 01, 2023 Subjective Pt was seen sitting at bedside. Denied acute concerns. Stated she was being discharged. Review of Systems Review of Systems: All systems reviewed & are unremarkable except as noted in Subjective Physical Exam Physical Exam: General: Alert, oriented. No acute distress Skin: No noted rashes or bruises Psych: Appropriate mood and affect Neuro: difficulty with movements in the bed HEENT: NC/AT Chest: Nontender to palpation. CV: RRR Resp: Breath sounds clear bilaterally, no increased effort of breathing. Abdomen: Soft, nontender, nondistended Extremities: SCDs on lower extremities bilaterally. Results & Data Results & Data Vital Signs (Past 12 Hours) Vital Signs Temp Pulse Resp BP Pulse Ox O2 Del Method 09/05/23 07:30 36.6 C 64 16 123/72 98 Room Air
[2023-09-05] MEDS ORDERED: POT PHOSPHATE MONOBASIC W/ SOD TAB PO SCH (13:00)
[2023-09-05] MEDS: POT PHOSPHATE MONOBASIC W/ SOD TAB PO ONE (13:07)
--- NOTE | 2023-09-05 15:11 | Discharge Summary ---
Date of Service September 05, 2023 Admission HPI Per Admitting Provider This is a 68-year-old female who presents with chronic back and leg pain and failing course of nonoperative care is here for surgical invention. Principal Diagnosis Lumbar spinal stenosis with neurogenic claudication Discharge Data Allergies Allergy/AdvReac Type Severity Reaction Status Date / Time oxycodone Allergy Severe anaphylaxis Verified 09/01/23 08:39 aspirin Allergy Intermediate "stomach Verified 09/01/23 08:39 burning" Consultations 09/01/23 13:32 Consult Hospitalist Routine Procedures Performed Operation Date: 09/01/23 09:25 Actual Procedures p L4-L5 Decompression and Fusion, Spinal Cord Monitoring(Not Applicable) - Garett Garg DO Ordered Studies 09/01/23 [place] lumbar spine 2-3V Routine Hospital Course (1) Neurogenic claudication due to lumbar spinal stenosis: Patient with lumbar decompression fusion tolerated as well as taken orthopedic for postoperative. Postoperatively she progressed appropriately. Back pain controlled. Leg pain improved. YURIY drain decreased appropriately. Excellent strength testing. Subsidy discharged to rehab. Discharge orders instructions found in chart for further review. Total Time Total Time Spent Total Time Spent (In Minutes): 20 minutes Discharge Plan Discharge Items Patient Disposition: Transfer Inpatient Rehab Fac Reason For Visit: Spinal Stenosis of Lumbar Region with Radiculopath Discharge Diagnosis: Lumbar spinal stenosis with radiculopathy Activity: As commented below Non-emergency contact: Primary Care Provider Call non-emergency contact if: you have any medication questions Follow-up/Referrals: Garett Jimenes DO [Primary Care Provider] - Diet: Regular Addtl Attending Provider Instructions: Please ensure followup of phosphorus levels and supplement as needed. ACTIVITY RECOMMENDATIONS: SELF CARE INSTRUCTIONS AFTER THORACIC/LUMBAR FUSIONS 1. You may walk to your tolerance. It is good exercise for your legs and back. Expect some back and intermittent leg aches and pains. 2. You may perform "counter-top" level activities (make a sandwich, yuli with a project, etc.). 3. No bending or lifting of more than 10 pounds or back twisting of any nature (roll like a log when turning in bed). 4. You may ride in a car for 20-30 minutes at a time. No driving until after your first visit with your doctor. 5. Frequent changes of position and restricting sitting to 30 minutes at a time will help limit the amount of back spasms and stiffness you may experience. 6. You may discontinue the use of ambulatory aids (cane, crutches, etc.) once your strength and confidence allow. 7. You may cut in worker the shower and let water strike your incision when you arrive home at least once daily. Do not take a tub bath, sit in a hot tub or go into a swimming pool until after your first recheck in the office. SPECIAL CARE INSTRUCTIONS: VERY IMPORTANT TO READ AND REVIEW A. Your surgical incision has been closed with a cosmetic suture under the skin that will dissolve in about 6 weeks. In 14 days, you can use a pair of clean scissors and cut the suture that is left outside of the skin at the ends of your incision. 1. The small skin tapes can be removed 7 days after surgery if they have not fallen off by that point. 2. You may keep the wound open to air as much as possible to promote healing after post-op day number 5 unless told otherwise by your doctor. 3. If you think the wound looks like it is becoming infected (redness or worsening drainage) and/or you are experiencing fever, chill or worsening back pain and muscle spasms, contact the office so that we may evaluate you as soon as possible. B. Complications are uncommon, but please contact us if you have any signs or symptoms of: 1. wound infection (fever higher than 102.5 degrees F, redness, separation of wound, drainage, or increasing pain from the incision) 2. blood clots in legs (pain, swelling, redness and warmth in legs) 3. urinary tract infection (fever higher than 102.5 degrees F, burning upon urination or increased frequency of urination) 4. nerve problems (inability to walk on your toes or heels, numbness, loss of bowel or bladder control) 5. any other symptoms that concern you C. Please call the office at if you have any concerns or questions about your operation or recovery. D. No smoking! Smoking drastically decreases the chance of a solid fusion. E. Do not take any anti-inflammatory medications (Indocin, Advil, Motrin, Aspirin, Naprosyn, etc.) as these may inhibit the chance of a solid fusion. Tylenol is okay to take for pain. MANAGING PAIN AFTER SPINAL SURGERY 1. Narcotic medication is intended for short-term use and will be provided for surgical pain. Surgical pain usually lasts for a period of 4-6 weeks. Narcotic medication includes Percocet, Vicodin, Darvocet, Tylenol #3 or Lortab. 2. Longer-term pain is more appropriately treated with non-narcotic medication such as Tylenol ES. 3. Muscle spasm is not appropriately treated with narcotics. Muscle relaxers such as Soma, Flexeril or Skelaxin can be used along with Tylenol ES. 4. Remember that we all live with some "aches and pains". This is not unusual or uncommon after an injury or as we get older. a. Back pain is expected and may include muscle spasms for 4 to 6 weeks after surgery. The pain should gradually improve. If the pain worsens for no apparent reason, please contact the office. b. Intermittent leg pain may also be experienced and should not be concerned about unless it worsens for no apparent reason. If so, please contact the office. 5. We will provide appropriate medication within the normal guidelines of their prescribed use. We will also be very cautious and aware of potential abuse and extended duration of patients' medication needs. a. Pain medications are for your comfort and to assist with sleep and rest so that the tissue can heal. They are not provided in order to return to normal activity and should not be used through the day. To do so or worsening pain at night can result from ongoing tissue damage and development of tolerance to the prescribed medicine. 6. Please allow 2-3 days to process refills. Prescriptions will not be mailed but must be picked up at the office. FOLLOW UP VISIT: Keep your scheduled follow-up appointment. Any questions, please call the office at . Pending Studies at Discharge: No Stand-Alone Forms: My [employer], Smoking Cessation Skilled Items Patient informed of condition?: Yes DNR: No Discharge Level of Care: Acute rehab Communicable Disease: No Discharge Prognosis: Improving Lines: None Urinary Catheter: No Medications and DC Order Prescriptions: New Phospha 250 Neutral 250 mg Tablet 2 tab PO QID Qty: 16 0RF Continued celecoxib [Celebrex] 200 mg Capsule 200 mg PO QPM zonisamide [Zonegran] 100 mg Capsule 100 mg PO HS levothyroxine 50 mcg Tablet 50 mcg PO QAM simvastatin 20 mg Tablet 20 mg PO HS gabapentin 300 mg Capsule 300 mg PO BID triamterene-hydrochlorothiazid 37.5-25 mg Tablet 1 tab PO QAM nitrofurantoin macrocrystal [Macrodantin] 25 mg Capsule 25 mg PO QAM duloxetine [Cymbalta] 20 mg Capsule,Delayed Release(Dr/Ec) 20 mg PO QAM tapentadol 50 mg Tablet 50 mg PO QDL tapentadol 150 mg Tablet Extended Release 12 Hr 150 mg PO Q12H dicyclomine 10 mg Capsule 10 mg PO BID pantoprazole [Protonix] 20 mg Tablet,Delayed Release (Dr/Ec) 20 mg PO BID cannabidiol (CBD) extract 750 mg/ml Sublingual HS Rx Instructions: 12-15gtts fluconazole 150 mg Tablet 150 mg PO Q7D cyanocobalamin (vitamin B-12) [Vitamin B-12] 1,000 mcg Tablet 1,000 mcg PO QAM baclofen 10 mg Tablet 10 mg PO TID PRN (Reason: muscle spasms) lubiprostone 8 mcg Capsule 8 mcg PO BID cholecalciferol (vitamin D3) [Vitamin D3] 50 mcg (2,000 unit) Capsule 50 mcg PO QAM lorazepam 0.5 mg Tablet 0.5 mg PO DAILY PRN (Reason: Anxiety) acetaminophen [Tylenol Arthritis Pain] 650 mg Tablet Extended Release 650 mg PO Q12H PRN (Reason: Pain) melatonin 1 tab PO HS PRN (Reason: Sleep) topiramate 50 mg Tablet 50 mg PO BID potassium chloride 20 mEq Tablet Extended Release 20 meq PO DAILY Discharge Orders: Discharge Order (Routine); Ordered 09/05/23 Ordered By: Garett Garg Admission Data Admit Date/Time: 09/01/23 11:22 Attending Provider: Garett Garg Admit Provider: Garett Garg Primary Care Provider: Garett Jimenes Other Providers: Ameena Barth; [facility] Other Interventions: Discharge Summary Assessment (RN) Last Done: 09/05/23 09:55
== END 2023-09-05 13:25 | DRG 454 ==
LOC: ASU 08:02 → 3W 11:22
DX: Z98.1 Arthrodesis status; N39.0 Urinary tract infection, site not specified; F41.9 Anxiety disorder, unspecified; Z88.6 Allergy status to analgesic agent; G43.909 Migraine, unspecified, not intractable, without status migrainosus; G89.29 Other chronic pain; E78.5 Hyperlipidemia, unspecified; I10 Essential (primary) hypertension; Z79.890 Hormone replacement therapy; Z79.2 Long term (current) use of antibiotics; Z87.440 Personal history of urinary (tract) infections; H81.09 Meniere's disease, unspecified ear; K58.9 Irritable bowel syndrome, unspecified; Z88.5 Allergy status to narcotic agent; F32.A Depression, unspecified; M48.062 Spinal stenosis, lumbar region with neurogenic claudication; K21.9 Gastro-esophageal reflux disease without esophagitis; Z79.891 Long term (current) use of opiate analgesic; E03.9 Hypothyroidism, unspecified; D62 Acute posthemorrhagic anemia; Z79.899 Other long term (current) drug therapy; M54.16 Radiculopathy, lumbar region